=== PATIENT | male | born 1955 | race Caucasian/White ===

== ENCOUNTER 2021-03-08 13:04 | Emergency (ER) | payer OTHER ==
[~2021-03-08] VITALS: Ht 182.9 cm; Wt 158.8 kg
[~2021-03-08 13:04] MED LIST: CARI350T PO; FENT100T TD; ONDA8TAB87 PO
[2021-03-08 13:10] VITALS: BP 151/102
--- NOTE | 2021-03-08 13:16 | NUR ---
PT W/C ASSISTED TO AWAIT IN LOBBY
--- NOTE | 2021-03-08 13:48 | NUR ---
Patient wheelchair assisted to bed 7.
[2021-03-08] MEDS ORDERED: ONDANSETRON 4 MG/2 ML VIAL IVP ONE (13:50)
[2021-03-08] MEDS ORDERED: MORPHINE SULFATE 4 MG/ML SYR IVP ONE ×2 (13:50→16:25)
[2021-03-08] MEDS ORDERED: NACL 0.9% 1,000 ML IV ONE (13:50)
--- NOTE | 2021-03-08 14:00 | NUR ---
65 YEAR OLD MALE COMPLAINS OF LEFT SIDED HERNIA X 4 DAYS. PT STATES THAT HERNIA HAS BEEN PRESENT FOR 4 YEARS AND RECENTLY FELT INCREASED PAIN AND MORE BULGING FROM HERNIA. PT ALSO STATES SOME NAUSEA WITH VOMITTING. PT DENIES DIARRHEA OR BLOOD IN VOMIT/STOOL. PT AOX4, BREATHING EVEN AND UNLABORED, SKIN WARM AND DRY. BED IN LOWEST POSITION, LOCKED, BED RAIL UPX1. PMH - BACK SURGERY, STEMI (2017,2019), 2 HEART STENTS ALLERGIES - DENIES
[2021-03-08] MEDS ORDERED: KETOROLAC 15 MG/ML VIAL IVP ONE (15:05)
[2021-03-08 15:10] LABS: ALBUMIN 4.2 g/dL (3.4-5.0); ANION GAP 15.8 (8-16); CARBON DIOXIDE 22.5 mmol/L (21-32); POTASSIUM 4.3 mmol/L (3.5-5.1); TOTAL BILIRUBIN 0.4 mg/dL (0.0-1.0)
[2021-03-08 15:52] LABS: BASOPHILS # (AUTO) 0.1 K/uL (0.00-0.22); BASOPHILS % (AUTO) 0.7 % (0.0-2.0); EOSINOPHILS # (AUTO) 0.2 K/uL (0-0.4); EOSINOPHILS % (AUTO) 2.8 % (0.0-4.0); HEMATOCRIT 45.6 % (36-52); HEMOGLOBIN 15.1 g/dL (12.0-18.0); LYMPHOCYTES # (AUTO) 1.8 K/uL (2.0-11.5); LYMPHOCYTES % (AUTO) 20.3 % (20.5-51.1); MEAN CORPUSCULAR HEMOGLOBIN 29 pg (27-31); MEAN CORPUSCULAR HGB CONC 33 g/dL (33-37); MONOCYTES # (AUTO) 0.9 K/uL (0.8-1.0); MONOCYTES % (AUTO) 10.3 % (1.7-9.3); NEUTROPHILS # (AUTO) 5.8 K/uL (1.8-7.7); NEUTROPHILS % (AUTO) 65.9 % (42.2-75.2); PLATELET COUNT (AUTO) 362 K/uL (140-450); RED BLOOD CELL COUNT(AUTO) 5.19 MIL/uL (4.20-6.10); RED CELL DISTRIBUTION WIDTH 13.7 % (11.6-13.7); WHITE BLOOD COUNT (AUTO) 8.9 K/uL (4.8-10.8)
[2021-03-08 16:13] LABS: CREATININE 1.1 mg/dL (0.6-1.3)
[2021-03-08] MEDS ORDERED: IBUP-2213 PO (16:26)
[2021-03-08 17:14] VITALS: BP 154/84
--- NOTE | 2021-03-08 17:14 | NUR ---
Patient discharged with v/s stable. Written and verbal after care instructions given and explained. Patient alert, oriented and verbalized understanding of instructions. Wheel Chair Assisted with to car. All questions addressed prior to discharge. ID band removed. Patient advised to follow up with PMD. Rx of IBUPROFEN given. Patient educated on indication of medication including possible reaction and side effects. Opportunity to ask questions provided and answered.
== END 2021-03-08 17:14 | disposition home or self-care (01) ==
LOC: MED 13:04
DX: K64.9 Unspecified hemorrhoids (principal); I11.9 Hypertensive heart disease without heart failure; Z79.899 Other long term (current) drug therapy; Z98.890 Other specified postprocedural states
CPT/HCPCS: 36415; 74176; 80053; 82150; 83605; 85025; 96361; 96374; 96375; 96376; 99285; J1885; J2270; J2405; J7030

== ENCOUNTER 2021-03-16 16:05 | Inpatient (IN) | payer OTHER ==
[~2021-03-16] VITALS: Ht 182.9 cm; Wt 158.8 kg
[~2021-03-16 16:05] MED LIST changes: +IBUP-2213 PO
[2021-03-16 16:26] VITALS: BP 111/64
--- NOTE | 2021-03-16 16:36 | NUR ---
Pt taken to ER bed 8 via W/C.
--- NOTE | 2021-03-16 16:50 | NUR ---
65 YEAR OLD MALE COMPLAINS OF LEFT FLANK PAIN X 3 WEEKS. PT STATES PAIN HAS BEEN GETTING PROGRESSIVELY WORSE AND THAT HE NOW HAS NAUSEA, VOMITTING FOR PAST 3 DAYS. PT DENIES DYSURIA, BUT HAS HARD TIME URINATING WITH FOUL ODOR. PT AOX4, BREATHING EVEN AND UNLABORED, SKIN WARM AND DRY. BED IN LOWEST POSITION, LOCKED, BED RAIL UPX1. PMH - HTN, COPD, INCISIONAL HERNIA, HEART STENT ALLERGIES - NKA
[2021-03-16] MEDS ORDERED: MORPHINE SULFATE 4 MG/ML SYR IVP ONE ×3 (18:10→21:50)
[2021-03-16] MEDS ORDERED: ONDANSETRON 4 MG/2 ML VIAL IVP ONE (18:10)
--- NOTE | 2021-03-16 18:15 | NUR ---
PT STILL UNABLE TO URINATE, DR WALTON AWARE
[2021-03-16 18:45] LABS: ALBUMIN 3.5 g/dL (3.4-5.0); ANION GAP 9.3 (8-16); CARBON DIOXIDE 29.9 mmol/L (21-32); CREATININE 1.4 mg/dL (0.6-1.3); POTASSIUM 4.2 mmol/L (3.5-5.1); TOTAL BILIRUBIN 0.3 mg/dL (0.0-1.0)
[2021-03-16] MEDS ORDERED: NACL 0.9% 1,000 ML IV ONE ×2 (18:55→19:50)
[2021-03-16 19:02] LABS: BASOPHILS # (AUTO) 0.1 K/uL (0.00-0.22); BASOPHILS % (AUTO) 0.9 % (0.0-2.0); EOSINOPHILS # (AUTO) 0.6 K/uL (0-0.4); EOSINOPHILS % (AUTO) 6.5 % (0.0-4.0); HEMATOCRIT 45.3 % (36-52); HEMOGLOBIN 14.7 g/dL (12.0-18.0); MEAN CORPUSCULAR HEMOGLOBIN 29 pg (27-31); MEAN CORPUSCULAR HGB CONC 32 g/dL (33-37); MEAN CORPUSCULAR VOLUME 88.1 fL (80-94); MONOCYTES # (AUTO) 0.9 K/uL (0.8-1.0); MONOCYTES % (AUTO) 10.9 % (1.7-9.3); NEUTROPHILS # (AUTO) 4.9 K/uL (1.8-7.7); NEUTROPHILS % (AUTO) 57.7 % (42.2-75.2); PLATELET COUNT (AUTO) 316 K/uL (140-450); RED BLOOD CELL COUNT(AUTO) 5.14 MIL/uL (4.20-6.10); WHITE BLOOD COUNT (AUTO) 8.4 K/uL (4.8-10.8)
--- NOTE | 2021-03-16 19:13 | NUR ---
REPORT GIVEN TO TADEO OROZCO, TRANSFER OF CARE AT THIS TIME
--- NOTE | 2021-03-16 19:14 | NUR ---
RECEIVED REPORT FROM FRANKIE OROZCO FOR CONTINIUITY OF CARE
--- NOTE | 2021-03-16 19:20 | NUR ---
PT TAKEN TO CT
--- NOTE | 2021-03-16 19:36 | NUR ---
PT RETURNED FROM CT
--- NOTE | 2021-03-16 20:10 | NUR ---
COVID AURE SWAB COLLECTED AND SENT TO LAB
[2021-03-16] MEDS ORDERED: POTASSIUM CHLORIDE 10 MEQ TABER PO PRN (20:30)
[2021-03-16] MEDS ORDERED: MORPHINE SULFATE 2 MG/ML SYR IVP PRN (20:30)
[2021-03-16] MEDS ORDERED: ACETAMINOPHEN 325 MG TAB PO PRN (20:30)
--- NOTE | 2021-03-16 20:37 | NUR ---
RADIOLOGY AT BEDSIDE
[2021-03-16 20:38] LABS: PROTHROMBIN TIME 9.9 secs (10.8-13.4)
[2021-03-16] MEDS: NACL 0.9% 1,000 ML IV SCH (21:00)
[2021-03-16 22:42] LABS: CHOL/HDL RATIO 2.4 (1-4.5); FREE T4 (FREE THYROXINE) 1.05 ng/dL (0.76-1.46); MAGNESIUM 1.9 mg/dL (1.8-2.4); PHOSPHORUS 3.6 mg/dL (2.5-4.9); THYROID STIMULATING HORMONE 3.56 uIU/mL (0.34-3.74)
[2021-03-17] MEDS: MORPHINE SULFATE 2 MG/ML SYR IVP PRN ×4 (02:17→21:07)
--- NOTE | 2021-03-17 02:25 | NUR ---
URINE SAMPLE COLLECTED AND SENT TO LAB
[2021-03-17 03:11] LABS: APPEARANCE,URINE CLEAR (CLEAR); BILIRUBIN,URINE NEGATIVE (NEGATIVE); BLOOD, URINE NEGATIVE (NEGATIVE); COLOR,URINE YELLOW (YELLOW); LEUKOCYTE ESTERASE ,URINE NEGATIVE (NEGATIVE); NITRITE, URINE NEGATIVE (NEGATIVE); UGLUCOSE NEGATIVE (NEGATIVE)
[2021-03-17] MEDS: NACL 0.9% 1,000 ML IV SCH (03:17)
[2021-03-17 03:29] LABS: BARBITURATE, URINE NEGATIVE ng/ml (NEG <=200)
[2021-03-17 03:30] LABS: BENZODIAZEPINE, URINE NEGATIVE ng/mL (NEG <=200); CANNABINOID, URINE NEGATIVE ng/mL (NEG <=50); COCAINE, URINE NEGATIVE ng/mL (NEG <=300); OPIATE, URINE POSITIVE ng/mL (NEG <=2000); PHENCYCLIDINE SCREEN,URINE NEGATIVE ng/mL (NEG <=25)
--- NOTE | 2021-03-17 04:32 | NUR ---
pt asleep. visible chest rise and fall noted. no s/sx of pain or discomfort noted. safety measures in place. will continue to monitor.
[2021-03-17 05:27] LABS: BASOPHILS # (AUTO) 0.1 K/uL (0.00-0.22); EOSINOPHILS # (AUTO) 0.5 K/uL (0-0.4); EOSINOPHILS % (AUTO) 6.4 % (0.0-4.0); HEMATOCRIT 43.3 % (36-52); HEMOGLOBIN 14.2 g/dL (12.0-18.0); LYMPHOCYTES # (AUTO) 2.3 K/uL (2.0-11.5); LYMPHOCYTES % (AUTO) 31.3 % (20.5-51.1); MEAN CORPUSCULAR HEMOGLOBIN 29 pg (27-31); MEAN CORPUSCULAR HGB CONC 33 g/dL (33-37); MEAN CORPUSCULAR VOLUME 89.3 fL (80-94); MONOCYTES # (AUTO) 0.9 K/uL (0.8-1.0); MONOCYTES % (AUTO) 12.2 % (1.7-9.3); NEUTROPHILS # (AUTO) 3.6 K/uL (1.8-7.7); NEUTROPHILS % (AUTO) 49.1 % (42.2-75.2); PLATELET COUNT (AUTO) 285 K/uL (140-450); RED BLOOD CELL COUNT(AUTO) 4.85 MIL/uL (4.20-6.10); RED CELL DISTRIBUTION WIDTH 13.7 % (11.6-13.7); WHITE BLOOD COUNT (AUTO) 7.3 K/uL (4.8-10.8)
[2021-03-17 05:57] LABS: ANION GAP 11.3 (8-16); CARBON DIOXIDE 26.2 mmol/L (21-32); POTASSIUM 4.5 mmol/L (3.5-5.1)
--- NOTE | 2021-03-17 07:25 | NUR ---
report given to susan edwards for continuity of care
--- NOTE | 2021-03-17 07:48 | NUR ---
CLEAR LIQUID DIET, NPO MIDNIGHT PER DR ROBERT
--- NOTE | 2021-03-17 07:57 | NUR ---
Patient will be admitted to care of Dr Ferreira. Admited to [facility]. Will go to room 112A. Belongings list completed. Report to Patricio OROZCO.
[2021-03-17 08:00] VITALS: BP 151/73
--- NOTE | 2021-03-17 08:00 | NUR ---
PATIENT ARRIVED FROM ER. ABLE TO AMBULATE TO [facility] BED WITH STEADY GAIT. NO DISTRESS NOTED. LEFT FLANK PAIN WITHIN TOLERABLE. ON ROOM AIR. IV SITE INTACT. SKIN INTACT. ORIENTED PATIENT TO ROOM AND CALL LIGHT. REVIEWED PLAN OF CARE WITH PATIENT. PATIENT VERBALIZED UNDERSTANDING. SAFETY MEASURES IN PLACE, CALL LIGHT WITHIN REACH. WILL CONTINUE TO MONITOR.
[2021-03-17] MEDS: PANTOPRAZOLE 40 MG TABEC PO SCH (09:16)
[2021-03-17] MEDS: DEXT 5% / NACL 0.9% 500 ML IV SCH ×2 (09:16→12:40)
--- NOTE | 2021-03-17 09:19 | NUR ---
PATIENT COMPLAINS OF PAIN. SCHEDULED MEDICATIONS DUE GIVEN AND MORPHINE GIVEN AT THIS TIME. WILL CONTINUE TO MONITOR.
[2021-03-17] MEDS: HYDROcodone/APAP 7.5/325 MG 1 TAB PO PRN (14:04)
[2021-03-17] MEDS: ONDANSETRON 4 MG/2 ML VIAL IM/IVP PRN ×2 (14:55→21:16)
--- NOTE | 2021-03-17 14:55 | NUR ---
PATIENT COMPLAINS OF PAIN, NORCO MILDLY EFFECTIVE. MORPHINE GIVEN AT THIS TIME. ALSO COMPLAINS OF NAUSEA. ZOFRAN GIVEN AT THIS TIME. WILL CONTINUE TO MONITOR.
[2021-03-17 16:00] VITALS: BP 153/98
[2021-03-17] MEDS ORDERED: FURO-570 PO (17:12)
[2021-03-17] MEDS ORDERED: PANT40EC PO (17:12)
[2021-03-17] MEDS ORDERED: ASPI-1822 PO (17:12)
[2021-03-17] MEDS ORDERED: LIP80 PO (17:12)
[2021-03-17] MEDS ORDERED: DULO60EC75 PO (17:12)
[2021-03-17] MEDS ORDERED: ATA25 PO (17:12)
[2021-03-17] MEDS ORDERED: CARV6.25 PO (17:12)
[2021-03-17] MEDS ORDERED: CHOL20004 PO (17:12)
[2021-03-17] MEDS ORDERED: TAMS0.4C96 PO (17:12)
[2021-03-17] MEDS ORDERED: POTA10TE30 PO (17:12)
[2021-03-17] MEDS: DEXT 5% / NACL 0.9% 1,000 ML IV SCH (17:37)
--- NOTE | 2021-03-17 19:35 | NUR ---
GAVE REPORT TO GEOGRAPHY INSTRUCTOR NURSE FOR CONTINUITY OF CARE. PATIENT IN STABLE CONDITION.
--- NOTE | 2021-03-17 19:37 | NUR ---
RECEIVED REPORT FROM AM SHIFT RN. PATIENT IN BED AWAKE, ALERT, NO SOB NOTED. COMPLAINED OF PAIN ON THE LEFT FLANK WILL MEDICATE. SAFETY PRECAUTIONS IN PLACE. IVF OF D5NS INFUSING AT 125 ML/HR ON THE GRACIE. CALL LIGHT WITHIN REACH. WILL CONTINUE TO MONITOR.
[2021-03-17] MEDS: carvediloL 6.25 MG TAB PO SCH (21:04)
--- NOTE | 2021-03-17 21:13 | NUR ---
ADMINISTERED MEDICATIONS ORDERED.
--- NOTE | 2021-03-17 21:17 | NUR ---
COMPLAINED OF NAUSEA, ZOFRAN GIVEN ORDERED.
[2021-03-18] VITALS: BP 180/85
[2021-03-18] MEDS: DEXT 5% / NACL 0.9% 1,000 ML IV SCH ×3 (02:05→16:06)
--- NOTE | 2021-03-18 02:30 | NUR ---
PT GIVEN IVP MORPHINE FOR C/O OF SEVERE PAIN. BAG OF FLUID REPLACED. Addendum: 03/19/21 at 0318 by Estela Christiansen RN WRONG DATE
[2021-03-18] MEDS: ONDANSETRON 4 MG/2 ML VIAL IM/IVP PRN ×3 (03:18→23:27)
[2021-03-18] MEDS: MORPHINE SULFATE 2 MG/ML SYR IVP PRN ×2 (03:21→09:29)
--- NOTE | 2021-03-18 03:21 | NUR ---
COMPLAINED OF SEVERE FLANK PAIN, MORPHINE 4MG GIVEN ORDERED.
[2021-03-18 07:11] LABS: BASOPHILS % (AUTO) 0.6 % (0.0-2.0); EOSINOPHILS # (AUTO) 0.5 K/uL (0-0.4); EOSINOPHILS % (AUTO) 6.5 % (0.0-4.0); HEMOGLOBIN 13.8 g/dL (12.0-18.0); LYMPHOCYTES # (AUTO) 1.9 K/uL (2.0-11.5); MEAN CORPUSCULAR HEMOGLOBIN 29 pg (27-31); MEAN CORPUSCULAR HGB CONC 33 g/dL (33-37); MEAN CORPUSCULAR VOLUME 88.7 fL (80-94); MONOCYTES # (AUTO) 0.9 K/uL (0.8-1.0); MONOCYTES % (AUTO) 12.1 % (1.7-9.3); NEUTROPHILS # (AUTO) 4.2 K/uL (1.8-7.7); NEUTROPHILS % (AUTO) 55.8 % (42.2-75.2); PLATELET COUNT (AUTO) 272 K/uL (140-450); RED BLOOD CELL COUNT(AUTO) 4.74 MIL/uL (4.20-6.10); RED CELL DISTRIBUTION WIDTH 13.6 % (11.6-13.7); WHITE BLOOD COUNT (AUTO) 7.5 K/uL (4.8-10.8)
[2021-03-18 07:42] LABS: ANION GAP 9.4 (8-16); CARBON DIOXIDE 25.5 mmol/L (21-32); POTASSIUM 3.9 mmol/L (3.5-5.1)
[2021-03-18 08:00] VITALS: BP 186/87
[2021-03-18] MEDS: carvediloL 6.25 MG TAB PO SCH ×2 (08:23→21:41)
--- NOTE | 2021-03-18 08:50 | NUR ---
PATIENT HAS BEEN SCREENED AND CATEGORIZED LOW NUTRITION RISK. PATIENT WILL BE SEEN WITHIN 7 DAYS OF ADMISSION. 03/23/[address]
[2021-03-18] MEDS: PANTOPRAZOLE 40 MG TABEC PO SCH (09:00)
[2021-03-18] MEDS: FUROSEMIDE 40 MG TAB PO SCH (09:00)
[2021-03-18 09:06] LABS: T4 (THYROXINE) 7.9 ug/dL (4.5-12.0)
--- NOTE | 2021-03-18 10:13 | NUR ---
PT STATES DR Camille ROBERT ROUNDED YESTERDAY AND DISCUSSED PROCEDURE INCLUDING RISKS AND BENEFIT, PT DENIES ANY FURTHER QUESTIONS FOR DR ROBERT, PT VERBALIZED FULL UNDERSTANDING OF SURGERY, AGREES TO SIGN CONSENT.
--- NOTE | 2021-03-18 10:14 | NUR ---
PRE-OP CHG WIPE DONE.
--- NOTE | 2021-03-18 10:55 | NUR ---
PT LEFT TO ER VIA [facility].
[2021-03-18] MEDS ORDERED: ceFAZolin 1,000 MG VIAL ONE (11:06)
[2021-03-18] MEDS ORDERED: MIDAZOLAM 2 MG/2 ML VIAL ONE (11:10)
[2021-03-18] MEDS ORDERED: fentaNYL citrate 0.05 MG/ML VIAL ONE (11:10)
[2021-03-18] MEDS ORDERED: LABETALOL 100 MG/20 ML VIAL ONE (11:15)
[2021-03-18] MEDS ORDERED: SUCCINYLCHOLINE CHLORIDE 200 MG/10 ML VIAL IVP ONE ×2 (11:15)
[2021-03-18] MEDS ORDERED: PROPOFOL 200 MG/20 ML VIAL IV ONE (11:15)
[2021-03-18] MEDS ORDERED: SEVOFLURANE 250 ML BTL INH ONE (11:15)
[2021-03-18] MEDS ORDERED: LIDOCAINE 1% 500 MG/50 ML VIAL ONE (11:17)
[2021-03-18] MEDS ORDERED: BUPIVACAINE-MPF/EPI 0.25% 30 ML VIAL INJ ONE (11:17)
--- NOTE | 2021-03-18 11:25 | NUR ---
RECEIVED BEDSIDE REPORT FROM BRADLEY LINEBACKER CREWMEMBER NURSE FOR CONTINUITY OF CARE. PT IS IN THE OR FOR HERNIA REPAIR SURGERY. WILL WAIT FOR PTS ARRIVAL. PLAN OF CARE DISCUSSED.
--- NOTE | 2021-03-18 11:25 | NUR ---
ENDORSED PT TO ERNESTO BOLANOS FOR CONTINUITY OF CARE. PT IN ER.
[2021-03-18] MEDS ORDERED: ROCURONIUM 50 MG/5 ML VIAL IV ONE ×2 (11:39→12:15)
[2021-03-18] MEDS ORDERED: HYDROcodone/APAP 5/325 MG 1 TAB TAB PO PRN (11:40)
[2021-03-18] MEDS ORDERED: HYDROmorphone 1 MG/ML AMP IVP PRN ×2 (11:40→12:20)
[2021-03-18] MEDS ORDERED: ePHEDrine 50 MG/ML VIAL ONE (11:47)
[2021-03-18] MEDS ORDERED: DEXAMETHASONE 4 MG/ML VIAL ONE ×2 (11:58)
[2021-03-18] MEDS ORDERED: ONDANSETRON 4 MG/2 ML VIAL ONE (11:58)
--- NOTE | 2021-03-18 11:59 | NUR ---
DC PLANNIN YRS OLD MALE PATIENT WAS ADMITTED FROM HOME WITH A DX OF INCARCERATED HERNIA. PT HAS A HX OF CARDIOVASCULAR DISEASE S/P STENT PLACEMENT HTN, COPD, OBESITY AND BACK SURGERY. CT ABD SHOWED HERNIA. PT UNDERWENT REPAIR OF INCARCERATED LEFT FLANK HERNIA WITH MESH. ADMINISTERED IVF, IV ABX LEVAQUIN, PAIN MEDS WITH MORPHINE IV AND CONTINUED HOME MEDS. PT STATED HE HAS MOST OF SUPPLIES THAT HE NEEDS SUCH : WALKER, CANE ,WHEELCHAIR , SHOWER CHAIR AND HOSPITAL BED. DC PLAN TO GO HOME WITH HOME HEALTH IF NEEDED. CM TO FOLLOW
[2021-03-18] MEDS ORDERED: diphenhydrAMINE 50 MG/ML VIAL IVP PRN (12:20)
[2021-03-18] MEDS ORDERED: MEPERIDINE 25 MG/ML SYR IVP PRN (12:20)
[2021-03-18] MEDS ORDERED: ONDANSETRON 4 MG/2 ML VIAL IVP PRN (12:20)
[2021-03-18] MEDS: LACTATED RINGERS 1,000 ML IV SCH ×2 (12:20→20:40)
[2021-03-18] MEDS ORDERED: SUGAMMADEX SODIUM 200 MG/2 ML VIAL IV ONE (13:25)
[2021-03-18] MEDS ORDERED: MEPERIDINE 50 MG/ML SYR ONE (13:33)
--- NOTE | 2021-03-18 14:30 | NUR ---
PT IS BACK FROM THE OR. ABD BINDER IN PLACE. OR NURSE REPORTED THAT HERNIA REPAIR WAS COMPLETED WITH MESH IN PLACE AND ABD DRESSING. WILL MONITOR FOR BLEEDING. WILL MONITOR POST OP VS. PT IS STABLE AT THIS TIME.
--- NOTE | 2021-03-18 15:59 | NUR ---
POST-OP VITAL SIGNS COMPLETE. VS ARE STABLE. HR 83, BP 165/98, RR 19, O2 SAT 90%, TEMP 98.1 F, AND PT DENIES PAIN. NO BLEEDING NOTED ON DRESSING. ABD BINDER IN PLACE. WILL CONTINUE TO MONITOR.
[2021-03-18 16:00] VITALS: BP 157/90
[2021-03-18] MEDS: HYDROcodone/APAP 7.5/325 MG 1 TAB PO PRN (17:52)
--- NOTE | 2021-03-18 17:52 | NUR ---
PT STATES HE HAS PAIN IN HIS ABD AT A SCALE OF 6/10. PT WAS GIVEN NORCO FOR PAIN. PT DESCRIBES THE PAIN SHARP. WILL CONTINUE TO MONITOR PAIN.
[2021-03-18] MEDS: MORPHINE SULFATE 4 MG/ML SYR IVP PRN (18:37)
--- NOTE | 2021-03-18 18:37 | NUR ---
PT STATES THE PAIN HAS NOT BEEN REDUCED SINCE RECEIVING THE NORCO. PT NOW STATES THE PAIN IS AT A 10/10 IN THE ABD. PT IS IN DISTRESS. MEDICATED WITH MORPHINE ORDERED FOR PAIN. BP WAS 178/99 PRIOR TO ADMINISTRATION OF MEDICATION. WILL MONITOR PAIN AND BP.
--- NOTE | 2021-03-18 19:13 | NUR ---
PT STATES HE IS NAUSEOUS AND WAS GIVEN ZOFRAN FOR NAUSEA. WILL MONITOR PT.
--- NOTE | 2021-03-18 19:30 | NUR ---
RECEIVED REPORT FORM RN DAYSHIFT NURSE AT BEDSIDE FOR CONTINUITY OF CARE, PT IN STABLE CONDITION. PT LYING IN BED AOX4 ON ROOM AIR WITH LEFT UPPER ARM 20G INTACT AND RUNNING D5N/S AT 125MLS/HR. HE HAS SCD ON HE IS CONTINENT WITH URINAL AT BEDSIDE, ALL UNIVERSAL FALLS PRECAUTIONS IN PLACE.
--- NOTE | 2021-03-18 19:35 | NUR ---
ENDORSED PT TO GUNNER MATE NURSE FOR CONTINUITY OF CARE. PT IS STABLE AT THIS TIME. PLAN OF CARE DISCUSSED.
[2021-03-18 20:00] VITALS: BP 183/96
--- NOTE | 2021-03-18 20:00 | NUR ---
PT V/S FOLLOWS: T 97.6 P 96 R 20 B/P 183/96 02 95% ON ROOM AIR. PT GIVEN ORDERED COREG, WILL SPEAK WITH MD REGARDING PT B/P FOR PRN HTN ORDER.
[2021-03-18] MEDS ORDERED: hydrALAZINE 20 MG/ML VIAL IVP PRN (22:00)
[2021-03-18] MEDS ORDERED: HYDROmorphone 1 MG/ML AMP IVP SCH (22:00)
--- NOTE | 2021-03-18 23:15 | NUR ---
SPOKE WITH NEW ORDERED NOTED FOR HYDRALAZINE AND X1 DILAUDID DOSE, ALSO FLUIDS DECREASED TO 60MLS/HR. PT GIVEN MEDS ORDERED.
--- NOTE | 2021-03-18 23:45 | NUR ---
PT GIVEN ZOFRAN FOR C/OF NAUSEA ALL OTHER REQUESTS ATTENDED BY STAFF.
[2021-03-19] MEDS: MORPHINE SULFATE 4 MG/ML SYR IVP PRN ×4 (02:26→21:19)
--- NOTE | 2021-03-19 02:30 | NUR ---
NEW BAG OF FLUID HUNG, PT GIVEN IVP MORPHINE FOR SEVERE PAIN
[2021-03-19] MEDS: LACTATED RINGERS 1,000 ML IV SCH (04:23)
[2021-03-19 06:35] LABS: ANION GAP 13.6 (8-16); CARBON DIOXIDE 24.6 mmol/L (21-32); CREATININE 1.1 mg/dL (0.6-1.3); POTASSIUM 4.2 mmol/L (3.5-5.1)
[2021-03-19 06:51] LABS: HEMOGLOBIN 13.9 g/dL (12.0-18.0); LYMPHOCYTES # (AUTO) 0.8 K/uL (2.0-11.5); LYMPHOCYTES % (AUTO) 4.4 % (20.5-51.1); MEAN CORPUSCULAR HEMOGLOBIN 29 pg (27-31); MEAN CORPUSCULAR HGB CONC 34 g/dL (33-37); MEAN CORPUSCULAR VOLUME 86.5 fL (80-94); MONOCYTES % (AUTO) 5.9 % (1.7-9.3); NEUTROPHILS # (AUTO) 15.8 K/uL (1.8-7.7); NEUTROPHILS % (AUTO) 89.7 % (42.2-75.2); PLATELET COUNT (AUTO) 324 K/uL (140-450); RED BLOOD CELL COUNT(AUTO) 4.74 MIL/uL (4.20-6.10); RED CELL DISTRIBUTION WIDTH 13.5 % (11.6-13.7); WHITE BLOOD COUNT (AUTO) 17.6 K/uL (4.8-10.8)
[2021-03-19 08:00] VITALS: BP 160/78
[2021-03-19] MEDS: DEXT 5% / NACL 0.9% 1,000 ML IV SCH ×2 (08:40→20:00)
[2021-03-19] MEDS: PANTOPRAZOLE 40 MG TABEC PO SCH (09:00)
[2021-03-19] MEDS: FUROSEMIDE 40 MG TAB PO SCH (09:01)
[2021-03-19] MEDS: lisinopriL 20 MG TAB PO SCH (09:03)
[2021-03-19] MEDS: carvediloL 6.25 MG TAB PO SCH ×2 (09:05→20:05)
[2021-03-19] MEDS: LEVOFLOXACIN 750 MG/D5W PREMIX 150 ML IV SCH (10:51)
[2021-03-19] MEDS ORDERED: ECOTRIN 81 MG TABEC PO SCH (13:51)
[2021-03-19 16:00] VITALS: BP 148/78
--- NOTE | 2021-03-19 19:25 | NUR ---
RECEIVED REPORT FROM AM NURSE. PT. IS AWAKE, ALERT, IN NO DISTRESS NOTED. WILL CONTINUE TO MONITOR.
--- NOTE | 2021-03-19 20:05 | NUR ---
SCHEDULED MEDS GIVEN ORDERED.
[2021-03-19] MEDS: guaiFENesin DM 200/20 MG-10 ML 10 ML UDC PO PRN (23:12)
--- NOTE | 2021-03-19 23:40 | NUR ---
PT COMPLAINED OF SEVERE FLANK PAIN NOT YET DUE. NOTIFY MD WITH ORDER TO GIVE 2MG IVP. ORDER NOTED AND CARRIED OUT.
[2021-03-19] MEDS ORDERED: MORPHINE SULFATE 2 MG/ML SYR IVP SCH (23:45)
[2021-03-20] VITALS: BP 147/83
[2021-03-20] MEDS: ZOLPIDEM 5 MG TAB PO PRN (00:38)
[2021-03-20] MEDS: DEXT 5% / NACL 0.9% 1,000 ML IV SCH ×3 (00:40→20:34)
[2021-03-20] MEDS: MORPHINE SULFATE 4 MG/ML SYR IVP PRN ×4 (04:36→19:52)
[2021-03-20] MEDS: guaiFENesin DM 200/20 MG-10 ML 10 ML UDC PO PRN (06:36)
[2021-03-20 06:50] LABS: BASOPHILS % (AUTO) 0.2 % (0.0-2.0); EOSINOPHILS % (AUTO) 0.2 % (0.0-4.0); HEMOGLOBIN 13.7 g/dL (12.0-18.0); LYMPHOCYTES # (AUTO) 1.7 K/uL (2.0-11.5); LYMPHOCYTES % (AUTO) 11.1 % (20.5-51.1); MEAN CORPUSCULAR HEMOGLOBIN 29 pg (27-31); MEAN CORPUSCULAR HGB CONC 33 g/dL (33-37); MEAN CORPUSCULAR VOLUME 88.5 fL (80-94); MONOCYTES % (AUTO) 13.2 % (1.7-9.3); NEUTROPHILS # (AUTO) 11.4 K/uL (1.8-7.7); NEUTROPHILS % (AUTO) 75.3 % (42.2-75.2); PLATELET COUNT (AUTO) 299 K/uL (140-450); RED BLOOD CELL COUNT(AUTO) 4.75 MIL/uL (4.20-6.10); RED CELL DISTRIBUTION WIDTH 13.7 % (11.6-13.7); WHITE BLOOD COUNT (AUTO) 15.2 K/uL (4.8-10.8)
[2021-03-20 07:01] LABS: ANION GAP 10.4 (8-16); CARBON DIOXIDE 28.5 mmol/L (21-32); CREATININE 1.1 mg/dL (0.6-1.3); POTASSIUM 3.9 mmol/L (3.5-5.1)
[2021-03-20 07:45] VITALS: BP 159/89
--- NOTE | 2021-03-20 07:55 | NUR ---
RECEIVED REPORT FROM PM NURSE. PT NOW ASLEEP IN BED. LOOKS COMFORTABLE. IV INTACT D5 NS @ 125, BED AT LOWEST. LIGHT WITHIN REACH, WILL CONT MONITORING.
[2021-03-20] MEDS: PANTOPRAZOLE 40 MG TABEC PO SCH (09:24)
[2021-03-20] MEDS: ECOTRIN 81 MG TABEC PO SCH (09:24)
[2021-03-20] MEDS: lisinopriL 20 MG TAB PO SCH (09:25)
[2021-03-20] MEDS: FUROSEMIDE 40 MG TAB PO SCH (09:25)
[2021-03-20] MEDS: carvediloL 6.25 MG TAB PO SCH ×2 (09:26→20:34)
[2021-03-20] MEDS ORDERED: KETOROLAC 15 MG/ML VIAL IVP PRN (09:35)
[2021-03-20] MEDS: LEVOFLOXACIN 750 MG/D5W PREMIX 150 ML IV SCH (10:29)
--- NOTE | 2021-03-20 10:59 | NUR ---
ATTEMPTED TO SEE PATIENT THROUGHOUT MORNING FOR PHYSICAL THERAPY TREATMENT HOWEVER PATIENT REPORTS NOT FEELING WELL WITH LACK OF SLEEP AND CONTINUES WITH 9/10 INCISIONAL PAIN. PATIENT IS PRE-MEDICATED; RN AWARE. WILL FOLLOW UP TOMORROW IF APPROPRIATE.
[2021-03-20] MEDS: DOCUSATE SODIUM 100 MG GELCAP PO PRN (11:02)
[2021-03-20 18:25] VITALS: BP 149/91
--- NOTE | 2021-03-20 18:55 | NUR ---
NO SIGNIFICANT CHANGES OCCURED. PT REMAINED STABLE TRHOGUH SHIFT. PT HAD C/O PAIN AND PRN MORPHINE WAS GIVEN. INCREASED DOSE HAS BEEN CONTROLLING PTS PAIN. PT VS REMAINED STABLE. ALL MEETS FOR TODAY WILL ENDORSE RPEORT TO RN.
--- NOTE | 2021-03-20 20:00 | NUR ---
RECEIVED PATIENT AWAKE IN BED. PT REPORTS OF 8/10 LEFT ABDOMINAL PAIN. PRN MEDICATION ADMINISTERED. INCISION NOTED TO THE LEFT LATERAL SIDE OF THE ABDOMEN. INCISION CDI. ABDOMINAL BINDER IN PLACE. PT ON ROOM AIR. NO SOB AT THIS TIME. PLAN OF CARE DISCUSSED WITH THE PATIENT. PT VERBALIZED UNDERSTANDING. BED LOWERED WITH CALL LIGHT WITHIN REACH
--- NOTE | 2021-03-20 23:00 | NUR ---
PT ASLEEP IN BED. NO S/S OF DISTRESS NOTED
[2021-03-21] VITALS: BP 144/77
[2021-03-21] MEDS: MORPHINE SULFATE 4 MG/ML SYR IVP PRN ×6 (00:17→21:58)
[2021-03-21] MEDS: ZOLPIDEM 5 MG TAB PO PRN ×2 (00:17→23:50)
[2021-03-21 05:08] VITALS: BP 138/79
[2021-03-21] MEDS: DEXT 5% / NACL 0.9% 1,000 ML IV SCH ×4 (05:19→20:56)
[2021-03-21 07:05] LABS: BASOPHILS # (AUTO) 0.1 K/uL (0.00-0.22); BASOPHILS % (AUTO) 0.7 % (0.0-2.0); EOSINOPHILS # (AUTO) 0.3 K/uL (0-0.4); EOSINOPHILS % (AUTO) 2.1 % (0.0-4.0); HEMATOCRIT 41.7 % (36-52); HEMOGLOBIN 13.7 g/dL (12.0-18.0); LYMPHOCYTES # (AUTO) 2.1 K/uL (2.0-11.5); MEAN CORPUSCULAR HEMOGLOBIN 29 pg (27-31); MEAN CORPUSCULAR HGB CONC 33 g/dL (33-37); MEAN CORPUSCULAR VOLUME 87.9 fL (80-94); MONOCYTES # (AUTO) 2.9 K/uL (0.8-1.0); NEUTROPHILS # (AUTO) 9.7 K/uL (1.8-7.7); NEUTROPHILS % (AUTO) 64.2 % (42.2-75.2); PLATELET COUNT (AUTO) 317 K/uL (140-450); RED BLOOD CELL COUNT(AUTO) 4.74 MIL/uL (4.20-6.10); RED CELL DISTRIBUTION WIDTH 14.2 % (11.6-13.7); WHITE BLOOD COUNT (AUTO) 15.1 K/uL (4.8-10.8)
[2021-03-21 07:18] LABS: ANION GAP 12.6 (8-16); CARBON DIOXIDE 27.2 mmol/L (21-32); CREATININE 1.2 mg/dL (0.6-1.3); POTASSIUM 3.8 mmol/L (3.5-5.1)
--- NOTE | 2021-03-21 07:35 | NUR ---
RECEIVED BEDSIDE REPORT FROM SHEET METAL ERECTOR NURSE. PATIENT IS ASLEEP AROUSABLE BY TOUCH AND NAME, RESPIRATION EVEN UNLABORED ON ROOM AIR. NO DISTRESS NOTED. SKIN IS WARM AND DRY. IV PATENT AND INTACT. PLAN OF CARE WAS DISCUSSED. ALL SAFETY MEASURES IN PLACE. BED IS AT LOW POSITION. CALL LIGHT WITHIN REACH, WILL CONTINUE TO MONITOR
--- NOTE | 2021-03-21 07:36 | NUR ---
PT REPORT GIVEN TO AM NURSE. PT ENDORSED IN STABLE CONDITION
[2021-03-21 08:00] VITALS: BP 163/77
[2021-03-21] MEDS: LEVOFLOXACIN 750 MG/D5W PREMIX 150 ML IV SCH (08:49)
[2021-03-21] MEDS: ECOTRIN 81 MG TABEC PO SCH (08:49)
[2021-03-21] MEDS: PANTOPRAZOLE 40 MG TABEC PO SCH (08:49)
[2021-03-21] MEDS: FUROSEMIDE 40 MG TAB PO SCH (08:50)
[2021-03-21] MEDS: lisinopriL 20 MG TAB PO SCH (08:50)
[2021-03-21] MEDS: carvediloL 6.25 MG TAB PO SCH ×2 (08:51→20:55)
--- NOTE | 2021-03-21 09:10 | NUR ---
ALL SCHEDULED MEDS WERE GIVEN PER ORDER. WILL CONTINUE TO MONITOR
--- NOTE | 2021-03-21 09:28 | NUR ---
PATIENT COMPLAINED OF ABD PAIN 9/. PRN PAIN MEDS GIVEN PER ORDER. WILL CONTINUE TO MONITOR
--- NOTE | 2021-03-21 11:07 | NUR ---
CHECKED ON PATIENT, PATIENT IV LEAKING, ASSESS IV SITE. IV INFILTRATED WILL INSERT NEW ONE
--- NOTE | 2021-03-21 12:00 | NUR ---
INSERTED NEW IV TO THE RIGHT FOREARM 22 GAUGE, PATIENT TOLERATED IT WELL. WILL CONTINUE TO MONITOR
--- NOTE | 2021-03-21 13:42 | NUR ---
PATIENT COMPLAINED OF ABD PAIN 9/. PRN PAIN MEDS GIVEN PER ORDER. WILL CONTINUE TO MONITOR
[2021-03-21] MEDS: metroNIDAZOLE 500 MG/NS PREMIX 100 ML IV SCH ×2 (14:39→20:54)
--- NOTE | 2021-03-21 15:55 | NUR ---
DC PLANNING: CM SPOKE WITH CASSIE AT [facility], STATES THEY WILL ACCEPT PATIENT ON SERVICE FOR BALE OPENER AFTER DISCHARGE. CM WILL FOLLOW FOR NEEDS. Addendum: 03/22/21 at 1513 by Jannie Alston CM DC PLANNING: NOTIFIED [facility] THAT PATIENT IS DISCHARGING TODAY, THEY WILL SEE PATIENT THIS WEEKEND. CM WILL FOLLOW FOR NEEDS.
[2021-03-21 16:00] VITALS: BP 110/60
--- NOTE | 2021-03-21 16:00 | NUR ---
MADE ROUNDS PATIENT ASLEEP, NO DISTRESS NOTED, WILL CONTINUE TO MONITOR
--- NOTE | 2021-03-21 17:57 | NUR ---
PATIENT COMPLAINED OF ABD PAIN 7/10 PRN PAIN MEDS GIVEN PER ORDER. WILL CONTINUE TO MONITOR
--- NOTE | 2021-03-21 19:16 | NUR ---
ENDORSED PATIENT TO RAWHIDE TRIMMER NURSE FOR CONTINUITY OF CARE
--- NOTE | 2021-03-21 19:20 | NUR ---
Received bedside report from AM RN. Pt in bed watching TV. Pt AA OX4, greeted us politely in a simple conversation. Resp reg non-labored.no noted Resp. distress.
[2021-03-21 20:20] VITALS: BP 137/76
[2021-03-21] MEDS: DOCUSATE SODIUM 100 MG GELCAP PO PRN (20:54)
--- NOTE | 2021-03-21 21:00 | NUR ---
MED PASS DONE. PT TOLERATED PO MEDS WELL BP WNL. WATCHING TV.
[2021-03-21] MEDS: ONDANSETRON 4 MG/2 ML VIAL IM/IVP PRN (21:58)
[2021-03-22] MEDS: MORPHINE SULFATE 4 MG/ML SYR IVP PRN ×4 (01:54→15:09)
[2021-03-22 04:20] VITALS: BP 128/67
[2021-03-22] MEDS: metroNIDAZOLE 500 MG/NS PREMIX 100 ML IV SCH ×2 (06:03→12:54)
[2021-03-22] MEDS: DEXT 5% / NACL 0.9% 1,000 ML IV SCH (06:03)
--- NOTE | 2021-03-22 07:20 | NUR ---
REPORT TO AM RN. PT AWAKE IN NAD.
--- NOTE | 2021-03-22 07:25 | NUR ---
PT RECEIVED FROM ASSISTANT INFANT TEACHER RN. PT RESTING IN BED EYES CLOSED. BREATHING IS SYMMETRICAL AND UNLABORED. CALL LIGHT WITHIN REACH ALL SAFETY MEASURES ARE IN PLACE. Addendum: 03/22/21 at 0842 by Mercedes De Guzman RN RN DONE BY [place]
[2021-03-22 07:26] LABS: ANION GAP 8.4 (8-16); CARBON DIOXIDE 29.2 mmol/L (21-32); CREATININE 1.1 mg/dL (0.6-1.3); POTASSIUM 3.6 mmol/L (3.5-5.1)
[2021-03-22 07:27] LABS: BASOPHILS # (AUTO) 0.1 K/uL (0.00-0.22); BASOPHILS % (AUTO) 0.6 % (0.0-2.0); EOSINOPHILS # (AUTO) 0.6 K/uL (0-0.4); EOSINOPHILS % (AUTO) 4.6 % (0.0-4.0); HEMATOCRIT 41.5 % (36-52); HEMOGLOBIN 13.6 g/dL (12.0-18.0); LYMPHOCYTES % (AUTO) 15.8 % (20.5-51.1); MEAN CORPUSCULAR HEMOGLOBIN 29 pg (27-31); MEAN CORPUSCULAR HGB CONC 33 g/dL (33-37); MEAN CORPUSCULAR VOLUME 88.8 fL (80-94); MONOCYTES # (AUTO) 2.1 K/uL (0.8-1.0); MONOCYTES % (AUTO) 16.8 % (1.7-9.3); NEUTROPHILS # (AUTO) 7.7 K/uL (1.8-7.7); NEUTROPHILS % (AUTO) 62.2 % (42.2-75.2); PLATELET COUNT (AUTO) 350 K/uL (140-450); RED BLOOD CELL COUNT(AUTO) 4.67 MIL/uL (4.20-6.10); RED CELL DISTRIBUTION WIDTH 13.7 % (11.6-13.7); WHITE BLOOD COUNT (AUTO) 12.4 K/uL (4.8-10.8)
[2021-03-22] MEDS: PANTOPRAZOLE 40 MG TABEC PO SCH (08:27)
[2021-03-22] MEDS: ECOTRIN 81 MG TABEC PO SCH (08:27)
[2021-03-22] MEDS: LEVOFLOXACIN 750 MG/D5W PREMIX 150 ML IV SCH (08:27)
[2021-03-22] MEDS: FUROSEMIDE 40 MG TAB PO SCH (08:28)
[2021-03-22] MEDS: lisinopriL 20 MG TAB PO SCH (08:29)
[2021-03-22] MEDS: carvediloL 6.25 MG TAB PO SCH (08:29)
--- NOTE | 2021-03-22 08:35 | NUR ---
MEDICATIONS GIVEN PER MD ORDER. PT EDUCATED VERBALIZED UNDERSTANDING. NO S/SX OF DISTRESS AT THIS TIME. ALL SAFETY MEASURES ARE IN PLACE. Addendum: 03/22/21 at 0842 by Mercedes De Guzman RN RN DONE BY PR
--- NOTE | 2021-03-22 08:36 | NUR ---
PT AT BEDSIDE. PT DISCONNECTED FROM IV. PT EDUCATED TO CALL SOON DONE FOR THERAPY CONTINUATION Addendum: 03/22/21 at 0844 by Mercedes De Guzman RN RN DONE BY [place]
--- NOTE | 2021-03-22 08:41 | NUR ---
PT ASSESSED. S1 S2 PRESENT, PT ABLE TO MOVE ALL EXTREMITIES, LUNGS DIMINISHED.
--- NOTE | 2021-03-22 08:42 | NUR ---
DONE BY ME
[2021-03-22] MEDS ORDERED: POLYETHYLENE GLYCOL 17 GM/PKT PO SCH (09:00)
--- NOTE | 2021-03-22 09:00 | NUR ---
PT CONNECTED BACK TO FLUIDS FOR CONTINUATION OF THERAPY. PT AMBULATED AROUND UNIT PT TOLERATED WELL.
[2021-03-22] MEDS ORDERED: METR500T1 PO (10:02)
[2021-03-22] MEDS ORDERED: CIPR500T4 PO (10:02)
[2021-03-22] MEDS ORDERED: ACET-9527 PO (10:02)
--- NOTE | 2021-03-22 11:20 | NUR ---
PT REASSESSED. DENIES PAIN AT THIS TIME
--- NOTE | 2021-03-22 12:54 | NUR ---
MEDICATIONS GIVEN PER MD ORDER. PT EDUCATED AND VERBALIZED UNDERSTANDING . NO S/SX OF DISTRESS
[2021-03-22 13:42] VITALS: BP 117/73
--- NOTE | 2021-03-22 15:12 | NUR ---
PRN MEDICATIONS GIVEN PER MD ORDER
[2021-03-22 16:00] VITALS: BP 125/70
--- NOTE | 2021-03-22 17:35 | NUR ---
PT L;EFT UNIT VIA WHEEL CHAIR , IV REMOVED CANULA INTACT. PT EDUCATED AND VERBALIZED UNDERSTANDING OF CONTINUITY OF CARE, ARM BANDS REMOVED. PT AMBULATED TO PRIVATE VEHICLE TOLERATED WELL. PT LEFT IN STABLE CONDITION
== END 2021-03-22 17:35 | disposition home health service (06) | DRG 353 ==
LOC: MED 16:05 → MTU 20:29 → MMU 03-17 05:34 → MTU 03-17 08:41
PROVIDERS: ADMIT Family Medicine; ATTEND Family Medicine
PROC: 0WUF0JZ Supplement Abdominal Wall with Synthetic Substitute, Open Approach (ICD-10-PCS; principal; 2021-03-18 10:40)
DX: K46.0 Unspecified abdominal hernia with obstruction, without gangrene (principal); N17.0 Acute kidney failure with tubular necrosis; G92 Toxic encephalopathy; J18.9 Pneumonia, unspecified organism; Z68.42 Body mass index [BMI] 45.0-49.9, adult; J44.0 Chronic obstructive pulmonary disease with (acute) lower respiratory infection; Z20.822 Contact with and (suspected) exposure to COVID-19; E66.01 Morbid (severe) obesity due to excess calories; I10 Essential (primary) hypertension; I25.10 Atherosclerotic heart disease of native coronary artery without angina pectoris; K76.0 Fatty (change of) liver, not elsewhere classified; E78.2 Mixed hyperlipidemia; E86.0 Dehydration; F15.10 Other stimulant abuse, uncomplicated; Z95.5 Presence of coronary angioplasty implant and graft; Z87.820 Personal history of traumatic brain injury
CPT/HCPCS: 36415; 71045; 80048; 80053; 80305; 81003; 82150; 83036; 83605; 83690; 83735; 83880; 84100; 84436; 84439; 84443; 84479; 84484; 85025; 85610; 85730; 86140; 86886; 86900; 86901; 87040; 87081; 88302; 96361; 96374; 96375; 96376; 97110; 97116; 97163-GP; 97530; 99285; C1781; J0330; J0360; J0690; J1100; J1170; J1956; J2001; J2175; J2250; J2270; J2405; J2704; J3010; J3490; J7120; Q0163

== ENCOUNTER 2021-03-30 20:51 | Emergency (ER) | payer OTHER ==
[~2021-03-30] VITALS: Ht 182.9 cm; Wt 154.2 kg
[~2021-03-30 20:51] MED LIST changes: +ACET-9527 PO; +ASPI-1822 PO; +ATA25 PO; +CARV6.25 PO; +CHOL20004 PO; +CIPR500T4 PO; +DULO60EC75 PO; -FENT100T TD; +FURO-570 PO; +LIP80 PO; +METR500T1 PO; +PANT40EC PO; +POTA10TE30 PO; +TAMS0.4C96 PO
[2021-03-30 21:25] VITALS: BP 110/71
--- NOTE | 2021-03-30 21:25 | NUR ---
TO BED VIA WHEELCHAIR
--- NOTE | 2021-03-30 21:40 | NUR ---
RECEIVED IN BED 10 WITH C/O LUNDY TO SOLES OF BOTH FEET X 4 DAYS AFTER WALKING BAREFOOT ON HOT SURFACE. BASEBALL SIZED BLISTERS, RUPTURED NOTED. NO DRAINAGE NOTED AT THIS TIME
[2021-03-30] MEDS ORDERED: ACETAMINOPHEN 325 MG TAB PO ONE (21:55)
--- NOTE | 2021-03-30 22:08 | NUR ---
X-Ray at bedside.
--- NOTE | 2021-03-30 22:19 | NUR ---
DR. FAROOQ AT BEDSIDE FOR EXAM
[2021-03-30] MEDS ORDERED: MORPHINE SULFATE 4 MG/ML SYR IM ONE (22:30)
[2021-03-30] MEDS ORDERED: BACITRACIN ZINC/POLYMYXIN B OINT 30 GM TUBE TP SCH (22:30)
[2021-03-30] MEDS ORDERED: ONDANSETRON 4 MG ODT PO ONE (22:30)
[2021-03-30] MEDS ORDERED: BACITRACIN OINT 500 UNITS/GM PKT TP ONE (22:53)
[2021-03-30] MEDS ORDERED: BACI-389 TP (23:23)
[2021-03-30] MEDS ORDERED: CEPH-588 PO (23:24)
--- NOTE | 2021-03-30 23:40 | NUR ---
DSD APPLIED TO BOTH FEET.
[2021-03-30 23:55] VITALS: BP 110/71
--- NOTE | 2021-03-30 23:55 | NUR ---
Patient discharged with v/s stable. Written and verbal after care instructions given and explained. Patient alert, oriented and verbalized understanding of instructions. Wheel Chair Assisted with to car. All questions addressed prior to discharge. ID band removed. Patient advised to follow up with PMD. Rx of KEFLEX, POLYSPORIN given. Patient educated on indication of medication including possible reaction and side effects. Opportunity to ask questions provided and answered.
== END 2021-03-30 23:55 | disposition home or self-care (01) ==
LOC: MED 20:51
DX: T25.222A Burn of second degree of left foot, initial encounter (principal); T25.221A Burn of second degree of right foot, initial encounter; L03.116 Cellulitis of left lower limb; L03.115 Cellulitis of right lower limb; R19.7 Diarrhea, unspecified; I10 Essential (primary) hypertension; Z98.890 Other specified postprocedural states; Z79.899 Other long term (current) drug therapy; Z79.82 Long term (current) use of aspirin; X08.8XXA Exposure to other specified smoke, fire and flames, initial encounter; Y93.89 Activity, other specified; Y92.89 Other specified places as the place of occurrence of the external cause; Y99.8 Other external cause status
CPT/HCPCS: 16020; 73630; 90471; 90715; 96372; 99284; J2270; Q0162

== ENCOUNTER 2021-08-27 13:13 | Emergency (ER) | payer OTHER ==
[~2021-08-27] VITALS: Ht 182.9 cm; Wt 147.4 kg
[~2021-08-27 13:13] MED LIST changes: -ACET-9527 PO; -ATA25 PO; +CHLO118S2 TP; -CIPR500T4 PO; +HYDR-5080 PO; -IBUP-2213 PO; -METR500T1 PO; +MUPI2CRE22 NS; -ONDA8TAB87 PO; -PANT40EC PO; -POTA10TE30 PO
[2021-08-27 13:23] VITALS: BP 184/114
[2021-08-27] MEDS ORDERED: ONDANSETRON 4 MG ODT PO ONE ×2 (13:50→14:55)
[2021-08-27] MEDS ORDERED: fentaNYL citrate 0.05 MG/ML VIAL IM ONE ×2 (13:50→14:55)
--- NOTE | 2021-08-27 15:07 | NUR ---
Pt medicated and returned to lobby
[2021-08-27 15:45] VITALS: BP 164/99
--- NOTE | 2021-08-27 15:46 | NUR ---
Pt assessed and discharged by LA Villanueva
--- NOTE | 2021-08-27 15:46 | NUR ---
Patient discharged with v/s stable. Written and verbal after care instructions given and explained. Patient verbalized understanding. Ambulatory with steady gait. All questions addressed prior to discharge. Advised to follow up with PMD.
== END 2021-08-27 15:45 | disposition home or self-care (01) ==
LOC: MED 13:13
DX: M54.50 Low back pain, unspecified (principal); G89.29 Other chronic pain; I10 Essential (primary) hypertension; I25.10 Atherosclerotic heart disease of native coronary artery without angina pectoris; Z79.2 Long term (current) use of antibiotics; Z79.899 Other long term (current) drug therapy; Z79.891 Long term (current) use of opiate analgesic; Z79.82 Long term (current) use of aspirin; Z88.6 Allergy status to analgesic agent; Z88.5 Allergy status to narcotic agent
CPT/HCPCS: 72131; 96372; 99284; J3010; Q0162

== ENCOUNTER 2021-09-27 14:01 | Emergency (ER) | payer OTHER ==
[~2021-09-27] VITALS: Ht 182.9 cm; Wt 149.7 kg
[2021-09-27 14:23] VITALS: BP 141/93
--- NOTE | 2021-09-27 14:30 | NUR ---
Patient to bed 10.
--- NOTE | 2021-09-27 14:40 | NUR ---
Dr. Huang is evaluating patient at bedside
--- NOTE | 2021-09-27 14:50 | NUR ---
66 y/o BIB self c/o chest pain, SOB, dry cough, sore throat x 3 weeks. Patient A&Ox4, GCS 15 reports symptoms began 3 weeks ago in which he was seen at [place] and treated with IV ABX and fluids. Pt reports discharged home and completed 5 day Azithyromycin treatment 4 days ago. Patient presents to the ER stating symptoms are not improving. Pt reports sternal chest pain 4/10, dull/intermittent, non-radiating pain. Denies medications prior to arrival. Pt denies fever, chills, nausea, vomiting, diarrhea, headache, dizziness. Skin pink/warm/dry. Pt placed onto media monitor showing SpO2 96% on room air; HR 96, RR even/unlabored. Bed locked in lowest position, side rails x 1, call light in reach. PMH: cardiac stents/SC (November 2019), HTN Meds: hydralazine, atorvastatin, ASA, prasogrel, potassium, tasulosin, hydroxyzine, pantoprazole, furosemide, duloxetine, carvedilol, [place] A: tylenol, dilaudid
[2021-09-27 15:14] LABS: BASOPHILS # (AUTO) 0.1 K/uL (0.00-0.22); BASOPHILS % (AUTO) 0.8 % (0.0-2.0); EOSINOPHILS # (AUTO) 0.7 K/uL (0-0.4); EOSINOPHILS % (AUTO) 7.8 % (0.0-4.0); HEMATOCRIT 43.5 % (36-52); HEMOGLOBIN 14.7 g/dL (12.0-18.0); LYMPHOCYTES # (AUTO) 1.6 K/uL (2.0-11.5); LYMPHOCYTES % (AUTO) 17.8 % (20.5-51.1); MEAN CORPUSCULAR HEMOGLOBIN 29 pg (27-31); MEAN CORPUSCULAR HGB CONC 34 g/dL (33-37); MEAN CORPUSCULAR VOLUME 85.9 fL (80-94); MONOCYTES # (AUTO) 1.2 K/uL (0.8-1.0); MONOCYTES % (AUTO) 12.8 % (1.7-9.3); NEUTROPHILS # (AUTO) 5.5 K/uL (1.8-7.7); NEUTROPHILS % (AUTO) 60.8 % (42.2-75.2); PLATELET COUNT (AUTO) 336 K/uL (140-450); RED BLOOD CELL COUNT(AUTO) 5.06 MIL/uL (4.20-6.10); RED CELL DISTRIBUTION WIDTH 15.2 % (11.6-13.7); WHITE BLOOD COUNT (AUTO) 9.1 K/uL (4.8-10.8)
[2021-09-27] MEDS ORDERED: LEVO750T51 PO ×2 (15:51→17:16)
[2021-09-27] MEDS ORDERED: PRED20TA5 PO ×2 (15:51→17:16)
[2021-09-27] MEDS ORDERED: IBUP-2213 PO ×2 (15:51→17:16)
[2021-09-27] MEDS ORDERED: KETOROLAC 60 MG/2 ML VIAL IM ONE (16:00)
--- NOTE | 2021-09-27 16:00 | NUR ---
Pt reports 7/[address] chest and back pain. Dr. Huang made aware; new orders to be placed.
[2021-09-27] MEDS ORDERED: KETOROLAC 30 MG/ML VIAL ONE (16:19)
[2021-09-27] MEDS ORDERED: KETOROLAC 30 MG/ML VIAL IVP ONE (16:20)
[2021-09-27 16:47] LABS: ALBUMIN 3.4 g/dL (3.4-5.0); ANION GAP 15.5 (8-16); CARBON DIOXIDE 25.9 mmol/L (21-32); CREATININE 1.1 mg/dL (0.6-1.3); POTASSIUM 4.4 mmol/L (3.5-5.1); TOTAL BILIRUBIN 0.3 mg/dL (0.0-1.0)
[2021-09-27] MEDS ORDERED: MORPHINE SULFATE 4 MG/ML SYR IVP ONE (16:55)
--- NOTE | 2021-09-27 17:20 | NUR ---
Pt states + relief to pain 0/10 at this time. All pt needs met.
--- NOTE | 2021-09-27 17:24 | NUR ---
IV removed, catheter intact and site benign. Applied folded 2x2 gauze and tape to stop bleeding.
[2021-09-27 17:26] VITALS: BP 142/79
--- NOTE | 2021-09-27 17:26 | NUR ---
Patient discharged with v/s stable. Written and verbal after care instructions given and explained. Patient alert, oriented and verbalized understanding of instructions. Ambulatory with steady gait. All questions addressed prior to discharge. ID band removed. Patient advised to follow up with PMD. Rx of Ibuprofen, Levofloxacin, Prednisone given. Patient educated on indication of medication including possible reaction and side effects. Opportunity to ask questions provided and answered.
== END 2021-09-27 17:26 | disposition home or self-care (01) ==
LOC: MED 14:01
DX: J18.9 Pneumonia, unspecified organism (principal); I11.9 Hypertensive heart disease without heart failure; Z88.5 Allergy status to narcotic agent; Z88.8 Allergy status to other drugs, medicaments and biological substances
CPT/HCPCS: 36415; 71045; 80053; 83880; 84484; 85025; 93005; 96374; 96375; 99285; J1885; J2270; Q0092

== ENCOUNTER 2021-10-05 20:22 | Inpatient (IN) | payer OTHER, SELFPAY ==
[~2021-10-05] VITALS: Ht 182.9 cm; Wt 157.4 kg
[~2021-10-05 20:22] MED LIST changes: +IBUP-2213 PO; +LEVO750T51 PO; +PRED20TA5 PO
[2021-10-05 20:48] VITALS: BP 155/71
--- NOTE | 2021-10-05 20:55 | NUR ---
pt taken to bed 05 using w/c.
--- NOTE | 2021-10-05 21:14 | NUR ---
Dr. Romero at bedside to exam patient.
[2021-10-05] MEDS ORDERED: NACL 0.9% 1,000 ML IV ONE ×2 (21:25→22:25)
[2021-10-05] MEDS ORDERED: ALBUTEROL SULFATE/IPRATROPIU 3 ML SOL IH ONE ×2 (21:25)
[2021-10-05] MEDS ORDERED: methylPREDNISolone SS 125 MG/2 ML VIAL IVP ONE (21:25)
--- NOTE | 2021-10-05 21:42 | NUR ---
COVID-19 and Flu swabs collected and sent to lab.
--- NOTE | 2021-10-05 21:44 | NUR ---
CXR at bedside.
--- NOTE | 2021-10-05 21:50 | NUR ---
Patient signs consent for CT scan with contrast.
--- NOTE | 2021-10-05 21:55 | NUR ---
RT at bedside for Breathing treatments.
[2021-10-05 21:56] LABS: BASOPHILS # (AUTO) 0.1 K/uL (0.00-0.22); BASOPHILS % (AUTO) 0.4 % (0.0-2.0); EOSINOPHILS # (AUTO) 0.9 K/uL (0-0.4); EOSINOPHILS % (AUTO) 4.4 % (0.0-4.0); HEMATOCRIT 44.3 % (36-52); HEMOGLOBIN 14.8 g/dL (12.0-18.0); LYMPHOCYTES # (AUTO) 1.7 K/uL (2.0-11.5); LYMPHOCYTES % (AUTO) 8.2 % (20.5-51.1); MEAN CORPUSCULAR HEMOGLOBIN 29 pg (27-31); MEAN CORPUSCULAR HGB CONC 34 g/dL (33-37); MEAN CORPUSCULAR VOLUME 86.5 fL (80-94); MONOCYTES # (AUTO) 1.6 K/uL (0.8-1.0); MONOCYTES % (AUTO) 7.5 % (1.7-9.3); NEUTROPHILS # (AUTO) 16.4 K/uL (1.8-7.7); NEUTROPHILS % (AUTO) 79.5 % (42.2-75.2); PLATELET COUNT (AUTO) 320 K/uL (140-450); RED BLOOD CELL COUNT(AUTO) 5.12 MIL/uL (4.20-6.10); RED CELL DISTRIBUTION WIDTH 15.9 % (11.6-13.7); WHITE BLOOD COUNT (AUTO) 20.7 K/uL (4.8-10.8)
[2021-10-05 22:14] LABS: ALBUMIN 3.4 g/dL (3.4-5.0); ANION GAP 13.7 (8-16); CARBON DIOXIDE 28.5 mmol/L (21-32); CREATININE 0.9 mg/dL (0.6-1.3); POTASSIUM 4.2 mmol/L (3.5-5.1); TOTAL BILIRUBIN 0.5 mg/dL (0.0-1.0)
[2021-10-05] MEDS ORDERED: AZITHROMYCIN 250 MG TAB PO ONE (22:25)
[2021-10-05] MEDS ORDERED: cefTRIAXone 2,000 MG in DEXTROSE 5% 100 ML IV ONE (22:25)
[2021-10-05] MEDS ORDERED: cefTRIAXone 2,000 MG VIAL ONE (22:39)
--- NOTE | 2021-10-05 23:14 | NUR ---
Patient reported, lower back pain, pain rate 04/02, Dr. Caraballo notified.
[2021-10-05] MEDS ORDERED: MORPHINE SULFATE 4 MG/ML SYR IVP ONE (23:25)
[2021-10-06] MEDS ORDERED: HYDROcodone/APAP 5/325 MG 1 TAB TAB PO PRN (00:10)
[2021-10-06] MEDS ORDERED: POTA10TA70 PO (00:28)
--- NOTE | 2021-10-06 00:32 | NUR ---
Med rec reviewed.
[2021-10-06] MEDS ORDERED: PRASUGREL PO (00:38)
[2021-10-06] MEDS ORDERED: ATA25 PO (00:38)
[2021-10-06] MEDS ORDERED: OXYC5TAB4 PO (00:38)
--- NOTE | 2021-10-06 01:04 | NUR ---
Moved to hospital bed.
[2021-10-06] MEDS ORDERED: MORPHINE SULFATE 4 MG/ML SYR IVP ONE (01:30)
--- NOTE | 2021-10-06 02:28 | NUR ---
Patient reported, back pain, and need more medication, Given Morphine 4 mg IV as order by ERNESTO Wade.
[2021-10-06] MEDS ORDERED: HYDR-1098 PO (03:12)
[2021-10-06] MEDS ORDERED: PRAS10TA8 PO (03:16)
--- NOTE | 2021-10-06 03:19 | NUR ---
Patient appears to be resting comfortably in bed.
--- NOTE | 2021-10-06 04:16 | NUR ---
Patient is sleeping,
--- NOTE | 2021-10-06 05:39 | NUR ---
Patient reported, back pain, 810.
[2021-10-06] MEDS: MORPHINE SULFATE 2 MG/ML SYR IVP PRN ×4 (05:58→21:40)
--- NOTE | 2021-10-06 06:46 | NUR ---
Patient is sleeping.
--- NOTE | 2021-10-06 07:12 | NUR ---
Report given to ERNESTO Holcomb and endorse care of patient.
[2021-10-06] MEDS ORDERED: ONDANSETRON 4 MG/2 ML VIAL IVP PRN (07:15)
--- NOTE | 2021-10-06 07:28 | NUR ---
RECEIVED REPORT FROM ERNESTO WRIGHT. ASSUMED CARE AT THIS TIME.
--- NOTE | 2021-10-06 08:45 | NUR ---
PATIENT PROVIDED WITH BREAKFAST TRAY, SITTING UP IN BED EATING. PATIENT ON BEDSIDE JOB DEVELOPER, WILL COTINUE TO MONITOR.
[2021-10-06] MEDS ORDERED: ALBUTEROL SULFATE/IPRATROPIU 3 ML SOL IH PRN (09:00)
[2021-10-06] MEDS ORDERED: PRASUGREL HCL 10 MG PO SCH (09:00)
--- NOTE | 2021-10-06 09:54 | NUR ---
Ultrasound at bedside.
[2021-10-06] MEDS: ASPIRIN 81 MG TAB.CHEW PO SCH (09:57)
[2021-10-06] MEDS: hydrALAZINE 25 MG TAB PO SCH ×2 (09:57→21:04)
[2021-10-06] MEDS: HYDROXYZINE HYDROCHLORIDE 25 MG TAB PO SCH ×2 (09:57→22:53)
[2021-10-06] MEDS: TAMSULOSIN 0.4 MG CAP PO SCH (09:58)
[2021-10-06] MEDS: carvediloL 6.25 MG TAB PO SCH (09:58)
[2021-10-06] MEDS: DULoxetine 30 MG CAPDR PO SCH (09:58)
[2021-10-06] MEDS: ATORVASTATIN 80 MG TAB PO SCH (09:59)
[2021-10-06] MEDS: POTASSIUM CHLORIDE 10 MEQ TABER PO SCH (09:59)
[2021-10-06] MEDS: FUROSEMIDE 40 MG TAB PO SCH (09:59)
[2021-10-06] MEDS: CHOLECALCIFEROL 1,000 IU TAB PO SCH (10:00)
--- NOTE | 2021-10-06 10:20 | NUR ---
PATIENT C/O 9/10 BACK PAIN, MEDICATED WITH MORPHINE PER PRN ORDER.
[2021-10-06] MEDS: LEVOFLOXACIN 500 MG/D5W PREMIX 100 ML IV SCH (10:22)
[2021-10-06] MEDS: methylPREDNISolone SS 40 MG/ML VIAL IVP SCH ×2 (10:23→22:53)
--- NOTE | 2021-10-06 11:46 | NUR ---
S/W PATIENTS PAWEL AND GIVEN UPDATE ON PATIENT CONDITION.
--- NOTE | 2021-10-06 12:42 | NUR ---
PATIENT PROVIDED WITH LUNCH TRAY, SITTING UP IN BED EATING. PATIENT ON BEDSIDE DETASSELER, WILL CONTINUE TO MONITOR.
[2021-10-06] MEDS: oxyCODONE 5 MG TAB PO PRN (12:52)
--- NOTE | 2021-10-06 12:52 | NUR ---
PATIENT CONTINUING TO C/O 9/10 BACK PAIN, MEDICATED WITH OXYCODONE PER PRN ORDER.
[2021-10-06] MEDS ORDERED: CLONIDINE HYDROCHLORIDE 0.1 MG TAB PO SCH (15:11)
--- NOTE | 2021-10-06 17:36 | NUR ---
PATIENT PROVIDED WITH DINNER TRAY, SITTING UP IN BED EATING. PATIENT ON BEDSIDE DAIRY MANUFACTURING TECHNOLOGIST, WILL CONTINUE TO MONITOR.
--- NOTE | 2021-10-06 18:15 | NUR ---
PATIENT CONTINUING TO C/O PAIN, DR. LLANES CALLED TO REQUEST ORDER CHANGE, NO ANSWER MESSAGE LEFT.
--- NOTE | 2021-10-06 19:15 | NUR ---
Pt report given to JG DAVIS. Transfer of care at this time.
--- NOTE | 2021-10-06 19:49 | NUR ---
PROVIDED PT WATER. PT REQUEST MORPHINE. MADE PT AWARE THAT MORPHIE NOT DUE FOR 1 MORE HOUR.
--- NOTE | 2021-10-06 20:53 | NUR ---
Patient will be admitted to care of DR. LLANES. Admited to TELE. Will go to room 125a. Belongings list completed. Report to santiago.
[2021-10-06 21:04] VITALS: BP 166/85
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
[2021-10-06] MEDS ORDERED: HYDROXYZINE HYDROCHLORIDE 25 MG TAB ONE (21:30)
[2021-10-07] VITALS: BP 167/102
--- NOTE | 2021-10-07 | NUR ---
C/O PAIN - WILL MEDICATE
[2021-10-07] MEDS: oxyCODONE 5 MG TAB PO PRN (00:50)
[2021-10-07] MEDS: MORPHINE SULFATE 2 MG/ML SYR IVP PRN ×4 (03:43→18:20)
[2021-10-07 04:00] VITALS: BP 157/100
--- NOTE | 2021-10-07 06:00 | NUR ---
BP 180 /100 - RESTING OBN BED BEARABLE PAIN HE SAID - WILL RE CHECK THE BP
--- NOTE | 2021-10-07 06:30 | NUR ---
BP RE CHECK - 151/ 100 - WILL ENDORSE . O2 SAT WNL .
--- NOTE | 2021-10-07 07:30 | NUR ---
RECEIVED REPORT FROM EHR TRAINER. PT IN BED WITH HOB ELEVATED. AOX4, ABLE TO MAKE NEEDS KNOW, WITH C/O BACK PAIN 04/02, NO SOB. WITH LFA 22G RUNNING NS AT TKO. SKIN INTACT. SAFETY PRECAUTIONS IN PLACE. WILL CONTINUE TO MONITOR
[2021-10-07 08:00] VITALS: BP 187/105
--- NOTE | 2021-10-07 08:00 | NUR ---
ENDORSED - PT - STABLE .
[2021-10-07 08:33] LABS: BASOPHILS % (AUTO) 0.1 % (0.0-2.0); HEMATOCRIT 44.2 % (36-52); HEMOGLOBIN 14.6 g/dL (12.0-18.0); LYMPHOCYTES # (AUTO) 1.1 K/uL (2.0-11.5); LYMPHOCYTES % (AUTO) 5.8 % (20.5-51.1); MEAN CORPUSCULAR HEMOGLOBIN 29 pg (27-31); MEAN CORPUSCULAR HGB CONC 33 g/dL (33-37); MEAN CORPUSCULAR VOLUME 87.3 fL (80-94); MONOCYTES # (AUTO) 0.9 K/uL (0.8-1.0); MONOCYTES % (AUTO) 4.7 % (1.7-9.3); NEUTROPHILS # (AUTO) 16.4 K/uL (1.8-7.7); NEUTROPHILS % (AUTO) 89.4 % (42.2-75.2); PLATELET COUNT (AUTO) 375 K/uL (140-450); RED BLOOD CELL COUNT(AUTO) 5.06 MIL/uL (4.20-6.10); RED CELL DISTRIBUTION WIDTH 16.2 % (11.6-13.7); WHITE BLOOD COUNT (AUTO) 18.4 K/uL (4.8-10.8)
[2021-10-07] MEDS: ASPIRIN 81 MG TAB.CHEW PO SCH (08:41)
[2021-10-07] MEDS: hydrALAZINE 25 MG TAB PO SCH ×2 (08:41→20:45)
[2021-10-07] MEDS: methylPREDNISolone SS 40 MG/ML VIAL IVP SCH ×2 (08:41→20:49)
[2021-10-07] MEDS: LEVOFLOXACIN 500 MG/D5W PREMIX 100 ML IV SCH (08:41)
[2021-10-07] MEDS: TAMSULOSIN 0.4 MG CAP PO SCH (08:42)
[2021-10-07] MEDS: HYDROXYZINE HYDROCHLORIDE 25 MG TAB PO SCH ×2 (08:42→20:46)
[2021-10-07] MEDS: CHOLECALCIFEROL 1,000 IU TAB PO SCH (08:42)
[2021-10-07] MEDS: DULoxetine 30 MG CAPDR PO SCH (08:42)
[2021-10-07] MEDS: ATORVASTATIN 80 MG TAB PO SCH (08:42)
[2021-10-07] MEDS: POTASSIUM CHLORIDE 10 MEQ TABER PO SCH (08:42)
[2021-10-07] MEDS: carvediloL 6.25 MG TAB PO SCH (08:42)
[2021-10-07] MEDS: FUROSEMIDE 40 MG TAB PO SCH (08:42)
[2021-10-07 08:56] LABS: MAGNESIUM 2.3 mg/dL (1.8-2.4); PHOSPHORUS 3.9 mg/dL (2.5-4.9)
[2021-10-07 09:09] LABS: ANION GAP 13.1 (8-16); CARBON DIOXIDE 26.2 mmol/L (21-32); CREATININE 0.9 mg/dL (0.6-1.3); POTASSIUM 4.3 mmol/L (3.5-5.1)
--- NOTE | 2021-10-07 09:30 | NUR ---
DUE MEDS GIVEN TOLERATED WELL
[2021-10-07] MEDS: HYDROmorphone 1 MG/ML AMP IVP PRN ×3 (10:18→22:19)
--- NOTE | 2021-10-07 10:18 | NUR ---
WITH C/O BACK PAIN 04/02, DILAUDID GIVEN ORDERED
--- NOTE | 2021-10-07 10:56 | NUR ---
PATIENT HAS BEEN SCREENED AND CATEGORIZED MODERATE NUTRITION RISK. PATIENT WILL BE SEEN WITHIN 3-5 DAYS OF ADMISSION. [address]IL[address]
[2021-10-07 12:00] VITALS: BP 147/72
--- NOTE | 2021-10-07 13:00 | NUR ---
SEEN BY PT
[2021-10-07] MEDS ORDERED: lisinopriL 10 MG TAB PO SCH (15:05)
[2021-10-07 16:00] VITALS: BP 170/101
--- NOTE | 2021-10-07 16:20 | NUR ---
WITH C/O BACK PAIN 04/02, DILAUDID GIVEN ORDERED
--- NOTE | 2021-10-07 18:25 | NUR ---
PT RESTING IN BED, NO SOB ON ROOM AIR. WITH C/O BACK PAIN 04/02, DILAUDID GIVEN ORDERED, Addendum: 10/07/21 at 1826 by Omar Kendrick RN MORPHINE WAS GIVEN NOT DILAUDID
--- NOTE | 2021-10-07 19:25 | NUR ---
RECEIVED PT SLEEPING, EASILY AROUSABLE, AAOX4, ABLE TO MAKE NEEDS KNOWN, DENIES ANY PAIN, IVF INFUSING WELL AT TKO RATE, PLAN OF CARE DISCUSSED, SAFETY MEASURES IN PLACE, CALL LIGHT WITHIN REACH.
[2021-10-07 20:00] VITALS: BP 159/93
--- NOTE | 2021-10-07 22:20 | NUR ---
MEDICATED PRN FOR BACK PAIN WITH DILAUDID IVP, REPOSITIONED SELF WITH ASSIST, VOIDED FREELY PER URINAL, MONITORED CLOSELY.
[2021-10-08] MEDS: MORPHINE SULFATE 2 MG/ML SYR IVP PRN ×5 (02:22→23:28)
--- NOTE | 2021-10-08 02:25 | NUR ---
PT AWAKEN BY BACK PAIN, MEDICATED PRN WITH MORPHINE IVP, MONITORED CLOSELY.
[2021-10-08 04:00] VITALS: BP 174/87
[2021-10-08] MEDS: HYDROmorphone 1 MG/ML AMP IVP PRN ×5 (04:46→23:29)
--- NOTE | 2021-10-08 04:50 | NUR ---
BP ELEVATED- 174/87, COMPLAINING OF BACK PAIN 05/03, DENIES CHEST PAIN, NO SOB NOTED, MEDICATED PRN WITH DILAUDID IVP, MONITORED CLOSELY.
[2021-10-08 05:36] VITALS: BP 166/94
--- NOTE | 2021-10-08 07:35 | NUR ---
PT AWAKE, NO SIGNS OF DISTRESS, REPORT GIVEN TO ERNESTO WILLS FOR CONTINUITY OF CARE.
[2021-10-08 08:00] VITALS: BP 153/115
--- NOTE | 2021-10-08 08:00 | NUR ---
RECEIVED REPORT FROM BULLET MAKER FOR CONTINUITY OF CARE. PATIENT IS ALERT AWAKE ORIENTED X4, NOT IN DISTRESS NOTED. DENIES PAIN AT THIS TIME. WITH SALINE LOCK ON THE LEFT FORE ARM G 20, INTACT. CALL LIGHT WITHIN REACH,. WILL CONTINUE TO MONITOR.
[2021-10-08] MEDS: CHOLECALCIFEROL 1,000 IU TAB PO SCH (08:54)
[2021-10-08] MEDS: TAMSULOSIN 0.4 MG CAP PO SCH (08:55)
[2021-10-08] MEDS: DULoxetine 30 MG CAPDR PO SCH (08:55)
[2021-10-08] MEDS: ASPIRIN 81 MG TAB.CHEW PO SCH (08:55)
[2021-10-08] MEDS: POTASSIUM CHLORIDE 10 MEQ TABER PO SCH (08:55)
[2021-10-08] MEDS: HYDROXYZINE HYDROCHLORIDE 25 MG TAB PO SCH ×2 (08:55→21:00)
[2021-10-08] MEDS: ATORVASTATIN 80 MG TAB PO SCH (08:56)
[2021-10-08] MEDS: hydrALAZINE 25 MG TAB PO SCH ×2 (08:56→21:00)
[2021-10-08] MEDS: FUROSEMIDE 40 MG TAB PO SCH (08:56)
[2021-10-08] MEDS: methylPREDNISolone SS 40 MG/ML VIAL IVP SCH ×2 (08:57→21:00)
[2021-10-08] MEDS: LEVOFLOXACIN 500 MG/D5W PREMIX 100 ML IV SCH (08:57)
[2021-10-08] MEDS ORDERED: lisinopriL 10 MG TAB PO SCH (09:00)
[2021-10-08] MEDS: carvediloL 6.25 MG TAB PO SCH (09:02)
[2021-10-08] MEDS: MUPIROCIN CA NASAL 2% 1GM TUBE NS SCH (11:42)
[2021-10-08] MEDS: CHLORHEXADINE GLUC 2% CLOTH TP SCH (11:44)
--- NOTE | 2021-10-08 12:00 | NUR ---
PHYSICAL THERAPY AT BEDSIDE. DISCONNECTED IV LINES. WILL MONITOR.
--- NOTE | 2021-10-08 13:47 | NUR ---
MEDICATED WITH MORPHINE FOR PAIN. SEE PAIN ASSESSMENT AND REASSESSMENT.
[2021-10-08 16:00] VITALS: BP 131/92
--- NOTE | 2021-10-08 18:50 | NUR ---
DINNER AT BEDSIDE. PT OBSERVED WITH GOOD APPETITE. PRN PAIN MEDICATION GIVEN. SEE eMAR. PT STABLE. IN NO DISTRESS. NO SOB NOTED. ALL NEEDS MET AT THIS TIME. SAFE PRECAUTIONS IN PLACE. WILL ENDORSE CARE TO NIGHTSHIFT.
--- NOTE | 2021-10-08 20:00 | NUR ---
PT IS RESTING WELL WHILE WATCHING TV, SHARES ABOUT HIS EXCITEMENT OF HIS DISCHARGE, V/S IS STABLE AND WILL CONTINUE TO MONITOR
[2021-10-09 01:38] VITALS: BP 149/79
[2021-10-09] MEDS: MORPHINE SULFATE 2 MG/ML SYR IVP PRN (07:00)
[2021-10-09] MEDS: HYDROmorphone 1 MG/ML AMP IVP PRN (07:01)
--- NOTE | 2021-10-09 07:30 | NUR ---
REPORT RECEIVED FROM PM RN, NO ACUTE DISTRESS, PT STABLE, DENIES PAIN OR SOB, SAFETY MEASURES MAINTAINED, WILL CONTINUE TO MONITOR
[2021-10-09 08:00] VITALS: BP 138/78
[2021-10-09] MEDS ORDERED: lisinopriL 20 MG TAB PO SCH (09:00)
[2021-10-09] MEDS: ATORVASTATIN 80 MG TAB PO SCH (09:10)
[2021-10-09] MEDS: ASPIRIN 81 MG TAB.CHEW PO SCH (09:10)
[2021-10-09] MEDS: CHOLECALCIFEROL 1,000 IU TAB PO SCH (09:10)
[2021-10-09] MEDS: POTASSIUM CHLORIDE 10 MEQ TABER PO SCH (09:10)
[2021-10-09] MEDS: TAMSULOSIN 0.4 MG CAP PO SCH (09:10)
[2021-10-09] MEDS: carvediloL 6.25 MG TAB PO SCH (09:11)
[2021-10-09] MEDS: FUROSEMIDE 40 MG TAB PO SCH (09:11)
[2021-10-09] MEDS: DULoxetine 30 MG CAPDR PO SCH (09:11)
[2021-10-09] MEDS: hydrALAZINE 25 MG TAB PO SCH (09:11)
[2021-10-09] MEDS: methylPREDNISolone SS 40 MG/ML VIAL IVP SCH (09:12)
[2021-10-09] MEDS: HYDROXYZINE HYDROCHLORIDE 25 MG TAB PO SCH (09:12)
[2021-10-09] MEDS: LEVOFLOXACIN 500 MG/D5W PREMIX 100 ML IV SCH (09:13)
--- NOTE | 2021-10-09 10:00 | NUR ---
PT C/O NAUSEA- GIVEN ZOFRAN, WILL CONTINUE TO MONITOR
[2021-10-09] MEDS ORDERED: LEVO-315 PO (10:19)
[2021-10-09] MEDS ORDERED: [UNRECOGNIZED DRUG - CODE] PO (10:19)
[2021-10-09] MEDS ORDERED: LISI-487 PO (10:20)
[2021-10-09] MEDS ORDERED: HYDR2TAB6 PO (10:20)
[2021-10-09 10:31] LABS: BASOPHILS % (AUTO) 0.1 % (0.0-2.0); EOSINOPHILS % (AUTO) 0.1 % (0.0-4.0); HEMATOCRIT 48.1 % (36-52); HEMOGLOBIN 15.6 g/dL (12.0-18.0); LYMPHOCYTES # (AUTO) 3.1 K/uL (2.0-11.5); LYMPHOCYTES % (AUTO) 18.7 % (20.5-51.1); MEAN CORPUSCULAR HEMOGLOBIN 29 pg (27-31); MEAN CORPUSCULAR HGB CONC 33 g/dL (33-37); MEAN CORPUSCULAR VOLUME 88.7 fL (80-94); MONOCYTES # (AUTO) 1.2 K/uL (0.8-1.0); MONOCYTES % (AUTO) 7.4 % (1.7-9.3); NEUTROPHILS # (AUTO) 12.2 K/uL (1.8-7.7); NEUTROPHILS % (AUTO) 73.7 % (42.2-75.2); PLATELET COUNT (AUTO) 397 K/uL (140-450); RED BLOOD CELL COUNT(AUTO) 5.43 MIL/uL (4.20-6.10); RED CELL DISTRIBUTION WIDTH 16.1 % (11.6-13.7); WHITE BLOOD COUNT (AUTO) 16.5 K/uL (4.8-10.8)
[2021-10-09 10:44] LABS: ANION GAP 13.2 (8-16); CARBON DIOXIDE 30.1 mmol/L (21-32); CREATININE 1.2 mg/dL (0.6-1.3); POTASSIUM 4.3 mmol/L (3.5-5.1)
[2021-10-09 10:49] LABS: MAGNESIUM 2.1 mg/dL (1.8-2.4); PHOSPHORUS 3.9 mg/dL (2.5-4.9)
--- NOTE | 2021-10-09 11:30 | NUR ---
PT STATED HE IS NO LONGER NAUSEOUS BUT C/O LOWER BACK PAIN, GIVEN MEDICATION, NO ACUTE DISTRESS, PENDING RIDE FOR DISCHARGE
[2021-10-09] MEDS: MUPIROCIN CA NASAL 2% 1GM TUBE NS SCH (12:14)
[2021-10-09] MEDS: CHLORHEXADINE GLUC 2% CLOTH TP SCH (12:14)
--- NOTE | 2021-10-09 13:05 | NUR ---
MULTIPLE ATTEMPTS TO SEE PATIENT FOR PHYSICAL THERAPY TREATMENT HOWEVER PATIENT CONTINUES WITH NAUSEA ALTHOUGH GIVEN MEDICATION IN THE A.M. ; RN AWARE. WILL FOLLOW UP IF APPROPRIATE.
--- NOTE | 2021-10-09 13:17 | NUR ---
PT STATED WILL BE HERE AROUND 230 FOR DISCHARGE, IV REMOVED, EDUCATION PROVIDED, QUESTIONS ANSWERED, NO ACUTE DISTRESS, SAFETY MEASURES MAINTAINED, PT FREE FROM INJURY AND STABLE FOR DC HOME
--- NOTE | 2021-10-09 14:23 | NUR ---
AT BEDSIDE, PT CHANGING, VSS, NO ACUTE DISTRESS, PT FREE FROM INJURY AND STABLE FOR DC HOME
[2021-10-09 14:24] VITALS: BP 134/82
== END 2021-10-09 14:36 | disposition home or self-care (01) | DRG 871 ==
LOC: MED 20:22 → MTU 10-06 00:14 → MMU 10-06 20:32
PROVIDERS: ADMIT General Practice; ATTEND General Practice
DX: A41.9 Sepsis, unspecified organism (principal); J18.9 Pneumonia, unspecified organism; J44.0 Chronic obstructive pulmonary disease with (acute) lower respiratory infection; Z68.42 Body mass index [BMI] 45.0-49.9, adult; J44.1 Chronic obstructive pulmonary disease with (acute) exacerbation; E66.01 Morbid (severe) obesity due to excess calories; Z20.822 Contact with and (suspected) exposure to COVID-19; I25.10 Atherosclerotic heart disease of native coronary artery without angina pectoris; Z96.653 Presence of artificial knee joint, bilateral; Z96.643 Presence of artificial hip joint, bilateral; N40.0 Benign prostatic hyperplasia without lower urinary tract symptoms; E78.5 Hyperlipidemia, unspecified; M54.9 Dorsalgia, unspecified; G47.33 Obstructive sleep apnea (adult) (pediatric); I10 Essential (primary) hypertension; I25.2 Old myocardial infarction; Z95.818 Presence of other cardiac implants and grafts; Z88.8 Allergy status to other drugs, medicaments and biological substances; Z79.82 Long term (current) use of aspirin; Z79.899 Other long term (current) drug therapy; R06.03 Acute respiratory distress
CPT/HCPCS: 36415; 71045; 80048; 80053; 83036; 83605; 83690; 83735; 83880; 84100; 84443; 84484; 85025; 85379; 87040; 87081; 93005; 93970; 96361; 96365; 96366; 96375; 96376; 97116; 97163-GP; 97530; 99291; J0696; J1170; J1956; J2270; J2405; J2920; J2930; Q0092

== ENCOUNTER 2021-11-29 12:45 | Emergency (ER) | payer OTHER ==
[~2021-11-29] VITALS: Ht 182.9 cm; Wt 158.8 kg
[~2021-11-29 12:45] MED LIST changes: +ATA25 PO; -CARI350T PO; -CHLO118S2 TP; +HYDR-1098 PO; -HYDR-5080 PO; +HYDR2TAB6 PO; -IBUP-2213 PO; -LEVO750T51 PO; +LISI-487 PO; -MUPI2CRE22 NS; +OXYC5TAB4 PO; +PANT40EC56 PO; -PRED20TA5 PO
[2021-11-29 12:48] VITALS: BP 157/120
--- NOTE | 2021-11-29 14:00 | NUR ---
66 Y/O MALE C/O LOW BACK PAIN X 2 DAYS. PAIN DESCRIBED 9/10, SHARP. PT STATES HE HAD A PROCEDURE DONE 2 DAYS AGO WHERE HE HAD "SHOTS FOR PAIN ON MY BACK". PT WITH BACK INJURY 26 YEARS AGO AND 11 BACK SURGERIES SINCE. PT DENIES URINARY SYMPTOMS. NORCO LAST TAKEN 5 HOURS AGO. PMH: HTN, STENT PLACEMENT NKA
[2021-11-29] MEDS ORDERED: MORPHINE SULFATE 10 MG/ML VIAL IM ONE (15:15)
[2021-11-29] MEDS ORDERED: KETOROLAC 30 MG/ML VIAL IM ONE (15:15)
--- NOTE | 2021-11-29 15:38 | NUR ---
XR AT PT BEDSIDE
--- NOTE | 2021-11-29 15:47 | NUR ---
PT TAKEN TO CT VIA ADRIEL
[2021-11-29] MEDS ORDERED: MORPHINE SULFATE 4 MG/ML SYR IM ONE (16:40)
--- NOTE | 2021-11-29 16:50 | NUR ---
PRIOR TO GIVING PAIN MEDICATION PT NOTIFIED HE IS NOT ABLE TO DRIVE. PT STATED HE DID NOT DRIVE HIMSELF TO THE ER. PT STATED HIS WILL BE PICKING HIM UP.
[2021-11-29] MEDS ORDERED: oxyCODONE/APAP 5/325 MG 1 TAB TAB PO ONE (17:50)
[2021-11-29 18:28] VITALS: BP 157/120
== END 2021-11-29 18:30 | disposition home or self-care (01) ==
LOC: MED 12:45
DX: S60.211A Contusion of right wrist, initial encounter (principal); M54.50 Low back pain, unspecified; G89.29 Other chronic pain; I10 Essential (primary) hypertension; W01.0XXA Fall on same level from slipping, tripping and stumbling without subsequent striking against object, initial encounter; Y93.89 Activity, other specified; Y92.89 Other specified places as the place of occurrence of the external cause; Y99.8 Other external cause status
CPT/HCPCS: 72131; 73110; 96372; 99284; J1885; J2270

== ENCOUNTER 2021-12-20 14:01 | Inpatient (IN) | payer OTHER ==
[~2021-12-20] VITALS: Ht 182.9 cm; Wt 156.5 kg
[2021-12-20 14:07] VITALS: BP 140/96
--- NOTE | 2021-12-20 14:15 | NUR ---
PT W/C ASSISTED TO BED 8
[2021-12-20] MEDS ORDERED: FUROSEMIDE 40 MG/4 ML VIAL IVP ONE (14:20)
[2021-12-20 14:57] LABS: BASOPHILS # (AUTO) 0.1 K/uL (0.00-0.22); BASOPHILS % (AUTO) 0.8 % (0.0-2.0); EOSINOPHILS # (AUTO) 0.3 K/uL (0-0.4); EOSINOPHILS % (AUTO) 3.8 % (0.0-4.0); HEMATOCRIT 41.7 % (36-52); HEMOGLOBIN 13.8 g/dL (12.0-18.0); LYMPHOCYTES # (AUTO) 1.6 K/uL (2.0-11.5); LYMPHOCYTES % (AUTO) 19.8 % (20.5-51.1); MEAN CORPUSCULAR HEMOGLOBIN 29 pg (27-31); MEAN CORPUSCULAR HGB CONC 33 g/dL (33-37); MEAN CORPUSCULAR VOLUME 86.5 fL (80-94); MONOCYTES # (AUTO) 1.2 K/uL (0.8-1.0); MONOCYTES % (AUTO) 14.8 % (1.7-9.3); NEUTROPHILS # (AUTO) 4.9 K/uL (1.8-7.7); NEUTROPHILS % (AUTO) 60.8 % (42.2-75.2); PLATELET COUNT (AUTO) 300 K/uL (140-450); RED BLOOD CELL COUNT(AUTO) 4.82 MIL/uL (4.20-6.10); WHITE BLOOD COUNT (AUTO) 8.1 K/uL (4.8-10.8)
[2021-12-20 15:27] LABS: ALBUMIN 3.4 g/dL (3.4-5.0); ANION GAP 13.9 (8-16); CREATININE 1.1 mg/dL (0.6-1.3); POTASSIUM 3.9 mmol/L (3.5-5.1); TOTAL BILIRUBIN 0.5 mg/dL (0.0-1.0)
[2021-12-20] MEDS ORDERED: MORPHINE SULFATE 4 MG/ML SYR IVP ONE ×2 (15:45→17:55)
--- NOTE | 2021-12-20 15:50 | NUR ---
IVP PAIN MEDS GIVEN-NADR AT THIS TIME. PAIN POST IVP PAIN MEDS 3/10.
[2021-12-20] MEDS ORDERED: DOCUSATE SODIUM 100 MG GELCAP PO PRN (17:10)
[2021-12-20] MEDS ORDERED: ONDANSETRON 4 MG/2 ML VIAL IM/IVP PRN (17:10)
[2021-12-20] MEDS ORDERED: guaiFENesin DM 200/20 MG-10 ML 10 ML UDC PO PRN (17:10)
[2021-12-20] MEDS ORDERED: ACETAMINOPHEN 325 MG TAB PO PRN (17:10)
[2021-12-20] MEDS ORDERED: ZOLPIDEM 5 MG TAB PO PRN (17:10)
[2021-12-20] MEDS ORDERED: POTASSIUM CHLORIDE 10 MEQ TABER PO PRN (17:10)
[2021-12-20 17:41] LABS: PROTHROMBIN TIME 10.7 secs (10.8-13.4)
[2021-12-20] MEDS: carvediloL 6.25 MG TAB PO SCH (17:44)
[2021-12-20] MEDS: HYDROcodone/APAP 7.5/325 MG 1 TAB PO PRN (17:45)
[2021-12-20 17:58] LABS: CHOL/HDL RATIO 2.2 (1-4.5); FREE T4 (FREE THYROXINE) 0.96 ng/dL (0.76-1.46); MAGNESIUM 1.9 mg/dL (1.8-2.4); PHOSPHORUS 3.3 mg/dL (2.5-4.9); THYROID STIMULATING HORMONE 1.93 uIU/mL (0.34-3.74)
--- NOTE | 2021-12-20 19:20 | NUR ---
REPORT GIVEN TO KEENAN GREGORIO . TRANSFER OF CARE
--- NOTE | 2021-12-20 19:30 | NUR ---
REPORT TAKEN FROM LEATHA GREGORIO. PT IS ADMITED TO TELE 121B. CHF EXCERBATION . NKDA.
--- NOTE | 2021-12-20 19:30 | NUR ---
Peter hermosillo in [facility] - 12/21/21 at 0546 by TANYA REPORT TAKEN FROM LEATHA GREGORIO
--- NOTE | 2021-12-20 19:51 | NUR ---
PT TRANSPORTED TO 121B . BEDSIDE REPORT GIVEN TO MARTÍN OROZCO
--- NOTE | 2021-12-20 19:51 | NUR ---
Patient will be admitted to care of DR SCHAFER. Admited to TELE. Will go to [id number]. Belongings list completed. Report to KAVITA OROZCO.
[2021-12-20 20:00] VITALS: BP 134/64
--- NOTE | 2021-12-20 20:00 | NUR ---
RECEIVED PATIENT FROM ER NURSE, PATIENT IS ALERT AND ORIENTED X4, VITAL SIGN IS WITHIN THE NORMAL RANGE, CALL LIGHT IS WITHIN THE REACH , WILL CONTINUE TO MONITOR PATIENT.
--- NOTE | 2021-12-20 20:00 | NUR ---
Note torrione in EDM - 12/21/21 at 0543 by MNGAYE REPORT TAKEN FROM LEATHA GREGORIO . PT IS ADMITED TO TELE. BED STATUS OF 121B. TO GIVE BED SIDE REPORT TO MARTÍN OROZCO. PT HAS LOWER KRAIG EDEMA HAS 05/03. HX CHF . NKDA
[2021-12-20] MEDS: FUROSEMIDE 20 MG/2 ML VIAL IVP SCH (21:00)
[2021-12-20] MEDS: hydrALAZINE 25 MG TAB PO SCH (21:17)
[2021-12-20] MEDS: MORPHINE SULFATE 2 MG/ML SYR IVP PRN (22:55)
--- NOTE | 2021-12-20 23:00 | NUR ---
PATIENT IS COMPLAINING OF PAIN 9/10 AT HIS FEET AND BACK, MORPHINE 1MG PRN GIVEN PER DOCTOR ORDER, WILL RE ASSES PAIN LAVAL, CALL LIGHT IS WITHIN THE REACH, WILL CONTINUE TO MONITOR PATIENT.
[2021-12-21] VITALS: BP 155/89
--- NOTE | 2021-12-21 00:30 | NUR ---
PATIENT IS LYING ON BED, VITAL SIGN IS WITHIN THE NORMAL RANGE, ALL DUE MEDS ARE GIVEN PER DOCTOR ORDER, CALL LIGHT IS WITHIN THE REACH, SHANTILL CONTINUE TO MONITOR PATIENT.
[2021-12-21] MEDS: HYDROcodone/APAP 7.5/325 MG 1 TAB PO PRN ×2 (00:58→04:59)
--- NOTE | 2021-12-21 00:58 | NUR ---
PATIENT COMPLAINING OF PAIN /, NORCO 7.5/325MG PRN GIVEN PER DOCTOR ORDER, CALL LIGHT IS WITHIN THE REACH ,WILL CONTINUE TO MONITOR PATIENT
[2021-12-21 04:00] VITALS: BP 169/88
--- NOTE | 2021-12-21 04:10 | NUR ---
PATIENT BLOOD PRESSURE IS 169/88.PULSE: 84/M MASSAGE DOCTOR GILMAR ABOUT BLOOD PRESSER PRN MEDS WAITING FOR DOCTOR TO RESPOND , CALL LIGHT IS WITHIN THE REACH, CONTINUE TO MONITOR PATIENT.
[2021-12-21] MEDS ORDERED: hydrALAZINE 20 MG/ML VIAL IVP PRN (04:50)
--- NOTE | 2021-12-21 05:00 | NUR ---
PATIENT IS COMPLAINING OF BACK PAIN 01/31, NORCO 7.5/325MG PRN GIVEN PER DOCTOR ORDER, WILL RE ASSESS PATIENT ,CALL LIGHT IS WITHIN THE REACH,WILL CONTINUE TO MONITOR PATIENT.
--- NOTE | 2021-12-21 05:45 | NUR ---
PATIENT BLOOD PRESSURE IS 175/99. NV IS 84/M IV HYDRALAZINE 10MG/0.5 ML PRN GIVEN PER DOCTOR ORDER,WILL CONTINUE TO MONITOR BLOOD PRESSURE, CALL LIGHT IS WITHIN THE REACH,WILL CONTINUE TO MONITOR PATIENT.
[2021-12-21 06:13] LABS: BASOPHILS # (AUTO) 0.1 K/uL (0.00-0.22); BASOPHILS % (AUTO) 0.8 % (0.0-2.0); EOSINOPHILS # (AUTO) 0.3 K/uL (0-0.4); EOSINOPHILS % (AUTO) 3.7 % (0.0-4.0); HEMATOCRIT 42.9 % (36-52); HEMOGLOBIN 14.4 g/dL (12.0-18.0); LYMPHOCYTES # (AUTO) 2.2 K/uL (2.0-11.5); LYMPHOCYTES % (AUTO) 24.2 % (20.5-51.1); MEAN CORPUSCULAR HEMOGLOBIN 29 pg (27-31); MEAN CORPUSCULAR HGB CONC 34 g/dL (33-37); MEAN CORPUSCULAR VOLUME 86.6 fL (80-94); MONOCYTES # (AUTO) 1.4 K/uL (0.8-1.0); MONOCYTES % (AUTO) 15.5 % (1.7-9.3); NEUTROPHILS % (AUTO) 55.8 % (42.2-75.2); PLATELET COUNT (AUTO) 309 K/uL (140-450); RED BLOOD CELL COUNT(AUTO) 4.95 MIL/uL (4.20-6.10); RED CELL DISTRIBUTION WIDTH 15.2 % (11.6-13.7); WHITE BLOOD COUNT (AUTO) 8.9 K/uL (4.8-10.8)
[2021-12-21 06:33] LABS: ANION GAP 12.1 (8-16); CARBON DIOXIDE 28.7 mmol/L (21-32); CREATININE 1.1 mg/dL (0.6-1.3); POTASSIUM 3.8 mmol/L (3.5-5.1)
[2021-12-21] MEDS: MORPHINE SULFATE 2 MG/ML SYR IVP PRN ×4 (06:56→21:58)
--- NOTE | 2021-12-21 07:01 | NUR ---
PATIENT IS COMPLAINING OF PAIN IN BACK 05/03 , MORPHINE 1 MG/0.5 ML GIVEN PER DOCTOR ORDER, WILL REASSESS PAIN LAVAL, CALL LIGHT IS WITHIN THE REACH ,WILL CONTINUE TO MONITOR PATIENT.
--- NOTE | 2021-12-21 07:02 | NUR ---
PATIENT HAS BEEN SCREENED AND CATEGORIZED MODERATE NUTRITION RISK. PATIENT WILL BE SEEN WITHIN 3-5 DAYS OF ADMISSION. 12/23/21-12/25/21 MELI GOTTI MS, RDN
[2021-12-21 07:08] LABS: T4 (THYROXINE) 7.5 ug/dL (4.5-12.0)
--- NOTE | 2021-12-21 07:27 | NUR ---
GAVE REPORT TO NURSE JOHNNIE , PATIENT IS STABLE
--- NOTE | 2021-12-21 07:30 | NUR ---
RECEIVED PATIENT FROM CHEMICAL PREPARER NURSE FOR CONTINUITY OF CARE. PT IS AOX4, ABLE TO MAKE NEEDS KNOWN. RESPIRATIONS EVEN AND UNLABORED. ON ROOM AIR AND NO RESPIRATORY DISTRESS NOTED. SKIN IS WARM, DRY, AND INTACT. IV INTACT AND PATENT. SALINE LOCKED. PATIENT IS COMPLAINING OF LOWE BACK PAIN, MORPHINE WAS GIVEN EARLIER. PLAN OF CARE DISCUSSED. SAFETY PRECAUTIONS IN PLACE. CALL LIGHT WITHIN REACH. WILL CONTINUE TO MONITOR. Addendum: 12/22/21 at 1011 by Kaushal King RN RN BLE +3 PITTING EDEMA.
--- NOTE | 2021-12-21 07:44 | NUR ---
PATIENT REQUESTING TO LEAVE AGAINST MEDICAL ADVICE. EDUCATED PATIENT THE RISKS AND BENEFITS OF LEAVING AMA. PATIENT STILL INSIST ON LEAVING AMA. NOTIFIED MD AND IS AWARE.
--- NOTE | 2021-12-21 07:53 | NUR ---
PATIENT CHANGED HIS MIND AND WILL NOT BE LEAVING AMA. WILL WAIT FOR DR TO SEE HIM.
[2021-12-21 08:00] VITALS: BP 161/98
[2021-12-21] MEDS ORDERED: lisinopriL 20 MG TAB PO SCH (09:00)
--- NOTE | 2021-12-21 09:04 | NUR ---
PATIENT COMPLAINED OF 10/10 PAIN IN LOWER ABD AND LOWER BILATERAL EXTREMITIES. Addendum: 12/21/21 at 1920 by Kaushal King RN RN ADMINISTERED PRN PAIN MEDICATIONS MD ORDERED.
[2021-12-21] MEDS: PANTOPRAZOLE 40 MG TABEC PO SCH (09:07)
[2021-12-21] MEDS: TAMSULOSIN 0.4 MG CAP PO SCH (09:07)
[2021-12-21] MEDS: hydrALAZINE 25 MG TAB PO SCH ×2 (09:08→16:21)
[2021-12-21] MEDS: carvediloL 6.25 MG TAB PO SCH ×2 (09:08→20:29)
[2021-12-21] MEDS: ATORVASTATIN 80 MG TAB PO SCH (09:08)
[2021-12-21] MEDS: ASPIRIN 81 MG TAB.CHEW PO SCH (09:08)
[2021-12-21] MEDS: FUROSEMIDE 20 MG/2 ML VIAL IVP SCH ×2 (09:12→16:21)
[2021-12-21 12:00] VITALS: BP 109/55
--- NOTE | 2021-12-21 12:06 | NUR ---
PATIENT COMPLAINED OF 10/10 PAIN IN LOWER ABD AND LOWER BILATERAL EXTREMITIES. ADMINISTERED PRN PAIN MEDICATIONS MD ORDERED.
[2021-12-21 12:41] LABS: APPEARANCE,URINE CLEAR (CLEAR); BILIRUBIN,URINE NEGATIVE (NEGATIVE); BLOOD, URINE NEGATIVE (NEGATIVE); COLOR,URINE YELLOW (YELLOW); LEUKOCYTE ESTERASE ,URINE NEGATIVE (NEGATIVE); NITRITE, URINE NEGATIVE (NEGATIVE); UGLUCOSE NEGATIVE (NEGATIVE)
[2021-12-21 12:53] LABS: BARBITURATE, URINE NEGATIVE ng/ml (NEG <=200); BENZODIAZEPINE, URINE NEGATIVE ng/mL (NEG <=200); CANNABINOID, URINE NEGATIVE ng/mL (NEG <=50); COCAINE, URINE NEGATIVE ng/mL (NEG <=300); OPIATE, URINE POSITIVE ng/mL (NEG <=2000); PHENCYCLIDINE SCREEN,URINE NEGATIVE ng/mL (NEG <=25)
[2021-12-21 16:00] VITALS: BP 114/70
--- NOTE | 2021-12-21 16:21 | NUR ---
PATIENT COMPLAINED OF 10/10 PAIN IN LOWER ABD AND LOWER BILATERAL EXTREMITIES. ADMINISTERED PRN PAIN MEDICATIONS MD ORDERED.
--- NOTE | 2021-12-21 19:20 | NUR ---
ENDORSED TO PLOW MECHANIC NURSE FOR CONTINUITY OF CARE. PT IS STABLE
--- NOTE | 2021-12-21 19:30 | NUR ---
RECEIVED REPORT AT BEDSIDE FOR CONTINUITY OF CARE, PT SITTING IN BED, HE IS AOX4 AND ON ROOM AIR. PT HAS A 24G ON THE RIGHT WRIST WHICH IS INTACT AND ASYMPTOMATIC. PT IS NOTED WITH LOWER LEG EDEMA WHICH IS +1 ON THE DORSAL FEET AND NON PITTING FOR THE LOWER LEGS. PT ALSO C/O OF 7/ PAIN IN THE RIGHT HIP. ALL ASPIRATION AND FALLS PRECAUTIONS IN PLACE.
[2021-12-21 20:00] VITALS: BP 119/60
[2021-12-21] MEDS: HYDROmorphone 1 MG/ML AMP IVP PRN (20:18)
[2021-12-21] MEDS: lisinopriL 20 MG TAB PO SCH (20:30)
--- NOTE | 2021-12-21 20:30 | NUR ---
PT WAS GIVEN IVP DILAUDID FOR BREAKTHROUGH PAIN IN HIS RIGHT HIP. PT LUNGS CLEAR SLIGHTLY DIMINISHED. PT HAS NO C/O OF SOB, BUT HE SAYS HE GETS SOB WITH ACTIVITY. PT WAS GIVEN ORDERED COREG AND ZESTRIL WELL HEPARIN SQ. EDUCATION PROVIDED TO PT REGARDING PURPOSE OF MEDICATION, PT VERBALIZED UNDERSTANDING. PT V/S FOLLOWS: T 97.3 P 88 R 20 B/P 119/60 02 94% ON ROOM AIR. ALL ORDERED PRECAUTIONS IN PLACE.
--- NOTE | 2021-12-21 21:30 | NUR ---
ASSESSMENT DONE, LUNGS SOUNDS CLEAR BUT SLIGHTLY DIMINISHED. ABDOMEN SOFT AND ROUND. PT SAID HE HAD SOME RELIEF OF BREAKTHROUGH PAIN WITH THE DILAUDID. IV SITE FLUSHED PATENT. PLAIN OF CARE REVIEWED WITH PT WHOM VERBALIZED UNDERSTANDING. ALL ORDERED PRECAUTIONS IN PLACE.
--- NOTE | 2021-12-21 22:05 | NUR ---
PT AGAIN C/O OF SEVERE PAIN IN HIS RIGHT HIP 03/02, HE WAS GIVEN PRN IVP MORPHINE 3MG. ( 2 LONG VIALS WERE TO BE TAKEN OUT 1 WAS TAKEN OUT AND PARTIALLY WASTED O.5MLS WASTED WITH STEVIE GREGORIO. WENT BACK FOR THE 2ND VIAL OF MORPHINE) PT WAS GIVEN A TOTAL OF 3MG (1.5MLS) OF MORPHINE PER ORDERED. PT WAS GIVEN PILLOW TO ELEVATE BOTH OF HIS LOWER LEGS. REVIEWED PLAN OF CARE WITH PT PER REQUEST, AND ALL REQUESTED NEEDS WERE ATTENDEE BY STAFF AND ALL ORDERED PRECAUTIONS IN PLACE.
[2021-12-22] VITALS: BP 130/58
--- NOTE | 2021-12-22 00:30 | NUR ---
PT IN BED ASLEEP NO S/S OF PAIN OR DISTRESS NOTED. ALL ORDERED PRECAUTIONS IN PLACE.
[2021-12-22] MEDS: MORPHINE SULFATE 2 MG/ML SYR IVP PRN ×5 (02:09→22:38)
--- NOTE | 2021-12-22 02:21 | NUR ---
PT AWAKE WITH C/O SEVERE BACK PAIN 03/02 AND WAS GIVEN IVP/PRN MORPHINE. ALSO GIVEN REQUESTED BLANKETS FOR COMFORT. PT VOIDED ANOTHER 400MLS LIGHT LINDA URINE. ALL ORDERED PRECAUTIONS IN PLACE.
[2021-12-22 04:00] VITALS: BP 111/40
--- NOTE | 2021-12-22 04:30 | NUR ---
PT IN BED V/S FOLLOW: T 97.1 P 74 R 18 B/P 111/40 02 92% ON ROOM AIR. NO C/O VOICED AT THIS TIME. PT DECLINED AM CARE AT THIS TIME. ALL REQUESTED NEEDS ATTENDED BY STAFF. ALL ORDERED PRECAUTIONS IN PLACE.
[2021-12-22 05:54] LABS: ANION GAP 13.1 (8-16); CARBON DIOXIDE 27.5 mmol/L (21-32); CREATININE 1.2 mg/dL (0.6-1.3); POTASSIUM 3.6 mmol/L (3.5-5.1)
[2021-12-22] MEDS: HYDROmorphone 1 MG/ML AMP IVP PRN ×3 (05:59→20:22)
--- NOTE | 2021-12-22 06:10 | NUR ---
PT C/O OF SEVERE BREAK THROUGH PAIN AND WAS GIVEN DILAUDID IVP/PRN. PT VOIDED ANOTHER 200MLS OF URINE.
[2021-12-22 06:43] LABS: BASOPHILS % (AUTO) 0.6 % (0.0-2.0); EOSINOPHILS # (AUTO) 0.4 K/uL (0-0.4); EOSINOPHILS % (AUTO) 5.6 % (0.0-4.0); HEMATOCRIT 44.1 % (36-52); HEMOGLOBIN 14.6 g/dL (12.0-18.0); LYMPHOCYTES # (AUTO) 1.7 K/uL (2.0-11.5); LYMPHOCYTES % (AUTO) 24.7 % (20.5-51.1); MEAN CORPUSCULAR HEMOGLOBIN 29 pg (27-31); MEAN CORPUSCULAR HGB CONC 33 g/dL (33-37); MEAN CORPUSCULAR VOLUME 87.2 fL (80-94); MONOCYTES # (AUTO) 1.2 K/uL (0.8-1.0); NEUTROPHILS # (AUTO) 3.7 K/uL (1.8-7.7); NEUTROPHILS % (AUTO) 52.7 % (42.2-75.2); PLATELET COUNT (AUTO) 308 K/uL (140-450); RED BLOOD CELL COUNT(AUTO) 5.06 MIL/uL (4.20-6.10); RED CELL DISTRIBUTION WIDTH 15.2 % (11.6-13.7)
--- NOTE | 2021-12-22 07:30 | NUR ---
RECEIVED PATIENT FROM METAL TRIM ERECTOR NURSE FOR CONTINUITY OF CARE. PT IS AOX4, ABLE TO MAKE NEEDS KNOWN. RESPIRATIONS EVEN AND UNLABORED. ON ROOM AIR AND NO RESPIRATORY DISTRESS NOTED. SKIN IS WARM, DRY, AND INTACT. BLE +3 PITTING EDEMA. RIGHT WRIST 24 G IV INTACT AND PATENT. SALINE LOCKED. PATIENT IS COMPLAINING OF LOWER BACK PAIN, WILL MEDICATE WITH PRN PAIN MEDS PER MD ORDERED. PLAN OF CARE DISCUSSED. SAFETY PRECAUTIONS IN PLACE. CALL LIGHT WITHIN REACH. WILL CONTINUE TO MONITOR.
[2021-12-22 07:33] LABS: MONOCYTES % (AUTO) 16.4 % (1.7-9.3)
[2021-12-22 08:00] VITALS: BP 138/96
--- NOTE | 2021-12-22 08:56 | NUR ---
PATIENT COMPLAINED OF 8/10 PAIN IN LOWER ABD AND LOWER BILATERAL EXTREMITIES. ADMINISTERED PRN PAIN MEDICATIONS MD ORDERED.
[2021-12-22] MEDS: carvediloL 6.25 MG TAB PO SCH ×2 (08:59→22:37)
[2021-12-22] MEDS: hydrALAZINE 25 MG TAB PO SCH ×3 (08:59→16:55)
[2021-12-22] MEDS: FUROSEMIDE 20 MG/2 ML VIAL IVP SCH (08:59)
[2021-12-22] MEDS: ASPIRIN 81 MG TAB.CHEW PO SCH (08:59)
[2021-12-22] MEDS: ATORVASTATIN 80 MG TAB PO SCH (09:00)
[2021-12-22] MEDS: PANTOPRAZOLE 40 MG TABEC PO SCH (09:00)
[2021-12-22] MEDS: lisinopriL 20 MG TAB PO SCH ×2 (09:00→22:36)
[2021-12-22] MEDS: TAMSULOSIN 0.4 MG CAP PO SCH (09:00)
[2021-12-22 12:00] VITALS: BP_SYST 114; BP_SYST 129; BP_DIAS 63; BP_DIAS 66
--- NOTE | 2021-12-22 12:49 | NUR ---
PATIENT COMPLAINED OF 8/10 PAIN IN LOWER ABD AND LOWER BILATERAL EXTREMITIES. ADMINISTERED PRN PAIN MEDICATIONS MD ORDERED.
[2021-12-22] MEDS: CHLORHEXADINE GLUC 2% CLOTH TP SCH (14:21)
[2021-12-22] MEDS: MUPIROCIN CA NASAL 2% 1GM TUBE NS SCH (14:21)
--- NOTE | 2021-12-22 14:21 | NUR ---
PATIENT COMPLAINED OF 10/10 PAIN IN LOWER ABD AND LOWER BILATERAL EXTREMITIES. ADMINISTERED PRN PAIN MEDICATIONS MD ORDERED.
[2021-12-22 16:00] VITALS: BP_SYST 124; BP_SYST 135; BP_DIAS 70; BP_DIAS 81
[2021-12-22] MEDS: FUROSEMIDE 40 MG TAB PO SCH (16:55)
--- NOTE | 2021-12-22 19:11 | NUR ---
ENDORSED TO RETAIL COVERAGE MERCHANDISER LEAD NURSE FOR CONTINUITY OF CARE. PT IS STABLE.
--- NOTE | 2021-12-22 19:30 | NUR ---
RECEIVED REPORT FROM RN DAYSHIFT NURSE AT BEDSIDE FOR CONTINUITY OF CARE.PT LYING IN BED HE IS AOX4 ON ROOM AIR. IV SITE ON R WRIST 24 G WHICH IS SALINE LOCKED. PT IS NOTED WITH NON PITTING EDEMA OF DORSAL FOOT AND LEFT DORSAL FOOT HAS +2 PITTING EDEMA. PT VOIDED 400MLS OF LIGHT YELLOW URINE,.
[2021-12-22 20:00] VITALS: BP 115/56
--- NOTE | 2021-12-22 20:22 | NUR ---
PT COMPLAINING OF BACK PAIN AND KRAIG LEG PAIN, MEDICATED WITH DILAUDID IVP PRN ORDERED, MONITORED CLOSELY.
--- NOTE | 2021-12-22 20:30 | NUR ---
PT C/O OF SEVERE PAIN AND WAS GIVEN IVP DILAUDID FOR SEVERE BREAKTHROUGH PAIN. V/S FOLLOWS: T 97.6 P 95 R 20 B/P 115/56 02 94% ON ROOM AIR. ALL ORDERED PRECAUTIONS IN PLACE.
--- NOTE | 2021-12-22 21:00 | NUR ---
PT WAS GIVEN ORDERED COREG; ZESTRIL AND HEPARIN SQ FOR DVT PREVENTION. EDUCATION REGARDING MEDICATION EXPLAINED AT BEDSIDE, PT VERBALIZED UNDERSTANDING. ALL ORDERED PRECAUTIONS IN PLACE.
--- NOTE | 2021-12-22 22:38 | NUR ---
PT GIVEN MORPHINE FOR C/O OF SEVERE PAIN.
[2021-12-23] VITALS: BP 143/73
--- NOTE | 2021-12-23 00:30 | NUR ---
PT IN BED V/S FOLLOWS: T 97.1 P 91 R 20 B/P 143/73 02 92% ON ROOM AIR. ALL ORDERED PRECAUTIONS IN PLACE.
[2021-12-23] MEDS: HYDROmorphone 1 MG/ML AMP IVP PRN (02:24)
--- NOTE | 2021-12-23 02:30 | NUR ---
PT C/O OF SEVERE PAIN AND WAS GIVEN MORPHINE FOR SEVERE BREAK THROUGH PAIN . ALL ORDERED PRECAUTIONS IN PLACE.
[2021-12-23 04:00] VITALS: BP 107/52
[2021-12-23] MEDS: HYDROcodone/APAP 7.5/325 MG 1 TAB PO PRN (04:57)
--- NOTE | 2021-12-23 05:06 | NUR ---
PT IN BED, LABS AT BEDSIDE. V/S FOLLOWS; T 97.7 P 84 R 20 B/P 107/52 02 95% ON ROM AIR. PT REQUESTED AND WAS GIVEN NORCO 7.5/325MG TABLET FOR MODERATE GENERALIZED PAIN. ALL ORDERED PRECAUTIONS IN PLACE.
[2021-12-23 05:17] LABS: ANION GAP 12.8 (8-16); CARBON DIOXIDE 28.1 mmol/L (21-32); CREATININE 1.5 mg/dL (0.6-1.3); POTASSIUM 3.9 mmol/L (3.5-5.1)
[2021-12-23 05:34] LABS: BASOPHILS % (AUTO) 0.5 % (0.0-2.0); EOSINOPHILS # (AUTO) 0.5 K/uL (0-0.4); EOSINOPHILS % (AUTO) 6.3 % (0.0-4.0); HEMATOCRIT 42.3 % (36-52); HEMOGLOBIN 14.1 g/dL (12.0-18.0); LYMPHOCYTES # (AUTO) 2.1 K/uL (2.0-11.5); LYMPHOCYTES % (AUTO) 26.3 % (20.5-51.1); MEAN CORPUSCULAR HEMOGLOBIN 29 pg (27-31); MEAN CORPUSCULAR HGB CONC 33 g/dL (33-37); MEAN CORPUSCULAR VOLUME 87.5 fL (80-94); MONOCYTES # (AUTO) 1.3 K/uL (0.8-1.0); MONOCYTES % (AUTO) 16.1 % (1.7-9.3); NEUTROPHILS # (AUTO) 4.1 K/uL (1.8-7.7); NEUTROPHILS % (AUTO) 50.8 % (42.2-75.2); PLATELET COUNT (AUTO) 328 K/uL (140-450); RED BLOOD CELL COUNT(AUTO) 4.84 MIL/uL (4.20-6.10); RED CELL DISTRIBUTION WIDTH 15.3 % (11.6-13.7); WHITE BLOOD COUNT (AUTO) 8.1 K/uL (4.8-10.8)
--- NOTE | 2021-12-23 07:25 | NUR ---
RECEIVED REPORT FROM POLICE CLERK NURSE FOR CONTINUITY OF CARE. PT IS AOX4, ABLE TO VERBALIZE NEEDS TO STAFF, ABLE TO FOLLOW COMMANDS. RESPIRATIONS EVEN AND UNLABORED, ON ROOM AIR. NO SIGNS OF DISTRESS NOTED. ABD IS NONTENDER, NONDISTENDED. PT IS CONTINENT OF BOWEL AND BLADDER. UTILIZES URINAL AT BEDSIDE. SKIN IS WARM, DRY, AND INTACT. BLE +3 PITTING EDEMA. RIGHT WRIST 24 G IV INTACT AND PATENT. SALINE LOCKED. CALL LIGHT WITHIN REACH. ALL SAFETY MEASURES IN PLACE. WILL CONTINUE TO MONITOR.
[2021-12-23 08:00] VITALS: BP 171/102
[2021-12-23] MEDS: ASPIRIN 81 MG TAB.CHEW PO SCH (09:02)
[2021-12-23] MEDS: hydrALAZINE 25 MG TAB PO SCH ×2 (09:02→13:11)
[2021-12-23] MEDS: carvediloL 6.25 MG TAB PO SCH (09:03)
[2021-12-23] MEDS: TAMSULOSIN 0.4 MG CAP PO SCH (09:03)
[2021-12-23] MEDS: ATORVASTATIN 80 MG TAB PO SCH (09:04)
[2021-12-23] MEDS: FUROSEMIDE 40 MG TAB PO SCH (09:04)
[2021-12-23] MEDS: PANTOPRAZOLE 40 MG TABEC PO SCH (09:07)
[2021-12-23] MEDS: lisinopriL 20 MG TAB PO SCH (09:07)
--- NOTE | 2021-12-23 09:10 | NUR ---
ADMINISTERED ALL SCHEDULED MEDICATIONS. EDUCATED PT ON MEDS ADMINISTERED. PT VERBALIZED UNDERSTANDING. WILL CONTINUE TO MONITOR.
[2021-12-23] MEDS: MORPHINE SULFATE 2 MG/ML SYR IVP PRN (10:34)
--- NOTE | 2021-12-23 10:34 | NUR ---
PT COMPLAINING OF PAIN. STATES PAIN IS 8/10. MEDICATED. WILL CONTINUE TO MONITOR.
[2021-12-23] MEDS ORDERED: MORPHINE SULFATE 4 MG/ML SYR IVP PRN (10:55)
[2021-12-23] MEDS ORDERED: Z-GUARD PASTE TP ONE (11:26)
[2021-12-23 12:00] VITALS: BP 115/71
--- NOTE | 2021-12-23 14:06 | NUR ---
PT CALLED AND ASKED WHAT TIME HE WILL BE DISCHARGED. INFORMED PT THAT WE ARE AWAITING DISCHARGE ORDER FROM DR. DAVIDSON. REACHED OUT TO DR DAVIDSON WELL. AWAITING RESPONSE. WILL CONTINUE TO MONITOR.
--- NOTE | 2021-12-23 14:27 | NUR ---
DID ROUNDS ON PT. PT IN BED AT THIS TIME, RESTING. RESPIRATIONS ARE EVEN AND UNLABORED ON ROOM AIR. NO COMPLAINTS OF PAIN OR DISCOMFORT AT THIS TIME. WILL CONTINUE TO MONITOR.
[2021-12-23] MEDS: MUPIROCIN CA NASAL 2% 1GM TUBE NS SCH (14:57)
[2021-12-23] MEDS: CHLORHEXADINE GLUC 2% CLOTH TP SCH (14:57)
--- NOTE | 2021-12-23 14:57 | NUR ---
DC PLANNING: THE PATIENT PRESENTED FROM HOME WITH C/O SOB AND BLE SWELLING. H/O CHF, COPD, HTN, CARDIAC STENT, BACK SURGERY, HERNIA REPAIR, KNEE SURGERY, HIP SURGERY. PATIENT GIVEN LASIX IV X 1 IN ED, CARDIOLOGY CONSULT ORDERED, PATIENT REMAINS ON LASIX. CM SPOKE WITH THE PATIENT AT BEDSIDE AND CONFIRMED HIS ADDRESS AND PHONE NUMBER. THE PATIENT LIVES WITH HIS AND SON IN A SINGLE STORY HOUSE AND IS INDEPENDENT WITH DAILY ACTIVITIES. HE USES A FWW TO AMBULATE AND HAS OTHER DME OF AN ELECTRIC [employer], SHOWER BENCH AND 3 IN 1 COMMODE. HE SEES HIS PCP REGULARLY WELL A WEB ANALYST AND CLAY THROWER. HIS DRIVES HIM TO APPOINTMENTS BUT IS CURRENTLY IN [place]. HIS COUSIN IS STAYING WITH HIM THIS WEEK AND WILL BE ABLE TO PROVIDE TRANSPORT HOME. THE PATIENT WAS SET UP WITH [facility] IN SEPTEMBER OF THIS YEAR BUT THEY NEVER SAW THE PATIENT HE DIDN'T ANSWER CALLS AND WAS NOT HOME WHEN THEY ATTEMPTED TO SEE HIM. THE PATIENT STATES THAT HE IS ON SERVICE WITH [facility] BUT DOESN'T REMEMBER THE NAME OF THE AGENCY AND WILL GIVE CM THIS INFORMATION AT A LATER TIME. THE PATIENT WAS SEEN BY Stephan AND IS ABLE TO AMBULATE 100 FT USING A FWW. DC PLAN IS FOR THE PATIENT TO RETURN HOME WHEN CLINICALLY STABLE. CM WILL FOLLOW FOR NEEDS. Addendum: 12/23/21 at 1505 by Jannie Alston CM Amended: Links added.
--- NOTE | 2021-12-23 15:12 | NUR ---
PT CALLED AGAIN ASKING WHEN HE IS GOING TO BE DISCHARGED. REACHED OUT TO DR DAVIDSON AGAIN. WILL CONTINUE TO MONITOR.
[2021-12-23] MEDS ORDERED: FURO40TA9 PO (15:36)
[2021-12-23] MEDS ORDERED: MUPI2CRE22 NS (15:36)
[2021-12-23] MEDS ORDERED: PANT40EC56 PO (15:36)
[2021-12-23] MEDS ORDERED: HYDR-4420 PO (15:36)
[2021-12-23] MEDS ORDERED: LISI20TA29 PO (15:36)
[2021-12-23] MEDS ORDERED: DOCU-299 PO (15:36)
[2021-12-23] MEDS ORDERED: CARV6.252 PO (15:36)
[2021-12-23 16:00] VITALS: BP 124/50
--- NOTE | 2021-12-23 16:25 | NUR ---
WENT OVER DISCHARGE PAPERWORK WITH PT. ANSWERED ALL QUESTIONS. PT SIGNED ALL PAPERWORK. PT STATED HE CALLED HIS RIDE AND HIS COUSIN WILL BE PICKING HIM UP AROUND 1700. WILL CONTINUE TO MONITOR.
--- NOTE | 2021-12-23 17:10 | NUR ---
PT DISCHARGED HOME WITH FAMILY. PT LEFT VIA PRIVATE VEHICLE. ALL BELONGINGS TAKEN UPON DISCHARGE. WRIST BAND REMOVED. IV REMOVED, IV CATHETER INTACT.
== END 2021-12-23 17:52 | disposition home or self-care (01) | DRG 291 ==
LOC: MED 14:01 → MTU 16:41
PROVIDERS: ADMIT Family Medicine; ATTEND Family Medicine
DX: I13.0 Hypertensive heart and chronic kidney disease with heart failure and stage 1 through stage 4 chronic kidney disease, or unspecified chronic kidney disease (principal); I50.33 Acute on chronic diastolic (congestive) heart failure; Z68.42 Body mass index [BMI] 45.0-49.9, adult; N18.9 Chronic kidney disease, unspecified; G47.33 Obstructive sleep apnea (adult) (pediatric); I25.10 Atherosclerotic heart disease of native coronary artery without angina pectoris; Z20.822 Contact with and (suspected) exposure to COVID-19; Z96.653 Presence of artificial knee joint, bilateral; J44.9 Chronic obstructive pulmonary disease, unspecified; E66.01 Morbid (severe) obesity due to excess calories; E78.2 Mixed hyperlipidemia; I25.2 Old myocardial infarction; Z95.5 Presence of coronary angioplasty implant and graft; Z79.899 Other long term (current) drug therapy; Z79.82 Long term (current) use of aspirin
CPT/HCPCS: 36415; 71045; 80048; 80053; 80305; 81003; 82150; 83036; 83690; 83735; 83880; 84100; 84436; 84439; 84443; 84479; 84484; 85025; 85610; 85730; 87081; 93005; 93925; 93970; 96374; 96375; 97163-GP; 97530; 99285; J0360; J1170; J1644; J1940; J2270; Q0092

== ENCOUNTER 2022-02-13 16:38 | Inpatient (IN) | payer OTHER ==
[~2022-02-13] VITALS: Ht 182.9 cm; Wt 153.3 kg
[~2022-02-13 16:38] MED LIST changes: +CARV6.252 PO; +DOCU-299 PO; +FURO40TA9 PO; +HYDR-4420 PO; +LISI20TA29 PO; +MUPI2CRE22 NS
[2022-02-13 16:39] VITALS: BP 162/91
--- NOTE | 2022-02-13 16:41 | NUR ---
PT WHEELCHAIR ASSISTED TO ROOM 8
--- NOTE | 2022-02-13 17:15 | NUR ---
66YO MALE C/O 10/10 SHARP LOWER BACK PAIN. PT HAS HX OF CHRONIC PAIN BUT HAD RECENT FALL , LANDING "SIDEWAYS", 2 DAYS AGO CAUSING INCREASE IN PAIN. PT DENIES HIT TO HEAD OR LOC AT TIME OF FALL. NO VISIBLE INJURY TO BACK. PT UNABLE TO AMBULATE AT THIS TIME. PT STATES NORMALLY AMBULATING USING WALKER. PT HAS RX NORCO 10/325MG AND STATES TAKING 2 TODAY ,HAD NO RELIEF. PT REPORTS DYSURIA ALONG WITH URGENCY AND DRIBBLING. PT NOTES "STINK" ODOR IN URINE AND "BROWN" COLORING. PT AAOX4, RESPIRATIONS EVEN AND UNLABORED. HOB POSITIONED PER PT COMFORT , BED AT LOWEST POSITION , BED RAILS UPX2. NKA PMH: HTN, STENT, CHRONIC BACK PAIN
[2022-02-13] MEDS ORDERED: MORPHINE SULFATE 4 MG/ML SYR IM ONE (17:20)
[2022-02-13 18:07] LABS: BASOPHILS % (AUTO) 0.6 % (0.0-2.0); EOSINOPHILS # (AUTO) 0.2 K/uL (0-0.4); EOSINOPHILS % (AUTO) 3.1 % (0.0-4.0); HEMOGLOBIN 14.8 g/dL (12.0-18.0); LYMPHOCYTES # (AUTO) 1.8 K/uL (2.0-11.5); LYMPHOCYTES % (AUTO) 23.8 % (20.5-51.1); MEAN CORPUSCULAR HEMOGLOBIN 29 pg (27-31); MEAN CORPUSCULAR HGB CONC 33 g/dL (33-37); MEAN CORPUSCULAR VOLUME 86.6 fL (80-94); MONOCYTES # (AUTO) 0.9 K/uL (0.8-1.0); NEUTROPHILS # (AUTO) 4.5 K/uL (1.8-7.7); NEUTROPHILS % (AUTO) 60.5 % (42.2-75.2); PLATELET COUNT (AUTO) 303 K/uL (140-450); RED CELL DISTRIBUTION WIDTH 14.4 % (11.6-13.7); WHITE BLOOD COUNT (AUTO) 7.4 K/uL (4.8-10.8)
[2022-02-13 18:21] LABS: ANION GAP 9.9 (8-16); CARBON DIOXIDE 30.7 mmol/L (21-32); POTASSIUM 4.6 mmol/L (3.5-5.1)
--- NOTE | 2022-02-13 18:48 | NUR ---
PT TAKEN TO CT VIA ADRIEL
--- NOTE | 2022-02-13 19:04 | NUR ---
PT BROUGHT BACK FROM CT VIA ADRIEL
[2022-02-13] MEDS ORDERED: MORPHINE SULFATE 4 MG/ML SYR IVP ONE (19:10)
--- NOTE | 2022-02-13 19:19 | NUR ---
REPORT GIVEN TO RYAN GREGORIO. ALL QUESTIONS ANSWERED. TRANSFER OF CARE AT THIS TIME
--- NOTE | 2022-02-13 19:33 | NUR ---
PROVIDED PT URINAL AND WATER AND ICE
--- NOTE | 2022-02-13 19:49 | NUR ---
AURE COLLECTED AND SENT TO LAB
[2022-02-13] MEDS ORDERED: MORPHINE SULFATE 4 MG/ML SYR IVP PRN ×3 (19:50→20:00)
[2022-02-13] MEDS ORDERED: MORPHINE SULFATE 4 MG/ML SYR IVP STA (20:13)
[2022-02-13] MEDS ORDERED: DULO60EC1 PO (20:19)
[2022-02-13] MEDS ORDERED: VITD400 PO (20:48)
[2022-02-13] MEDS ORDERED: POTA10TA70 PO (20:48)
[2022-02-13] MEDS ORDERED: PRAS10TA8 PO (20:48)
[2022-02-13] MEDS ORDERED: PANT40EC PO (20:48)
[2022-02-13] MEDS ORDERED: HYDR-5080 PO (20:54)
--- NOTE | 2022-02-13 20:57 | NUR ---
Patient will be admitted to care of . Admited to TELEMETRY. Will go to room 124. Belongings list completed. Report to SKY.
[2022-02-13 21:05] VITALS: BP 126/89
--- NOTE | 2022-02-13 21:13 | NUR ---
GET THE REPORT FROM ER NURSE RYAN, PATIENT IS ALERT ORIENTED X4, CALL LIGHT IS WITHIN THE REACH,WILL CONTINUE TO MONITOR PATIENT.
--- NOTE | 2022-02-13 22:30 | NUR ---
The patient's care was reviewed and supervised by Ynes Angelo RN.
--- NOTE | 2022-02-13 22:34 | NUR ---
PATIENT IS LYING ON BED, PATIENT IS COMPLAINING OF IN BACK 10,MORPHINE 4MG IV STAT IS GIVEN PER DOCTOR ORDER, VITAL SIGN IS WITHIN THE NORMAL RANGE, CALL LIGHT IS WITHIN THE REACH,WILL CONTINUE TO MONITOR PATIENT.
[2022-02-13] MEDS ORDERED: VANCOMYCIN PER PHARMACY MC PRN (22:40)
[2022-02-13] MEDS ORDERED: VANCOMYCIN 1GM/DEXT 5% PREMIX 400 ML IV SCH (23:00)
[2022-02-13] MEDS ORDERED: ZOLPIDEM 5 MG TAB PO PRN (23:25)
--- NOTE | 2022-02-13 23:53 | NUR ---
PATIENT IS COMPLAINING OF INSOMNIA , GAVE AMBIEN 5 MG PO PRN PER DOCTOR ORDER, CALL LIGHT IS WITHIN THE REACH,WILL CONTINUE TO MONITOR PATIENT.
[2022-02-14] VITALS: BP 141/89
--- NOTE | 2022-02-14 01:02 | NUR ---
PATIENT IS LYING ON BED, NO ANY COMPLAIN OF PAIN OR SHORTNESS OF BREATH AT THIS TIME, VITAL SIGN IS WITHIN THE NORMAL RANGE, , ALL SCHEDULE MEDICATION IS GIVEN PER DOCTOR ORDER, CALL LIGHT IS WITHIN THE REACH,WILL CONTINUE TO MONITOR PATIENT
[2022-02-14] MEDS: MORPHINE SULFATE 4 MG/ML SYR IVP PRN ×7 (02:56→22:39)
--- NOTE | 2022-02-14 02:58 | NUR ---
PATIENT IS LYING ON BED, PATIENT IS COMPLAINING OF PAIN IN HIS BACK 8/10, MEDICATED WITH MORPHINE 4MG IV PRN PER DOCTOR ORDER , VITAL SIGN IS WITHIN THE NORMAL RANGE, CALL LIGHT IS WITHIN THE REACH,WILL CONTINUE TO MONITOR PATIENT.
--- NOTE | 2022-02-14 03:37 | NUR ---
PATIENT IS COMPLAINING OF ITCHING AND RASHES ON HAND AND CHEST, AFTER GETTING AMBIEN 5MG , MASSAGE DOCTOR STUART , WAITING FOR DOCTOR TO RESPONSE, NOTIFIED IN PHARM[facility] , VITAL SIGN IS WITHIN THE NORMAL RANGE, CALL LIGHT IS WITHIN THE REACH, WILL CONTINUE TO MONITOR PATIENT.
[2022-02-14 04:00] VITALS: BP 150/52
--- NOTE | 2022-02-14 04:23 | NUR ---
PATIENT IS LYING ON BED, VITAL SIGN IS WITHIN THE NORMAL RANGE, NO ANY COMPLAIN OF PAIN OR SHORTNESS OF BREATH AT THIS TIME, CALL LIGHT IS WITHIN THE REACH,WILL CONTINUE TO MONITOR PATIENT.
[2022-02-14] MEDS ORDERED: diphenhydrAMINE 50 MG/ML VIAL IVP SCH ×2 (05:25→12:00)
[2022-02-14 05:37] LABS: BASOPHILS # (AUTO) 0.1 K/uL (0.00-0.22); BASOPHILS % (AUTO) 0.8 % (0.0-2.0); EOSINOPHILS # (AUTO) 0.3 K/uL (0-0.4); EOSINOPHILS % (AUTO) 3.3 % (0.0-4.0); HEMATOCRIT 42.2 % (36-52); LYMPHOCYTES # (AUTO) 2.5 K/uL (2.0-11.5); LYMPHOCYTES % (AUTO) 26.5 % (20.5-51.1); MEAN CORPUSCULAR HEMOGLOBIN 31 pg (27-31); MEAN CORPUSCULAR HGB CONC 36 g/dL (33-37); MEAN CORPUSCULAR VOLUME 86.9 fL (80-94); MONOCYTES % (AUTO) 10.6 % (1.7-9.3); NEUTROPHILS # (AUTO) 5.6 K/uL (1.8-7.7); NEUTROPHILS % (AUTO) 58.8 % (42.2-75.2); PLATELET COUNT (AUTO) 403 K/uL (140-450); RED BLOOD CELL COUNT(AUTO) 4.86 MIL/uL (4.20-6.10); RED CELL DISTRIBUTION WIDTH 14.4 % (11.6-13.7); WHITE BLOOD COUNT (AUTO) 9.6 K/uL (4.8-10.8)
[2022-02-14 05:44] LABS: ANION GAP 8.4 (8-16); CARBON DIOXIDE 30.4 mmol/L (21-32); POTASSIUM 3.8 mmol/L (3.5-5.1)
--- NOTE | 2022-02-14 05:50 | NUR ---
DOCTOR STUART REPLIED BACK WITH BENADRYL 50 MG IV X1 , MEDICATION IS GIVEN PER DOCTOR ORDER, VITAL SIGN IS WITHIN THE NORMAL RANGE, CALL LIGHT IS WITHIN THE REACH,WILL CONTINUE TO MONITOR PATIENT.
--- NOTE | 2022-02-14 06:03 | NUR ---
PATIENT IS LYING ON BED, PATIENT IS COMPLAINING OF PAIN IN HIS BACK 04/02, MEDICATED WITH MORPHINE 4MG IV PRN PER DOCTOR ORDER , VITAL SIGN IS WITHIN THE NORMAL RANGE, CALL LIGHT IS WITHIN THE REACH,WILL CONTINUE TO MONITOR PATIENT
--- NOTE | 2022-02-14 06:08 | NUR ---
PATIENT IS LYING ON BED , VITAL SIGN IS WITHIN THE NORMAL RANGE, ALL SCHEDULE MEDICATION IS GIVEN PER DOCTOR ORDER,CALL LIGHT IS WITHIN THE REACH,WILL CONTINUE TO MONITOR PATIENT
--- NOTE | 2022-02-14 07:29 | NUR ---
GAVE THE REPORT TO MORNING NURSE EVIE FOR CONTINUOS OF CARE, PATIENT IS STABLE
--- NOTE | 2022-02-14 07:30 | NUR ---
RECEIVED REPORT FROM WINDSHIELD INSTALLER. PT IN BED WITH HOB ELEVATED. AOX4, ABLE TO MAKE NEEDS KNOWN. NO SOB ON ROOM AIR. NO C/O PAIN AT THIS TIME. WITH IV ON RFA 22G SALINE LOCK. NON AMBULATORY D/T BACK PAIN. SKIN INTACT. CALL LIGHT WITHIN REACH. POC DISCUSSED
[2022-02-14 08:00] VITALS: BP 137/92
[2022-02-14] MEDS ORDERED: MORPHINE SULFATE 2 MG/ML SYR IVP PRN (08:30)
--- NOTE | 2022-02-14 08:54 | NUR ---
PATIENT HAS BEEN SCREENED AND CATEGORIZED LOW NUTRITION RISK. PATIENT WILL BE SEEN WITHIN 7 DAYS OF ADMISSION. 02/20/[address]
--- NOTE | 2022-02-14 09:00 | NUR ---
C/O SEVERE BACK PAIN 05/03, MORPHINE 4MG GIVEN ORDERED
--- NOTE | 2022-02-14 11:30 | NUR ---
C/O B ARM REDNESS AND ITCHING. NOTIFIED DR DAVIDSON. ORDERED BENADRYL 25MG IVP ONCE
[2022-02-14] MEDS ORDERED: MAG SULF 2000 MG/WATER PREMIX 50 ML IV PRN (11:35)
[2022-02-14] MEDS ORDERED: ONDANSETRON 4 MG/2 ML VIAL IM/IVP PRN (11:35)
[2022-02-14] MEDS ORDERED: ACETAMINOPHEN 325 MG TAB PO PRN (11:35)
[2022-02-14] MEDS ORDERED: POTASSIUM CHLORIDE 10 MEQ TABER PO PRN (11:35)
[2022-02-14] MEDS ORDERED: DOCUSATE SODIUM 100 MG GELCAP PO PRN ×2 (11:35)
--- NOTE | 2022-02-14 12:00 | NUR ---
C/O SEVERE BACK PAIN 05/03, MORPHINE 4MG GIVEN ORDERED
[2022-02-14] MEDS: hydrALAZINE 25 MG TAB PO SCH ×2 (13:06→17:00)
--- NOTE | 2022-02-14 13:20 | NUR ---
DUE MEDS GIVEN TOLERATED WELL
[2022-02-14 15:33] LABS: PROTHROMBIN TIME 10.7 secs (10.8-13.4)
[2022-02-14 15:44] LABS: THYROID STIMULATING HORMONE 4.02 uIU/mL (0.34-3.74)
[2022-02-14 16:00] VITALS: BP 125/76
[2022-02-14 16:14] LABS: BARBITURATE, URINE NEGATIVE ng/ml (NEG <=200); BENZODIAZEPINE, URINE NEGATIVE ng/mL (NEG <=200); CANNABINOID, URINE NEGATIVE ng/mL (NEG <=50); COCAINE, URINE NEGATIVE ng/mL (NEG <=300); OPIATE, URINE POSITIVE ng/mL (NEG <=2000); PHENCYCLIDINE SCREEN,URINE NEGATIVE ng/mL (NEG <=25)
[2022-02-14 16:29] LABS: APPEARANCE,URINE CLEAR (CLEAR); BILIRUBIN,URINE NEGATIVE (NEGATIVE); BLOOD, URINE NEGATIVE (NEGATIVE); COLOR,URINE YELLOW (YELLOW); LEUKOCYTE ESTERASE ,URINE NEGATIVE (NEGATIVE); NITRITE, URINE NEGATIVE (NEGATIVE); UGLUCOSE NEGATIVE (NEGATIVE)
--- NOTE | 2022-02-14 16:47 | NUR ---
PT ASLEEP IN BED, FLACC 0, NO APPARENT DISTRESS
[2022-02-14] MEDS: FUROSEMIDE 40 MG TAB PO SCH (17:00)
--- NOTE | 2022-02-14 19:45 | NUR ---
GET THE REPORT FROM MORNING NURSE EVIE, PATIENT IS LYING ON BED,PATIENT IS ALERT ORIENTED X4, CALL LIGHT IS WITHIN THE REACH,WILL CONTINUE TO MONITOR PATIENT.
[2022-02-14 20:00] VITALS: BP 129/72
[2022-02-14] MEDS: diphenhydrAMINE 50 MG/ML VIAL IVP PRN (20:05)
--- NOTE | 2022-02-14 20:30 | NUR ---
PATIENT IS LYING ON BED, VITAL SIGN IS WITHIN THE NORMAL RANGE,NO ANY COMPLAIN OF PAIN OR SHORTENS OF BREATH AT THIS TIME, ALL SCHEDULE MEDICATION IS GIVEN PER DOCTOR ORDER, CALL LIGHT IS WITHIN THE REACH, WILL CONTINUE TO MONITOR PATIENT.
[2022-02-14] MEDS: carvediloL 6.25 MG TAB PO SCH (21:18)
--- NOTE | 2022-02-14 22:40 | NUR ---
PATIENT IS LYING ON BED, PATIENT IS COMPLAINING OF BACK PAIN 8/10, MEDICATED WITH MORPHINE 4 MG IV PRN FOR PAIN PER DOCTOR ORDER, VITAL SIGN IS WITHIN THE NORMAL RANGE, CALL LIGHT IS WITHIN THE REACH,WILL CONTINUE TO MONITOR PATIENT.
--- NOTE | 2022-02-15 00:31 | NUR ---
PATIENT IS LYING ON BED, NO ANY COMPLAIN OF PAIN OR SHORTNESS OF BREATH AT THIS TIME, CALL LIGHT IS WITHIN THE REACH, WILL CONTINUE TO MONITOR PATIENT
[2022-02-15] MEDS: MORPHINE SULFATE 4 MG/ML SYR IVP PRN ×6 (02:28→21:28)
--- NOTE | 2022-02-15 02:28 | NUR ---
PATIENT IS LYING ON BED, VITAL SIGN IS WITHIN THE NORMAL RANGE, PATIENT IS COMPLAINING OF PAIN 8/10 IN HIS BACK MORPHINE 4MG IV PRN IS GIVEN PER DOCTOR ORDER, CALL LIGHT IS WITHIN THE REACH,WILL CONTINUE TO MONITOR PATIENT.
[2022-02-15 04:00] VITALS: BP 116/78
[2022-02-15] MEDS: diphenhydrAMINE 50 MG/ML VIAL IVP PRN ×5 (04:07→21:25)
--- NOTE | 2022-02-15 04:14 | NUR ---
PATIENT IS LYING ON BED, VITAL SIGN IS WITHIN THE NORMAL RANGE, PATIENT IS COMPLAINING OF ITCHING ,BANADYNE 25 MG IV PRN IS GIVEN PER DOCTOR ORDER, CALL LIGHT IS WITHIN THE REACH,WILL CONTINUE TO MONITOR PATIENT.
--- NOTE | 2022-02-15 04:22 | NUR ---
PATIENT IS LYING ON BED, VITAL SIGN IS WITHIN THE NORMAL RANGE, NO ANY COMPLAIN OF PAIN OR SHORTNESS OF BREATH AT THIS TIME, ALL SCHEDULE MEDICATION IS GIVEN PER DOCTOR ORDER, CALL LIGHT IS WITHIN THE REACH,WILL CONTINUE TO MONITOR PATIENT.
[2022-02-15 06:04] LABS: ANION GAP 11.2 (8-16); CARBON DIOXIDE 27.5 mmol/L (21-32); POTASSIUM 3.7 mmol/L (3.5-5.1)
[2022-02-15 06:09] LABS: PHOSPHORUS 4.7 mg/dL (2.5-4.9)
[2022-02-15 06:10] LABS: BASOPHILS % (AUTO) 0.6 % (0.0-2.0); EOSINOPHILS # (AUTO) 0.2 K/uL (0-0.4); EOSINOPHILS % (AUTO) 3.1 % (0.0-4.0); HEMATOCRIT 44.1 % (36-52); HEMOGLOBIN 14.8 g/dL (12.0-18.0); LYMPHOCYTES % (AUTO) 25.3 % (20.5-51.1); MEAN CORPUSCULAR HEMOGLOBIN 29 pg (27-31); MEAN CORPUSCULAR HGB CONC 34 g/dL (33-37); MEAN CORPUSCULAR VOLUME 86.4 fL (80-94); MONOCYTES % (AUTO) 13.4 % (1.7-9.3); NEUTROPHILS # (AUTO) 4.5 K/uL (1.8-7.7); NEUTROPHILS % (AUTO) 57.6 % (42.2-75.2); PLATELET COUNT (AUTO) 314 K/uL (140-450); RED BLOOD CELL COUNT(AUTO) 5.11 MIL/uL (4.20-6.10); RED CELL DISTRIBUTION WIDTH 14.3 % (11.6-13.7); WHITE BLOOD COUNT (AUTO) 7.8 K/uL (4.8-10.8)
--- NOTE | 2022-02-15 06:14 | NUR ---
PATIENT IS LYING ON BED, NO ANY COMPLAIN OF PAIN OR SHORTNESS OF BREATH AT THIS TIME, CALL LIGHT IS WITHIN THE REACH, WILL CONTINUE TO MONITOR PATIENT.
--- NOTE | 2022-02-15 07:18 | NUR ---
GAVE THE REPORT TO MORNING NURSE YESSENIA FOR CONTINUOS OF CARE, PATIENT IS STABLE
[2022-02-15 07:30] LABS: CHOL/HDL RATIO 3.3 (1-4.5)
[2022-02-15 08:00] VITALS: BP 142/76
--- NOTE | 2022-02-15 08:00 | NUR ---
RECEIVED REPORT FROM NIGHTSHIFT RN. PT A/O X4. ABLE TO MAKE NEEDS KNOWN. NO SOB OR RESPIRATORY DISTRESS. ON RA. HOB ELEVATED. IV TO SL. URINAL AT BEDSIDE. NEEDS ALL MET AT THIS TIME. SAFETY MEASURES IN PLACE. WILL CONTINUE TO MONITOR CLOSELY.
[2022-02-15 08:07] LABS: T4 (THYROXINE) 6.4 ug/dL (4.5-12.0)
[2022-02-15] MEDS: carvediloL 6.25 MG TAB PO SCH ×2 (09:07→21:23)
[2022-02-15] MEDS: ASPIRIN 81 MG TAB.CHEW PO SCH (09:11)
[2022-02-15] MEDS: DULoxetine 30 MG CAPDR PO SCH (09:11)
[2022-02-15] MEDS: TAMSULOSIN 0.4 MG CAP PO SCH (09:17)
[2022-02-15] MEDS: FUROSEMIDE 40 MG TAB PO SCH ×2 (09:17→17:38)
[2022-02-15] MEDS: hydrALAZINE 25 MG TAB PO SCH ×3 (09:17→17:39)
[2022-02-15] MEDS: ATORVASTATIN 80 MG TAB PO SCH (09:18)
[2022-02-15] MEDS: CHOLECALCIFEROL 1,000 IU TAB PO SCH (09:18)
[2022-02-15] MEDS: PANTOPRAZOLE 40 MG TABEC PO SCH (09:18)
--- NOTE | 2022-02-15 12:50 | NUR ---
SPOKE WITH DR. LLANES REGARDING PT COMPLAINT ITCHINESS WITH MORPHINE IVP. NEW ORDERS INPUTTED. SEE NEW ORDERS.
[2022-02-15] MEDS ORDERED: HYDROcodone/APAP 7.5/325 MG 1 TAB PO PRN (12:55)
[2022-02-15 16:00] VITALS: BP 129/75
--- NOTE | 2022-02-15 18:15 | NUR ---
PT WATCHING TV AND HAVING DINNER AT BEDSIDE. HOB ELEVATED. PT IN NO DISTRESS. PRN PAIN MED AND BENADRYL GIVEN. NEEDS ALL MET AT THIS TIME. ITEMS WITHIN REACH. PT STABLE.
--- NOTE | 2022-02-15 19:26 | NUR ---
REPORT GIVEN TO CHERY HUNTLEY RN FOR CONTINUITY OF CARE.
[2022-02-16] VITALS: BP 128/79
[2022-02-16] MEDS: diphenhydrAMINE 50 MG/ML VIAL IVP PRN ×4 (00:55→11:20)
[2022-02-16] MEDS: MORPHINE SULFATE 4 MG/ML SYR IVP PRN ×4 (00:55→11:20)
[2022-02-16] MEDS ORDERED: CHLORHEXADINE GLUC 2% CLOTH TP SCH (03:00)
[2022-02-16] MEDS ORDERED: MUPIROCIN CA NASAL 2% 1GM TUBE NS SCH (03:00)
--- NOTE | 2022-02-16 07:30 | NUR ---
RECEIVED REPORT FROM DATABASE COORDINATOR. PT IN BED WITH HOB ELEVATED. AOX4, ABLE TO MAKE NEEDS KNOWN. NO SOB ON ROOM AIR. WITH C/O SHARP BACK PAIN 05/03. WILL MEDICATE. WITH IV ON GRACIE 24G SALINE LOCK. BED REST D/T BACK PAIN. SKIN INTACT. CALL LIGHT WITHIN REACH. POC DISCUSSED
[2022-02-16 07:54] LABS: BASOPHILS # (AUTO) 0.1 K/uL (0.00-0.22); BASOPHILS % (AUTO) 0.9 % (0.0-2.0); EOSINOPHILS # (AUTO) 0.4 K/uL (0-0.4); EOSINOPHILS % (AUTO) 4.5 % (0.0-4.0); HEMATOCRIT 44.1 % (36-52); HEMOGLOBIN 14.5 g/dL (12.0-18.0); LYMPHOCYTES # (AUTO) 1.9 K/uL (2.0-11.5); LYMPHOCYTES % (AUTO) 25.1 % (20.5-51.1); MEAN CORPUSCULAR HEMOGLOBIN 29 pg (27-31); MEAN CORPUSCULAR HGB CONC 33 g/dL (33-37); MEAN CORPUSCULAR VOLUME 86.7 fL (80-94); MONOCYTES # (AUTO) 1.1 K/uL (0.8-1.0); MONOCYTES % (AUTO) 13.7 % (1.7-9.3); NEUTROPHILS # (AUTO) 4.3 K/uL (1.8-7.7); NEUTROPHILS % (AUTO) 55.8 % (42.2-75.2); PLATELET COUNT (AUTO) 307 K/uL (140-450); RED BLOOD CELL COUNT(AUTO) 5.08 MIL/uL (4.20-6.10); RED CELL DISTRIBUTION WIDTH 14.3 % (11.6-13.7); WHITE BLOOD COUNT (AUTO) 7.8 K/uL (4.8-10.8)
[2022-02-16 08:00] VITALS: BP 159/78
[2022-02-16] MEDS: hydrALAZINE 25 MG TAB PO SCH (08:04)
[2022-02-16] MEDS: ASPIRIN 81 MG TAB.CHEW PO SCH (08:04)
[2022-02-16] MEDS: carvediloL 6.25 MG TAB PO SCH (08:05)
[2022-02-16] MEDS: PANTOPRAZOLE 40 MG TABEC PO SCH (08:05)
[2022-02-16] MEDS: CHOLECALCIFEROL 1,000 IU TAB PO SCH (08:05)
[2022-02-16] MEDS: TAMSULOSIN 0.4 MG CAP PO SCH (08:05)
[2022-02-16] MEDS: FUROSEMIDE 40 MG TAB PO SCH (08:05)
[2022-02-16] MEDS: DULoxetine 30 MG CAPDR PO SCH (08:05)
[2022-02-16] MEDS: ATORVASTATIN 80 MG TAB PO SCH (08:05)
[2022-02-16 08:29] LABS: ANION GAP 10.5 (8-16); CARBON DIOXIDE 30.3 mmol/L (21-32); CREATININE 1.1 mg/dL (0.6-1.3); POTASSIUM 3.8 mmol/L (3.5-5.1)
[2022-02-16 08:33] LABS: MAGNESIUM 1.9 mg/dL (1.8-2.4); PHOSPHORUS 4.8 mg/dL (2.5-4.9)
--- NOTE | 2022-02-16 09:20 | NUR ---
DUE MEDS GIVEN
--- NOTE | 2022-02-16 11:00 | NUR ---
DISCHARGE INSTRUCTIONS GIVEN. VERBALIZED UNDERSTANDING
--- NOTE | 2022-02-16 12:40 | NUR ---
DISCHARGED, PICKED UP BY IN FRONT LOBBY
== END 2022-02-16 12:37 | disposition home or self-care (01) | DRG 552 ==
LOC: MED 16:38 → MTU 19:51 → MED 20:06 → MTU 20:34
DX: M47.815 Spondylosis without myelopathy or radiculopathy, thoracolumbar region (principal); E87.1 Hypo-osmolality and hyponatremia; Z68.42 Body mass index [BMI] 45.0-49.9, adult; J44.9 Chronic obstructive pulmonary disease, unspecified; I10 Essential (primary) hypertension; K59.00 Constipation, unspecified; G62.9 Polyneuropathy, unspecified; K21.9 Gastro-esophageal reflux disease without esophagitis; I11.0 Hypertensive heart disease with heart failure; I50.9 Heart failure, unspecified; E55.9 Vitamin D deficiency, unspecified; E66.9 Obesity, unspecified; I25.10 Atherosclerotic heart disease of native coronary artery without angina pectoris; Z20.822 Contact with and (suspected) exposure to COVID-19; Z79.82 Long term (current) use of aspirin
CPT/HCPCS: 36415; 36556; 72132; 80048; 80305; 81003; 82150; 83036; 83690; 83735; 83880; 84100; 84134; 84436; 84443; 85025; 85610; 85730; 87081; 96372; 96374; 96376; 97116; 97163-GP; 99285; J1200; J1644; J2270; Q9967

== ENCOUNTER 2022-03-07 19:54 | Emergency (ER) | payer OTHER ==
[~2022-03-07] VITALS: Ht 182.9 cm; Wt 158.8 kg
[~2022-03-07 19:54] MED LIST changes: -CARV6.25 PO; +DULO60EC1 PO; -DULO60EC75 PO; -FURO-570 PO; -HYDR-1098 PO; +HYDR-5080 PO; -HYDR2TAB6 PO; -LISI-487 PO; -LISI20TA29 PO; -MUPI2CRE22 NS; -OXYC5TAB4 PO; +PANT40EC PO; -PANT40EC56 PO; +POTA10TA70 PO; +PRAS10TA8 PO; +VITD400 PO
[2022-03-07 19:55] VITALS: BP 121/63
--- NOTE | 2022-03-07 19:55 | NUR ---
to bed via wheelchair
--- NOTE | 2022-03-07 20:24 | NUR ---
DR. GARZA AT BEDSIDE.
[2022-03-07] MEDS ORDERED: KETOROLAC 30 MG/ML VIAL IVP ONE (20:40)
[2022-03-07] MEDS ORDERED: MORPHINE SULFATE 10 MG/ML VIAL IVP ONE (20:40)
--- NOTE | 2022-03-07 20:43 | NUR ---
LAB AT BED SIDE
--- NOTE | 2022-03-07 20:49 | NUR ---
66 YO M BIBS W C/O LOW BACK PAIN X 3 DAYS DUE TO METAL RODS PLACED IN BACK. PMH: HTN, CHOL SX: 1994 TO 2021 SEVERAL BACK SX L1 TO L11 METAL RODS, STENT
[2022-03-07 20:54] LABS: BASOPHILS # (AUTO) 0.1 K/uL (0.00-0.22); BASOPHILS % (AUTO) 0.9 % (0.0-2.0); EOSINOPHILS # (AUTO) 0.3 K/uL (0-0.4); EOSINOPHILS % (AUTO) 3.4 % (0.0-4.0); HEMATOCRIT 45.3 % (36-52); HEMOGLOBIN 14.7 g/dL (12.0-18.0); LYMPHOCYTES # (AUTO) 2.2 K/uL (2.0-11.5); LYMPHOCYTES % (AUTO) 28.8 % (20.5-51.1); MEAN CORPUSCULAR HEMOGLOBIN 29 pg (27-31); MEAN CORPUSCULAR HGB CONC 33 g/dL (33-37); MEAN CORPUSCULAR VOLUME 87.6 fL (80-94); MONOCYTES % (AUTO) 13.4 % (1.7-9.3); NEUTROPHILS # (AUTO) 4.2 K/uL (1.8-7.7); NEUTROPHILS % (AUTO) 53.5 % (42.2-75.2); PLATELET COUNT (AUTO) 325 K/uL (140-450); RED BLOOD CELL COUNT(AUTO) 5.17 MIL/uL (4.20-6.10); RED CELL DISTRIBUTION WIDTH 14.7 % (11.6-13.7); WHITE BLOOD COUNT (AUTO) 7.8 K/uL (4.8-10.8)
--- NOTE | 2022-03-07 21:05 | NUR ---
ATTEMPTED IV INSERTION x2 UNSUCCESSFUL. PRIMARY RN MADE AWARE.
[2022-03-07 21:21] LABS: ALBUMIN 3.5 g/dL (3.4-5.0); ANION GAP 12.5 (8-16); CARBON DIOXIDE 28.6 mmol/L (21-32); CREATININE 1.1 mg/dL (0.6-1.3); POTASSIUM 4.1 mmol/L (3.5-5.1); TOTAL BILIRUBIN 0.2 mg/dL (0.0-1.0)
[2022-03-07] MEDS ORDERED: MORPHINE SULFATE 10 MG/ML VIAL IM ONE (21:25)
[2022-03-07] MEDS ORDERED: KETOROLAC 60 MG/2 ML VIAL IM ONE (21:25)
[2022-03-07] MEDS ORDERED: IBUP-2213 PO (22:47)
[2022-03-07 23:57] VITALS: BP 140/84
[2022-03-08] MEDS ORDERED: LIDOCAINE 5% 1 EA PATCH TP SCH (09:00)
== END 2022-03-07 23:59 | disposition home or self-care (01) ==
LOC: MED 19:54
DX: M54.40 Lumbago with sciatica, unspecified side (principal); I10 Essential (primary) hypertension; I25.10 Atherosclerotic heart disease of native coronary artery without angina pectoris; I50.9 Heart failure, unspecified; J44.9 Chronic obstructive pulmonary disease, unspecified; Z88.5 Allergy status to narcotic agent; Z98.890 Other specified postprocedural states
CPT/HCPCS: 36415; 80053; 85025; 96372; 96374; 99284; J1885; J2270

== ENCOUNTER 2022-03-16 19:51 | Emergency (ER) | payer OTHER ==
[~2022-03-16 19:51] MED LIST changes: +IBUP-2213 PO
--- NOTE | 2022-03-16 20:24 | NUR ---
PER IZAIAH, PT LEFT LOBBY WITHOUT BEING SEEN
--- NOTE | 2022-03-16 20:24 | NUR ---
Patient LWBS before Triage.
== END 2022-03-16 20:24 | disposition left against medical advice (07) ==
LOC: MED 19:51
DX: M54.9 Dorsalgia, unspecified (principal); R53.1 Weakness; Z53.21 Procedure and treatment not carried out due to patient leaving prior to being seen by health care provider

== ENCOUNTER 2022-03-19 16:57 | Emergency (ER) | payer OTHER ==
[~2022-03-19] VITALS: Ht 182.9 cm; Wt 165.6 kg
[2022-03-19 17:06] VITALS: BP 131/84
--- NOTE | 2022-03-19 17:14 | NUR ---
PT W/C ASSISTED TO BED 8.
--- NOTE | 2022-03-19 17:29 | NUR ---
66 Y/O M BIB SELF C/O LOWER BACK PAIN 9/10 X 4 DAYS. TOOK NORCO AT 1330 PM TODAY WITH NO RELIFE. NKA PMH: HTN, 2 STENTS , BACK SURGERY T10-T1 LAST AUGUST, BILATERAL KNEE AND HIP SURGERY
--- NOTE | 2022-03-19 17:30 | NUR ---
DR BROWN AT BEDSIDE.
[2022-03-19] MEDS ORDERED: KETOROLAC 60 MG/2 ML VIAL IM ONE (17:35)
[2022-03-19] MEDS ORDERED: MORPHINE SULFATE 4 MG/ML SYR IM ONE (17:35)
--- NOTE | 2022-03-19 18:17 | NUR ---
66/M PRESENTS TO ED WITH C/O LOWER BACK PAIN RADIATING DOWN RIGHT LEG X4 DAYS. PATIENT DENIES RECENT INJURY OR TRAUMA, STATES HAVING BACK SURGERY IN AUGUST AND REPORTS PAIN HAS BEEN INTERMITTENT SINCE BUT WORSENING THIS WEEK. PATIENT REPORTS TAKING NORCO FOR PAIN BUT STATES MILD RELIEF.
[2022-03-19] MEDS ORDERED: HYDROmorphone PFS 2 MG/ML SYR IM ONE (18:40)
[2022-03-19] MEDS ORDERED: CYCLOBENZAPRINE 10 MG TAB PO ONE (18:40)
--- NOTE | 2022-03-19 19:19 | NUR ---
GAVE REPORT TO KIRK GREGORIO.
--- NOTE | 2022-03-19 19:31 | NUR ---
PATIENT SITTING IN BED ON THE PHONE. PER PATIENT SHOULD BE HERE TO PICK HIM UP IN 15MIN. BED LOW AND LOCKED. KRAIG SIDE RAILS UP FOR SAFETY. ALL NEEDS MET.
[2022-03-19 19:42] VITALS: BP 160/76
--- NOTE | 2022-03-19 19:42 | NUR ---
Patient discharged with v/s stable. Written and verbal after care instructions given and explained. Patient verbalized understanding. Wheel Chair Assisted with steady gait. All questions addressed prior to discharge. Advised to follow up with PMD.
== END 2022-03-19 19:42 | disposition home or self-care (01) ==
LOC: MED 16:57
DX: S39.012A Strain of muscle, fascia and tendon of lower back, initial encounter (principal); I50.9 Heart failure, unspecified; J44.9 Chronic obstructive pulmonary disease, unspecified; I10 Essential (primary) hypertension; Z98.890 Other specified postprocedural states; Z88.8 Allergy status to other drugs, medicaments and biological substances; X58.XXXA Exposure to other specified factors, initial encounter; Y93.89 Activity, other specified; Y92.89 Other specified places as the place of occurrence of the external cause; Y99.8 Other external cause status
CPT/HCPCS: 96372; 99284; J1170; J1885; J2270

== ENCOUNTER 2022-03-21 17:27 | Inpatient (IN) | payer OTHER ==
[~2022-03-21] VITALS: Ht 182.9 cm; Wt 163.3 kg
[2022-03-21 17:35] VITALS: BP 150/96
--- NOTE | 2022-03-21 19:16 | NUR ---
RECIEVED REPORT FROM ERNESTO MURCIA
[2022-03-21] MEDS ORDERED: NACL 0.9% 1,000 ML IV ONE (19:45)
[2022-03-21] MEDS ORDERED: HYDROmorphone PFS 2 MG/ML SYR IVP ONE (19:45)
--- NOTE | 2022-03-21 20:50 | NUR ---
COVID/AURE SWAB COLLECTED AND WALKED TO LAB
[2022-03-21 21:11] LABS: ALBUMIN 2.2 g/dL (3.4-5.0); ANION GAP 11.7 (8-16); CARBON DIOXIDE 20.6 mmol/L (21-32); CREATININE 0.6 mg/dL (0.6-1.3); POTASSIUM 4.3 mmol/L (3.5-5.1); TOTAL BILIRUBIN 0.2 mg/dL (0.0-1.0)
[2022-03-21 21:16] LABS: BASOPHILS # (AUTO) 0.1 K/uL (0.00-0.22); BASOPHILS % (AUTO) 0.6 % (0.0-2.0); EOSINOPHILS # (AUTO) 0.1 K/uL (0-0.4); HEMATOCRIT 39.6 % (36-52); HEMOGLOBIN 12.7 g/dL (12.0-18.0); LYMPHOCYTES # (AUTO) 1.9 K/uL (2.0-11.5); LYMPHOCYTES % (AUTO) 15.8 % (20.5-51.1); MEAN CORPUSCULAR HEMOGLOBIN 28 pg (27-31); MEAN CORPUSCULAR HGB CONC 32 g/dL (33-37); MEAN CORPUSCULAR VOLUME 87.6 fL (80-94); MONOCYTES # (AUTO) 1.2 K/uL (0.8-1.0); MONOCYTES % (AUTO) 9.9 % (1.7-9.3); NEUTROPHILS # (AUTO) 8.9 K/uL (1.8-7.7); NEUTROPHILS % (AUTO) 72.7 % (42.2-75.2); PLATELET COUNT (AUTO) 331 K/uL (140-450); RED BLOOD CELL COUNT(AUTO) 4.52 MIL/uL (4.20-6.10); RED CELL DISTRIBUTION WIDTH 14.3 % (11.6-13.7); WHITE BLOOD COUNT (AUTO) 12.3 K/uL (4.8-10.8)
[2022-03-21] MEDS ORDERED: MORPHINE SULFATE 4 MG/ML SYR IVP ONE (21:25)
[2022-03-21] MEDS ORDERED: SODIUM PHOS / POTASSIUM PHOS 1 PKT PDR PO PRN (21:30)
[2022-03-21] MEDS ORDERED: MAGNESIUM OXIDE 400 MG TAB PO PRN (21:30)
[2022-03-21] MEDS ORDERED: DOCUSATE SODIUM 100 MG GELCAP PO PRN (21:30)
[2022-03-21] MEDS ORDERED: ACETAMINOPHEN 325 MG TAB PO PRN (21:30)
[2022-03-21] MEDS ORDERED: HYDROcodone/APAP 5/325 MG 1 TAB TAB PO PRN (21:30)
[2022-03-21] MEDS ORDERED: POTASSIUM CHLORIDE 10 MEQ TABER PO PRN (21:30)
--- NOTE | 2022-03-22 | NUR ---
pt occasionally awakes to complain about obi. pt states pain management is helping but not completely.
[2022-03-22] MEDS: MORPHINE SULFATE 2 MG/ML SYR IVP PRN ×5 (01:52→18:48)
--- NOTE | 2022-03-22 02:00 | NUR ---
Patient appears to be resting comfortably in bed. Vital Signs within normal limits. Respirations even and unlabored.
--- NOTE | 2022-03-22 05:22 | NUR ---
BAKER BENCH AT BEDSIDE
--- NOTE | 2022-03-22 07:15 | NUR ---
REPORT RECIEVED FROM DIANNE OROZCO
--- NOTE | 2022-03-22 07:19 | NUR ---
GAVE TRANSFER OF CARE REPORT TO JG HUSSEIN
--- NOTE | 2022-03-22 08:13 | NUR ---
66YR OLD MALE C/O ABD PAIN X5DAYS. PT [facility] UNTIL BED AVAIL DX OF CHOLEDOCHOLITHIASIS. PT IS NOP EXCEPT FOR MEDS. 18G IV CATH L AC. PT IS A&OX4. HOB ELEVATED. RESP EVEN AND UNLABORED. BED AT LOWEST POSITION
[2022-03-22] MEDS: LIDOCAINE 5% 1 EA PATCH TP SCH (09:00)
[2022-03-22] MEDS ORDERED: VITAMIN D 400 IU TAB PO SCH (09:00)
[2022-03-22] MEDS: DOCUSATE SODIUM 100 MG GELCAP PO SCH ×2 (09:18→22:06)
[2022-03-22] MEDS: ASPIRIN 81 MG TAB.CHEW PO SCH (09:18)
[2022-03-22] MEDS: carvediloL 6.25 MG TAB PO SCH ×2 (09:19→22:05)
[2022-03-22] MEDS: DULoxetine 30 MG CAPDR PO SCH (09:19)
[2022-03-22] MEDS: HYDROXYZINE HYDROCHLORIDE 25 MG TAB PO SCH ×2 (09:20→20:29)
[2022-03-22] MEDS: TAMSULOSIN 0.4 MG CAP PO SCH (09:21)
[2022-03-22] MEDS: VITAMIN D 400 IU TAB PO SCH (09:22)
[2022-03-22] MEDS: PANTOPRAZOLE 40 MG TABEC PO SCH (09:23)
[2022-03-22] MEDS: hydrALAZINE 25 MG TAB PO SCH ×3 (09:35→16:56)
[2022-03-22] MEDS: ATORVASTATIN 80 MG TAB PO SCH (09:35)
--- NOTE | 2022-03-22 09:44 | NUR ---
PT REFUSED LIDODERM PATCH. DR FISHER WAS AT BEDSIDE IS AWARE OF PATIENTS PAIN LEVEL AND REQUEST TO ADJUST PAIN MED
--- NOTE | 2022-03-22 10:56 | NUR ---
PT PAIN LEVEL 6/10. PT RESTING IN BED RESP EVEN AND UNLABORED
--- NOTE | 2022-03-22 14:11 | NUR ---
SURGEON AT BEDSIDE . NEW DIET ORDER OF C.L. OFFERED APPLE JUICE OF 40Z TOLERATED WELL. DENIES N/V. DENIES PAIN. HOB ELEVATED. SIDE RAILS UP X2. BED AT LOWEST POSITION. RESP EVEN AND UNLABORED
--- NOTE | 2022-03-22 16:32 | NUR ---
PT IS SLEEPING RESP EVEN AND UNLABORED. HOB ELEVATED
--- NOTE | 2022-03-22 17:25 | NUR ---
PAIN LEVEL AT 5/10. PT IN BED RESTING . RESP EVEN AND UNLABORED. HOB ELEVATED. SIDE RAILS UP X2.
--- NOTE | 2022-03-22 19:45 | NUR ---
AWAKE AND ALERT. IS VOIDING WELL PER URINAL
[2022-03-22 19:59] LABS: BASOPHILS # (AUTO) 0.1 K/uL (0.00-0.22); BASOPHILS % (AUTO) 0.5 % (0.0-2.0); EOSINOPHILS # (AUTO) 0.2 K/uL (0-0.4); EOSINOPHILS % (AUTO) 1.4 % (0.0-4.0); HEMATOCRIT 46.1 % (36-52); HEMOGLOBIN 15.1 g/dL (12.0-18.0); LYMPHOCYTES # (AUTO) 1.9 K/uL (2.0-11.5); LYMPHOCYTES % (AUTO) 15.5 % (20.5-51.1); MEAN CORPUSCULAR HEMOGLOBIN 28 pg (27-31); MEAN CORPUSCULAR HGB CONC 33 g/dL (33-37); MEAN CORPUSCULAR VOLUME 86.7 fL (80-94); MONOCYTES # (AUTO) 1.4 K/uL (0.8-1.0); MONOCYTES % (AUTO) 10.9 % (1.7-9.3); NEUTROPHILS # (AUTO) 8.9 K/uL (1.8-7.7); NEUTROPHILS % (AUTO) 71.7 % (42.2-75.2); PLATELET COUNT (AUTO) 383 K/uL (140-450); RED BLOOD CELL COUNT(AUTO) 5.32 MIL/uL (4.20-6.10); RED CELL DISTRIBUTION WIDTH 14.6 % (11.6-13.7); WHITE BLOOD COUNT (AUTO) 12.4 K/uL (4.8-10.8)
[2022-03-22 20:06] LABS: ANION GAP 13.9 (8-16); CARBON DIOXIDE 24.6 mmol/L (21-32); CREATININE 1.2 mg/dL (0.6-1.3); POTASSIUM 4.5 mmol/L (3.5-5.1)
[2022-03-22 20:10] LABS: MAGNESIUM 2.3 mg/dL (1.8-2.4); PHOSPHORUS 3.6 mg/dL (2.5-4.9)
[2022-03-22] MEDS: HYDROcodone/APAP 7.5/325 MG 1 TAB PO PRN (20:28)
--- NOTE | 2022-03-22 22:45 | NUR ---
C/O PAIN 04/02. MEDICATED ORDERED
[2022-03-23] MEDS: HYDROcodone/APAP 7.5/325 MG 1 TAB PO PRN ×3 (02:26→15:43)
[2022-03-23] MEDS: MORPHINE SULFATE 2 MG/ML SYR IVP PRN ×6 (02:45→21:28)
[2022-03-23] MEDS: LIDOCAINE 5% 1 EA PATCH TP SCH (09:00)
[2022-03-23] MEDS: TAMSULOSIN 0.4 MG CAP PO SCH (09:36)
[2022-03-23] MEDS: ASPIRIN 81 MG TAB.CHEW PO SCH (09:36)
[2022-03-23] MEDS: DOCUSATE SODIUM 100 MG GELCAP PO SCH ×2 (09:37→20:54)
[2022-03-23] MEDS: ATORVASTATIN 80 MG TAB PO SCH (09:38)
[2022-03-23] MEDS: VITAMIN D 400 IU TAB PO SCH (09:39)
[2022-03-23] MEDS: carvediloL 6.25 MG TAB PO SCH ×2 (09:40→20:54)
[2022-03-23] MEDS: PANTOPRAZOLE 40 MG TABEC PO SCH (09:41)
[2022-03-23] MEDS: DULoxetine 30 MG CAPDR PO SCH (09:41)
[2022-03-23] MEDS: hydrALAZINE 25 MG TAB PO SCH ×3 (09:54→17:55)
[2022-03-23] MEDS: HYDROXYZINE HYDROCHLORIDE 25 MG TAB PO SCH ×2 (09:56→20:54)
--- NOTE | 2022-03-23 10:45 | NUR ---
PATIENT HAS BEEN SCREENED AND CATEGORIZED LOW NUTRITION RISK. PATIENT WILL BE SEEN WITHIN 7 DAYS OF ADMISSION. 03/22/22-03/28/[address]
--- NOTE | 2022-03-23 11:15 | NUR ---
PT IS A 66YR OLD MALE ADMITTED FOR INTRACTABLE BACK PAIN. PT IS A MED[facility] HOLD. A&OX4. AMBULATE WITH ASSIT. BACK PAIN IS CHRONIC S/P FALL FROM OLD INJURY. PAIN LEVEL 9/10. 22G IV CATH L FOOT. PT IS A HARD STICK. HOB ELEVATED. ON BEDSIDE MONITOR. PT IS ON A INPATIENT HOSPITAL BED. BED AT LOWEST POSITION. PENDING BED AVAILABLITILY.
--- NOTE | 2022-03-23 12:04 | NUR ---
PT REQUESTING TO SEE DR FISHER REGARDING PLAN OF ACTION OF CARE Addendum: 03/23/[address] Clifford FISHER NOTIFED
--- NOTE | 2022-03-23 13:17 | NUR ---
PAIN LEVEL 7/10 AFTER MEDS. PT STATED HAVING PAIN ON LEFT LOWER LEFT FLANK AREA. 9/10 PAIN THAT STARTED THIS MORNING. PT IN HOSPITAL BED. ON BEDSIDE MONITOR. DR FISHER TO ROUND ON PT SOMETIME THIS AFTERNOON
--- NOTE | 2022-03-23 16:00 | NUR ---
Patient will be admitted to care of DR FISHER. Admited to MED SURG. Will go to [id number]. Belongings list completed. Report to HUGH OROZCO.
--- NOTE | 2022-03-23 16:01 | NUR ---
The patient's care was reviewed and supervised by Olga Crandall RN.
--- NOTE | 2022-03-23 16:09 | NUR ---
PT WHEELED TO [facility]ST FROM ED. RECEIVED REPORT FROM ED NURSE. PT NORMA. ONSITE AND WILL SEE PT.
[2022-03-23] MEDS ORDERED: oxyCODONE/APAP 5/325 MG 1 TAB TAB PO PRN (17:05)
[2022-03-23 17:32] VITALS: BP 158/86
--- NOTE | 2022-03-23 18:37 | NUR ---
9 Addendum: 03/23/22 at 1839 by Gil Fonseca RN RN PT MEDICATED FOR PAIN. PT STATED BACK PAIN WAS 7/10 AND CHRONIC. WILL CONTINUE TO MONITOR
--- NOTE | 2022-03-23 19:04 | NUR ---
ENDORSED PT TO BULK TANK CAR UNLOADER NURSE. NO S/S OF DISTRESS. CALL LIGHT IN REACH. ALL SAFETY MEASURES IN PLACE
--- NOTE | 2022-03-23 19:15 | NUR ---
RECEIVED PATIENT FROM AM NURSE FOR CONTINUITY OF CARE.PT IS STABLE
[2022-03-23 20:00] VITALS: BP 142/73
--- NOTE | 2022-03-23 21:30 | NUR ---
ALL MEDS GIVEN AT THIS TIME,NO ADVERSE REACTIONS NOTED
[2022-03-24] MEDS: MORPHINE SULFATE 2 MG/ML SYR IVP PRN ×8 (00:39→22:42)
--- NOTE | 2022-03-24 01:00 | NUR ---
PATIENT ASLEEP,BREATHING EVEN AND UNLABORED,NO DISTRESS NOTED
--- NOTE | 2022-03-24 03:00 | NUR ---
PATIENT ASLEEP,RESPIRATIONS EVEN AND UNLABORED,NO DISTRESS NOTED
[2022-03-24 04:00] VITALS: BP 153/70
[2022-03-24] MEDS ORDERED: MORPHINE SULFATE 4 MG/ML SYR ONE (06:58)
--- NOTE | 2022-03-24 07:15 | NUR ---
RECEIVED REPORT FROM NIGHTSHIFT NURSE SVEERIANO FOR CONTINUITY OF CARE. PT IN STABLE CONDITION, A/OX4 AND CURRENTLY AWAKE. PT IS BREATHING EVEN, REGULAR AND UNLABORED ON ROOM AIR. PT IS CONTINENT OF THE BOWEL AND BLADDER, AMBULATORY WITH WALKER. PENDING PT EVALUATION.
[2022-03-24 08:00] VITALS: BP 142/74
[2022-03-24] MEDS: HYDROXYZINE HYDROCHLORIDE 25 MG TAB PO SCH ×2 (09:00→21:24)
[2022-03-24] MEDS: LIDOCAINE 5% 1 EA PATCH TP SCH (09:00)
[2022-03-24] MEDS: DULoxetine 30 MG CAPDR PO SCH (09:38)
[2022-03-24] MEDS: hydrALAZINE 25 MG TAB PO SCH ×3 (09:39→16:21)
[2022-03-24] MEDS: PANTOPRAZOLE 40 MG TABEC PO SCH (09:40)
[2022-03-24] MEDS: VITAMIN D 400 IU TAB PO SCH (09:40)
[2022-03-24] MEDS: TAMSULOSIN 0.4 MG CAP PO SCH (09:41)
[2022-03-24] MEDS: carvediloL 6.25 MG TAB PO SCH ×2 (09:41→21:25)
[2022-03-24] MEDS: DOCUSATE SODIUM 100 MG GELCAP PO SCH ×2 (09:41→21:25)
[2022-03-24] MEDS: ASPIRIN 81 MG TAB.CHEW PO SCH (09:42)
[2022-03-24] MEDS: ATORVASTATIN 80 MG TAB PO SCH (09:42)
[2022-03-24] MEDS: ONDANSETRON 4 MG/2 ML VIAL IM/IVP PRN ×3 (10:25→16:22)
--- NOTE | 2022-03-24 10:25 | NUR ---
PT COMPLAINED OF PAIN 9/10IN LOWER BACK. MEDICATED WITH PRN MORPHINE AND ZOFRAN TO PREVENT NAUSEA. DR. LLANES ROUNDED ON PT, RECOMMENDED HOME HEALTH AND PHYSICAL THERAPY.
--- NOTE | 2022-03-24 13:49 | NUR ---
DC PLANNING: THE PATIENT PRESENTED FROM HOME WITH INTRACTABLE BACK PAIN S/P LUMBER FACET INJECTIONS AT [facility] WITH HIS PAIN MANAGEMENT MD, PER HIS STATEMENT. MULTIPLE HOSPITALIZATIONS FOR THE SAME COMPLAINT, S/P POSTERIOR DECOMPRESSION AND HARDWARE FIXATION. H/O CAD, HTN, NEUROPATHY, CHF, GERD AND BPH. PATRICIA SPOKE WITH THE PATIENT AT BEDSIDE, HE STATES HE HAD FACET INJECTIONS LAST THURSDAY AT [facility] AND HAS HAD INTRACTABLE BACK PAIN SINCE. HE HAS BEEN ON SERVICE WITH [facility] FOR P.T. BUT CAN'T REMEMBER AGENCY NAME. PATRICIA LEFT A MESSAGE FOR HIS ASKING FOR H.H. AGENCY. THE PATIENT ALSO SEES DR GARDINER, NEUROLOGIST AT [facility] AND HIS PCP IS Wendy CISNEROS IN [place], HE SEES HIM EVERY THREE TO FOUR MONTHS. HE LIVES IN A SINGLE STORY HOUSE WITH HIS AND HAS DME OF CPAP, FWW AND WC. HE IS ABLE TO AMBULATE SHORT DISTANCES INSIDE THE HOUSE BUT IS FRUSTRATED WITH HIS LACK OF PROGRESSION AND FREQUENT HOSPITALIZATIONS. THE PATIENT WOULD LIKE TO BE REFERRED TO [facility], PATRICIA WILL SEND REFERRAL ONCE HE IS SEEN BY P.T.. THE PATIENT DECLINED SNF PLACEMENT DURING CONVERSATION, STATES THAT HE WILL GO HOME WITH H.H. P.T IF [facility] DECLINES. PATRICIA WILL FOLLOW. Addendum: 03/25/22 at 1534 by Jannie Alston CM DC PLANNING: PATRICIA SPOKE WITH MARYANN AT [facility], THEY ARE ABLE TO ACCEPT THE PATIENT BUT WON'T HAVE BEDS FOR SEVERAL DAYS. PATRICIA SPOKE WITH THE PATIENT TO LET HIM KNOW, HE WANTS TO GO HOME AND WILL FOLLOW UP WITH HOME HEALTH HE DOESN'T REMEMBER THE AGENCY NAME. HE STATES HE WILL DC TOMORROW PER THE ATTENDING MD WHO CONFIRMED THIS. THE PATIENTS WILL PICK HIM UP. CM WILL FOLLOW.
--- NOTE | 2022-03-24 13:50 | NUR ---
PT COMPLAINED OF PAIN 9/10IN LOWER BACK. MEDICATED WITH PRN MORPHINE AND ZOFRAN TO PREVENT NAUSEA.
[2022-03-24 16:00] VITALS: BP 131/71
--- NOTE | 2022-03-24 16:30 | NUR ---
PT COMPLAINED OF PAIN 9/10IN LOWER BACK. MEDICATED WITH PRN MORPHINE AND ZOFRAN TO PREVENT NAUSEA.
--- NOTE | 2022-03-24 19:13 | NUR ---
ENDORSED PT TO NIGHTSHIFT NURSE YESY. PT IN STABLE CONDITION. Addendum: 03/24/22 at 1944 by Raymond Martin RN NIGHTSHIFT NURSE CHANGED TO VEENA. ENDORSED, PT IN STABLE CONDITION.
--- NOTE | 2022-03-24 19:14 | NUR ---
PATIENT RECEIVED REPORT FROM JIMBO RN, PATIENT IN BED ALERT AND ORIENTED. PATIENT IS ABLE TO TELL NURSING WHY HE IS IN THE HOSPITAL. ABLE TO BREATH WITHOUT RESPIRATORY DISTRESS. PATIENT IS AWARE OF POSSIBLE DISCHARGE ARRANGEMENT FOR TOMORROW. DENIES ANY PAIN AT THIS TIME. KEPT CLEAN AND DRY SIDE RAILS UP X 2 CALL LIGHT IN REACH FOR ASSISTANCE AND NEEDS. BED AT THE LOWEST LEVEL. PATIENT WAS AGREES AND UNDERSTANDS.
[2022-03-24 20:00] VITALS: BP 127/61
--- NOTE | 2022-03-24 21:00 | NUR ---
Patient's Plan of Care was discussed and reviewed with ENTRY LEVEL MACHINE OPERATOR: VEENA ZENG
--- NOTE | 2022-03-24 21:54 | NUR ---
DISCONTINUED IV TO LEFT FOOT BECAUSE IT WAS IRRIATATION PATIENT. PATIENT HAS IV ACCESS IN THE RIGHT AC THAT IS CLEAN AND PATENT. PATIENT WAS GIVEN A PAIN PRN BY COVERING RN AND HAS NO NOTED PAIN/DISCOMFORT AT THIS TIME. SIDE RAILS UP X 2 FOR SAFETY AND ADJUSTMENTS. CALL LIGHT WITHIN REACH FOR ASSISTANCE AND NEEDS. [email or web address]
[2022-03-24] MEDS ORDERED: ZOLPIDEM 5 MG TAB PO PRN (22:40)
--- NOTE | 2022-03-24 23:46 | NUR ---
PATIENT NOTED IN BED ASLEEP. KEPT CLEAN AND DRY. NO NOTED S/S OF PAIN/DISCOMFORT. NURSING NOTED PATIENT REQUEST PAIN MEDICATION EVERY 3 HOURS MEDICATION WAS WRITTEN. PATIENT EDUCATION WAS GIVEN ON SIDE EFFECTS AND USING ALTERNATIVE MEASURES THAN MEDICATION ONLY. PATIENT UNDERSTOOD BUT WOULD RATHER PAIN MEDICATION. SIDE RAILS UPX2 CALL LIGHT WITHIN REACH. [email or web address]
--- NOTE | 2022-03-25 01:50 | NUR ---
NURSING OBSERVED PATIENT IN BED ASLEEP WITH NOTED SNORING AND TALKING IN HIS SLEEP. HEAD OF BED ELEVATED TO PREVENT ASPIRATION AND INCREASE RESPIRATORY BREATHING. NO ORDERS FOR CPAP. POSSIBLE DISCHARGE TOMORROW WILL ENDORSE TO AM SHIFT FOR CPAP. SIDE RAILS UP X 2 CALL LIGHT WITHIN REACH FOR ASSISTANCE. [email or web address]
[2022-03-25] MEDS: MORPHINE SULFATE 2 MG/ML SYR IVP PRN ×2 (02:38→05:43)
--- NOTE | 2022-03-25 03:42 | NUR ---
PATIENT IN BED ASLEEP. CHEST NOTED RISING AND FALLING WITHOUT DISTRESS. NO NOTED S/S OF PAIN/DISCOMFORT. SIDE RAILS UP X 2 FOR SAFETY. CALL LIGHT WITHIN REACH FOR ASSISTANCE. [email or web address]
[2022-03-25 04:00] VITALS: BP 147/75
--- NOTE | 2022-03-25 05:47 | NUR ---
PATIENT NOTED IN BED AWAKE REQUESTING COFFEE, PAIN MEDICATION, WATER. HEAD OF BED ELEVATED FOR IMPROVED INSPIRATION. PATIENT KEPT CLEAN AND DRY. PATIENT DENIES ANY RESPIRATORY DISTRESS. PATIENT WAS NOTED CHEST RISING AND FALLING EVENLY. SIDE RAILS UP X 2 & CALL LIGHT WITHIN REACH FOR ASSISTANCE. [email or web address]
--- NOTE | 2022-03-25 07:17 | NUR ---
ENDORSED PATIENT TO CLARA RN, PATIENT WAS STABLE AT SHIFT CHANGE. [email or web address]
--- NOTE | 2022-03-25 07:49 | NUR ---
Got report from the night nurse , pt , awake discussed plan of care. [email or web address]
[2022-03-25 08:00] VITALS: BP 149/85
--- NOTE | 2022-03-25 08:55 | NUR ---
MORPHINE 3MG IV PUSH GIVEN TO THE PATIENT C\O PAIN. THE VIAL HOLD 4MG SO WASTED 1MG WITH ERNESTO GRACIA. BLANCA
[2022-03-25] MEDS: DOCUSATE SODIUM 100 MG GELCAP PO SCH ×2 (08:57→22:06)
[2022-03-25] MEDS: DULoxetine 30 MG CAPDR PO SCH (08:58)
[2022-03-25] MEDS: ATORVASTATIN 80 MG TAB PO SCH (08:58)
[2022-03-25] MEDS: VITAMIN D 400 IU TAB PO SCH (08:58)
[2022-03-25] MEDS: hydrALAZINE 25 MG TAB PO SCH ×3 (08:59→17:00)
[2022-03-25] MEDS: carvediloL 6.25 MG TAB PO SCH ×2 (08:59→22:06)
[2022-03-25] MEDS: LIDOCAINE 5% 1 EA PATCH TP SCH (09:00)
[2022-03-25] MEDS: ASPIRIN 81 MG TAB.CHEW PO SCH (09:00)
[2022-03-25] MEDS: PANTOPRAZOLE 40 MG TABEC PO SCH (09:06)
[2022-03-25] MEDS: TAMSULOSIN 0.4 MG CAP PO SCH (09:06)
[2022-03-25] MEDS: HYDROXYZINE HYDROCHLORIDE 25 MG TAB PO SCH ×3 (09:07→22:05)
[2022-03-25] MEDS: MORPHINE SULFATE 4 MG/ML SYR IVP PRN ×3 (11:47→18:20)
[2022-03-25] MEDS: MUPIROCIN CA NASAL 2% 1GM TUBE NS SCH (11:47)
[2022-03-25] MEDS: CHLORHEXADINE GLUC 2% CLOTH TP SCH (12:15)
--- NOTE | 2022-03-25 19:25 | NUR ---
RECEIVED REPORT FROM DAY SHIFT NURSE FOR CONTINUITY OF PT CARE. PT IS AWAKE, ALERT, ORIENTED X 4 AND VERBALLY RESPONSIVE. PT IS WITH NO SOB OR DISTRESS. RESPIRATION EVEN AND BILATERAL LUNGS CLEAR. PT COMPLAINTS OF BACK BEARABLE BACK PAIN AND WAIT FOR NEXT DUE MORPHINE. PT REFUSED PERCOCET FOR MODERATE PAIN. SKIN INTACT. PT CONSUMED 100% OF DINNER. DENIED OF NAUSEA, NO VOMITING. SALINE LOCK ON RIGHT AC - 20 G INTACT AND PATENT.
[2022-03-25 20:00] VITALS: BP 125/72
--- NOTE | 2022-03-25 21:00 | NUR ---
PT REFUSED MED ATARAX FOR ITCHING. PT STATED ATARAX WAS NOT EFFECTIVE AND ITCHING DID NOT GO AWAY. BENADRYL IS EFFECTIVE FOR HIS ITCHING. REPORTED TO , DR. LLANES APPROVED AND PRESCRIBED BENADRYL 25 MG TAB PO ONCE. ORDER CARRIED OUT.
--- NOTE | 2022-03-25 21:20 | NUR ---
PT COMPLAINTS OF SEVERE BACK PAIN OF 8/10, PAIN MEDICATION ADMINISTERED ORDERED.
--- NOTE | 2022-03-25 22:20 | NUR ---
REASSESSMENT FOR PAIN: PT ASLEEP, NO FACIAL GRIMACING OR DISCOMFORT.
[2022-03-26] MEDS: MORPHINE SULFATE 4 MG/ML SYR IVP PRN ×5 (00:48→14:38)
--- NOTE | 2022-03-26 00:48 | NUR ---
PT COMPLAINTS OF BACK PAIN 04/02, PAIN MEDICATION ADMINISTERED ORDER.
--- NOTE | 2022-03-26 01:48 | NUR ---
REASSESSMENT OF PAIN: PAIN MEDICATION IS EFFECTIVE. PT IS ASLEEP, NO FACIAL GRIMACING. CALL LIGHT WITHIN THE REACH.
[2022-03-26 04:00] VITALS: BP 124/73
--- NOTE | 2022-03-26 04:10 | NUR ---
PT COMPLAINTS OF A LOT OF PAIN ON HIS BACK, PAIN MEDICATION ADMINISTERED ORDERED.
--- NOTE | 2022-03-26 05:10 | NUR ---
REASSESSMENT OF PAIN: PT IS ASLEEP. NO FACIAL GRIMACING.
--- NOTE | 2022-03-26 07:25 | NUR ---
PT IS ON STABLE CONDITION, NO SOB OR DISTRESS, CALL LIGHT WITHIN THE REACH. ENDORSED TO DAY SHIFT NURSE FOR CONTINUITY OF PT CARE.
--- NOTE | 2022-03-26 07:28 | NUR ---
RECEIVED PT FROM NIGHT RN, PT IS ALERT, AWAKE AND ORIENTED, ON RA, SIDE RAILS ARE UP AND CALL LIGHT WITHIN REACH, IV LINE NOTED ON THE RAC G. 20 ON SALINE LOCK, PT C/O PAIN RATE OF 7/10 AND WILL MEDICATE, ON CONTACT ISOLATION FOR MRSA OF NARES, NO SIGN OF DISTRESS NOTED AND WILL CONTINUE TO MONITOR.
--- NOTE | 2022-03-26 07:50 | NUR ---
PT WAS MEDICATED NOW FOR PAIN RATE OF 8/10.
[2022-03-26 08:00] VITALS: BP 152/76
[2022-03-26] MEDS: LIDOCAINE 5% 1 EA PATCH TP SCH ×2 (09:00→09:14)
[2022-03-26] MEDS: PANTOPRAZOLE 40 MG TABEC PO SCH (09:14)
[2022-03-26] MEDS: VITAMIN D 400 IU TAB PO SCH (09:15)
[2022-03-26] MEDS: ATORVASTATIN 80 MG TAB PO SCH (09:15)
[2022-03-26] MEDS: DULoxetine 30 MG CAPDR PO SCH (09:15)
[2022-03-26] MEDS: DOCUSATE SODIUM 100 MG GELCAP PO SCH (09:15)
--- NOTE | 2022-03-26 09:15 | NUR ---
DR. LLANES IN THE PT'S ROOM AND TALKING TO PT NOW REGARDING PLAN OF CARE AND PT VERBALIZED UNDERSTANDING.
[2022-03-26] MEDS: hydrALAZINE 25 MG TAB PO SCH ×2 (09:16→13:52)
[2022-03-26] MEDS: ASPIRIN 81 MG TAB.CHEW PO SCH (09:16)
[2022-03-26] MEDS: TAMSULOSIN 0.4 MG CAP PO SCH (09:16)
[2022-03-26] MEDS: carvediloL 6.25 MG TAB PO SCH (09:17)
[2022-03-26] MEDS: HYDROXYZINE HYDROCHLORIDE 25 MG TAB PO SCH (09:18)
--- NOTE | 2022-03-26 09:26 | NUR ---
LIDOCAINE PATCH WAS WASTED DUE TO PT CHANGED HIS MIND AND DOES NOT WANT THE PATCH ON HIM ANYMORE, PHARMACIST WAS INFORMED.
[2022-03-26] MEDS: MUPIROCIN CA NASAL 2% 1GM TUBE NS SCH (13:49)
[2022-03-26] MEDS: CHLORHEXADINE GLUC 2% CLOTH TP SCH (13:49)
[2022-03-26 14:59] VITALS: BP 138/76
--- NOTE | 2022-03-26 16:10 | NUR ---
DISCHARGED PT TO HOME ACCOMPANIED BY , DISCHARGE INSTRUCTIONS WERE GIVEN TO PT AND VERBALIZED UNDERSTANDING, IV LINE REMOVED AND PT IS STABLE AT THIS TIME.
== END 2022-03-26 16:15 | disposition home or self-care (01) | DRG 551 ==
LOC: MED 17:27 → MMU 19:51 → MTU 03-22 05:24 → MMU 03-22 05:28 → MTU 03-23 06:28
PROVIDERS: ADMIT Hospitalist; ATTEND Hospitalist
DX: M47.815 Spondylosis without myelopathy or radiculopathy, thoracolumbar region (principal); E43 Unspecified severe protein-calorie malnutrition; Z68.42 Body mass index [BMI] 45.0-49.9, adult; K21.9 Gastro-esophageal reflux disease without esophagitis; G62.9 Polyneuropathy, unspecified; I25.10 Atherosclerotic heart disease of native coronary artery without angina pectoris; N40.0 Benign prostatic hyperplasia without lower urinary tract symptoms; G89.29 Other chronic pain; E66.01 Morbid (severe) obesity due to excess calories; E55.9 Vitamin D deficiency, unspecified; Z20.822 Contact with and (suspected) exposure to COVID-19; K59.00 Constipation, unspecified; Z88.8 Allergy status to other drugs, medicaments and biological substances; Z79.899 Other long term (current) drug therapy; Z79.82 Long term (current) use of aspirin
CPT/HCPCS: 36415; 80048; 80053; 83735; 84100; 85025; 87081; 96361; 96374; 96375; 97163-GP; 99285; J1170; J1644; J2270; J2405; J7030; Q0163

== ENCOUNTER 2022-05-10 18:30 | Emergency (ER) | payer OTHER ==
[~2022-05-10] VITALS: Ht 182.9 cm; Wt 163.3 kg
[2022-05-10 18:34] VITALS: BP 152/103
--- NOTE | 2022-05-10 18:39 | NUR ---
PT W/C ASSISTED TO BED 5.
[2022-05-10] MEDS ORDERED: methylPREDNISolone SS 125 MG/2 ML VIAL IVP ONE (18:55)
[2022-05-10] MEDS ORDERED: MORPHINE SULFATE 10 MG/ML VIAL IVP ONE (18:55)
[2022-05-10] MEDS ORDERED: KETOROLAC 15 MG/ML VIAL IVP ONE (18:55)
--- NOTE | 2022-05-10 19:20 | NUR ---
Report given to JG Garcia for transfer of care.
[2022-05-10 19:53] LABS: ALBUMIN 3.3 g/dL (3.4-5.0); ANION GAP 12.4 (8-16); CARBON DIOXIDE 25.2 mmol/L (21-32); CREATININE 1.1 mg/dL (0.6-1.3); POTASSIUM 4.6 mmol/L (3.5-5.1); TOTAL BILIRUBIN 0.2 mg/dL (0.0-1.0)
[2022-05-10 19:55] LABS: BASOPHILS # (AUTO) 0.1 K/uL (0.00-0.22); BASOPHILS % (AUTO) 0.9 % (0.0-2.0); EOSINOPHILS # (AUTO) 0.3 K/uL (0-0.4); EOSINOPHILS % (AUTO) 3.2 % (0.0-4.0); HEMOGLOBIN 15.4 g/dL (12.0-18.0); LYMPHOCYTES # (AUTO) 2.1 K/uL (2.0-11.5); MEAN CORPUSCULAR HEMOGLOBIN 29 pg (27-31); MEAN CORPUSCULAR HGB CONC 34 g/dL (33-37); MEAN CORPUSCULAR VOLUME 87.4 fL (80-94); MONOCYTES # (AUTO) 1.1 K/uL (0.8-1.0); MONOCYTES % (AUTO) 12.5 % (1.7-9.3); NEUTROPHILS # (AUTO) 5.5 K/uL (1.8-7.7); NEUTROPHILS % (AUTO) 60.4 % (42.2-75.2); PLATELET COUNT (AUTO) 378 K/uL (140-450); RED BLOOD CELL COUNT(AUTO) 5.26 MIL/uL (4.20-6.10); RED CELL DISTRIBUTION WIDTH 14.6 % (11.6-13.7)
--- NOTE | 2022-05-10 20:16 | NUR ---
Dr. Fontana examining patient.
[2022-05-10] MEDS ORDERED: PRED20TA5 PO (20:30)
[2022-05-10] MEDS ORDERED: MORPHINE SULFATE 4 MG/ML SYR IVP ONE (20:35)
--- NOTE | 2022-05-10 20:45 | NUR ---
Patient discharged with v/s stable. Written and verbal after care instructions given and explained. Patient alert, oriented and verbalized understanding of instructions. Carried with steady gait. All questions addressed prior to discharge. ID band removed. Patient advised to follow up with PMD. Rx of PREDNISONE given. Patient educated on indication of medication including possible reaction and side effects. Opportunity to ask questions provided and answered.
[2022-05-10 21:03] VITALS: BP 121/62
== END 2022-05-10 20:45 | disposition home or self-care (01) ==
LOC: MED 18:30
DX: M54.50 Low back pain, unspecified (principal); I10 Essential (primary) hypertension; Z79.899 Other long term (current) drug therapy
CPT/HCPCS: 36415; 80053; 83605; 85025; 96374; 96375; 96376; 99284; J1885; J2270; J2930

== ENCOUNTER 2022-06-06 17:36 | Emergency (ER) | payer OTHER ==
[~2022-06-06] VITALS: Ht 182.9 cm; Wt 163.3 kg
[~2022-06-06 17:36] MED LIST changes: +PRED20TA5 PO
[2022-06-06 17:51] VITALS: BP 120/73
--- NOTE | 2022-06-06 18:33 | NUR ---
PT C/O BILATERAL LEG EDEMA X3 DAYS +3 PITTING EDEMA NOTED, ALSO C/O ABSCESS TO BACK X3 DAYS. IV INSERTED TO RIGHT HAND #20GUAGE BLOOD DRAWN AND SENT. DR SEGOVIA AT BEDSIDE
[2022-06-06] MEDS ORDERED: LIDOCAINE MPF 1% 10 MG/ML VIAL INJ ONE (18:55)
[2022-06-06] MEDS ORDERED: FUROSEMIDE 40 MG/4 ML VIAL IVP ONE (18:55)
[2022-06-06] MEDS ORDERED: MORPHINE SULFATE 4 MG/ML SYR IVP ONE ×2 (18:55→21:05)
[2022-06-06 19:53] LABS: BASOPHILS # (AUTO) 0.1 K/uL (0.00-0.22); EOSINOPHILS # (AUTO) 0.3 K/uL (0-0.4); EOSINOPHILS % (AUTO) 3.2 % (0.0-4.0); HEMOGLOBIN 13.6 g/dL (12.0-18.0); LYMPHOCYTES # (AUTO) 1.8 K/uL (2.0-11.5); LYMPHOCYTES % (AUTO) 17.3 % (20.5-51.1); MEAN CORPUSCULAR HEMOGLOBIN 30 pg (27-31); MEAN CORPUSCULAR HGB CONC 34 g/dL (33-37); MEAN CORPUSCULAR VOLUME 87.7 fL (80-94); MONOCYTES # (AUTO) 1.5 K/uL (0.8-1.0); MONOCYTES % (AUTO) 14.2 % (1.7-9.3); NEUTROPHILS # (AUTO) 6.7 K/uL (1.8-7.7); NEUTROPHILS % (AUTO) 64.3 % (42.2-75.2); PLATELET COUNT (AUTO) 322 K/uL (140-450); RED BLOOD CELL COUNT(AUTO) 4.57 MIL/uL (4.20-6.10); RED CELL DISTRIBUTION WIDTH 14.9 % (11.6-13.7); WHITE BLOOD COUNT (AUTO) 10.4 K/uL (4.8-10.8)
[2022-06-06] MEDS ORDERED: LIDOCAINE MPF 1% 5 ML ONE (20:01)
--- NOTE | 2022-06-06 20:10 | NUR ---
Assumed care of pt at this time. Provider doing I&D to abscess on back. Pt tolerating well. Updated pt on POC with full returned verbal understanding. Will continue to monitor.
[2022-06-06 20:19] LABS: ALBUMIN 3.1 g/dL (3.4-5.0); ANION GAP 15.1 (8-16); CARBON DIOXIDE 25.9 mmol/L (21-32); CREATININE 1.2 mg/dL (0.6-1.3); TOTAL BILIRUBIN 0.4 mg/dL (0.0-1.0)
--- NOTE | 2022-06-06 20:30 | NUR ---
Pt has IV 20g to right thumb, started prior to my assumption of care.
[2022-06-06] MEDS ORDERED: NALO4SPR NS (21:44)
[2022-06-06] MEDS ORDERED: ACET-8386 PO (21:44)
--- NOTE | 2022-06-06 22:22 | NUR ---
Patient discharged with v/s stable. Written and verbal after care instructions given and explained. Patient alert, oriented and verbalized understanding of instructions. Wheel Chair Assisted with to lobby awaiting to pick him up. All questions addressed prior to discharge. ID band removed. Patient advised to follow up with PMD. Rx of given. Patient educated on indication of medication including possible reaction and side effects. Opportunity to ask questions provided and answered.
[2022-06-06 22:23] VITALS: BP 158/64
== END 2022-06-06 22:26 | disposition home or self-care (01) ==
LOC: MED 17:36
DX: R60.0 Localized edema (principal); Z20.822 Contact with and (suspected) exposure to COVID-19; I10 Essential (primary) hypertension; Z79.899 Other long term (current) drug therapy
CPT/HCPCS: 10060; 36415; 71045; 80053; 83880; 84484; 85025; 87426; 93005; 96374; 96375; 96376; 99285; J1940; J2001; J2270; Q0092

== ENCOUNTER 2022-06-24 16:32 | Emergency (ER) | payer OTHER ==
[~2022-06-24] VITALS: Ht 182.9 cm; Wt 158.8 kg
[~2022-06-24 16:32] MED LIST changes: +ACET-8386 PO; +NALO4SPR NS
[2022-06-24 16:59] VITALS: BP 161/97
--- NOTE | 2022-06-24 17:12 | NUR ---
66 Y/O MALE BIB SELF C/O NECK , BACK , RIGHT KNEE PAIN S/P LOSS OF BALANCE & FALL X 3 DAYS. PER PT HE WAS SEEN IN [place] 3DAYS AGO AND 2DAYS AGO FOR THE SAME ISSUE. WAS GIVEN MORPHINE AFTER XRAYS. PER PT "XRAYS WERE GOOD BUT IT STILL HURTS", DENIES HITTING HEAD, DENIES LOC. PER PT NORMALLY AMBULATORY WITH WALKER, WAS NOT ABLE TO BRING WALKER TO ED. TOOK NORCO 10-325 [id number] FOR PAIN WITH NO RELIEF. PMH:, HDL, HTN, HX ID WITH STENT IN HEART SX: 7 BACK SURGERIES, HIPS & KNEES REPLACEMENT NKA Addendum: 06/24/22 at 1750 by [email or web address] WAS SEEN IN [place] 2 DAYS AGO AND YESTERDAY
[2022-06-24] MEDS ORDERED: MORPHINE SULFATE 4 MG/ML SYR IM ONE (17:55)
--- NOTE | 2022-06-24 18:18 | NUR ---
X-Ray at bedside.
[2022-06-24 19:03] LABS: BASOPHILS # (AUTO) 0.1 K/uL (0.00-0.22); BASOPHILS % (AUTO) 0.6 % (0.0-2.0); EOSINOPHILS # (AUTO) 0.3 K/uL (0-0.4); EOSINOPHILS % (AUTO) 3.2 % (0.0-4.0); HEMATOCRIT 42.9 % (36-52); HEMOGLOBIN 14.5 g/dL (12.0-18.0); LYMPHOCYTES # (AUTO) 2.2 K/uL (2.0-11.5); LYMPHOCYTES % (AUTO) 21.2 % (20.5-51.1); MEAN CORPUSCULAR HEMOGLOBIN 30 pg (27-31); MEAN CORPUSCULAR HGB CONC 34 g/dL (33-37); MEAN CORPUSCULAR VOLUME 87.3 fL (80-94); MONOCYTES # (AUTO) 1.2 K/uL (0.8-1.0); MONOCYTES % (AUTO) 12.1 % (1.7-9.3); NEUTROPHILS # (AUTO) 6.5 K/uL (1.8-7.7); NEUTROPHILS % (AUTO) 62.9 % (42.2-75.2); PLATELET COUNT (AUTO) 372 K/uL (140-450); RED BLOOD CELL COUNT(AUTO) 4.91 MIL/uL (4.20-6.10); RED CELL DISTRIBUTION WIDTH 14.8 % (11.6-13.7); WHITE BLOOD COUNT (AUTO) 10.3 K/uL (4.8-10.8)
--- NOTE | 2022-06-24 19:17 | NUR ---
Pt report given to MANUEL OROZCO. Transfer of care at this time.
[2022-06-24 19:24] LABS: ALBUMIN 3.2 g/dL (3.4-5.0); ANION GAP 13.1 (8-16); CARBON DIOXIDE 26.8 mmol/L (21-32); CREATININE 1.3 mg/dL (0.6-1.3); POTASSIUM 3.9 mmol/L (3.5-5.1); TOTAL BILIRUBIN 0.3 mg/dL (0.0-1.0)
--- NOTE | 2022-06-24 19:33 | NUR ---
PATIETN TO LOBBY IN W/C
[2022-06-24] MEDS ORDERED: NAPR-54 PO (19:54)
[2022-06-24] MEDS ORDERED: ACET-8386 PO (19:54)
[2022-06-24] MEDS ORDERED: HYDROcodone/APAP 5/325 MG 1 TAB TAB PO ONE (20:05)
[2022-06-24] MEDS ORDERED: KETOROLAC 30 MG/ML VIAL IM ONE (20:05)
[2022-06-24 20:30] VITALS: BP 142/89
--- NOTE | 2022-06-24 20:30 | NUR ---
Patient discharged with v/s stable. Written and verbal after care instructions given and explained. Patient alert, oriented and verbalized understanding of instructions. Wheel Chair Assisted with to car. All questions addressed prior to discharge. ID band removed. Patient advised to follow up with PMD. Rx of NAPROSYN, NORCO given. Patient educated on indication of medication including possible reaction and side effects. Opportunity to ask questions provided and answered.
== END 2022-06-24 20:30 | disposition home or self-care (01) ==
LOC: MED 16:32
DX: M79.661 Pain in right lower leg (principal); M25.551 Pain in right hip; I25.10 Atherosclerotic heart disease of native coronary artery without angina pectoris; I10 Essential (primary) hypertension; Z79.899 Other long term (current) drug therapy
CPT/HCPCS: 36415; 73502; 80053; 81002; 85025; 96372; 99284; J1885; J2270; Q0092

== ENCOUNTER 2022-07-13 16:39 | Inpatient (IN) | payer OTHER ==
[~2022-07-13] VITALS: Ht 182.9 cm; Wt 158.8 kg
[~2022-07-13 16:39] MED LIST changes: -ACET-8386 PO; +ACET-8905 PO; +NAPR-54 PO
[2022-07-13 17:33] VITALS: BP 168/91
--- NOTE | 2022-07-13 17:40 | NUR ---
W/C ASSISTED TO BED 4
--- NOTE | 2022-07-13 18:14 | NUR ---
66Y/O MALE C/O BILATERAL LEG PAIN AND SWELLING AND INTERMITTENT EPISODES OF CHEST [id number]. PT REFUSES PALPATION OF LEGS D/T PAIN. PT REPORTS THAT HE IS COMPLIANT WITH HIS DAILY LASIX. PT STATES HE TAKES MORPHINE AND NORCO EVERYDAY BUT HAS NOT EXPERIENCED RELIEF. CMS INTACT PMH: CARDIAC STENTS, HTN, HDL NKDA RX: LASIX, CARVEDILOL, NORCO, DULOXETINE, PANTOPRAZOLE, TAMSULIN, HYDROXYZINE, POTASSIUM, ATORVASTATIN, ASPIRIN, MORPHINE
[2022-07-13] MEDS ORDERED: FUROSEMIDE 40 MG/4 ML VIAL IVP ONE ×2 (18:50→20:23)
[2022-07-13] MEDS ORDERED: ENALAPRILAT 2.5 MG/2 ML VIAL IVP ONE (18:50)
[2022-07-13] MEDS ORDERED: NITROGLYCERIN 2% 1 GM PKT TP ONE ×2 (18:50→20:22)
[2022-07-13] MEDS ORDERED: ASPIRIN 325 MG TAB PO ONE (18:50)
[2022-07-13] MEDS ORDERED: ENOXAPARIN 120 MG/0.8 ML SYR SUBQ ONE ×2 (18:50→20:22)
--- NOTE | 2022-07-13 19:18 | NUR ---
Pt report given to GITA OROZCO. Transfer of care at this time.
--- NOTE | 2022-07-13 19:30 | NUR ---
PT WAS RESTING, FELT NAUSEATED. A & O X 4. FOLLWO COMMAND. COOPERATIVE. UNSTEADY GAIT. USE WALKER AT HOME. WAITING FOR URINE SAMPLE.
[2022-07-13] MEDS ORDERED: ONDANSETRON 4 MG/2 ML VIAL IVP ONE (19:35)
[2022-07-13 19:38] LABS: BASOPHILS # (AUTO) 0.1 K/uL (0.00-0.22); BASOPHILS % (AUTO) 0.9 % (0.0-2.0); EOSINOPHILS # (AUTO) 0.4 K/uL (0-0.4); EOSINOPHILS % (AUTO) 3.2 % (0.0-4.0); HEMATOCRIT 41.5 % (36-52); LYMPHOCYTES # (AUTO) 2.3 K/uL (2.0-11.5); LYMPHOCYTES % (AUTO) 20.7 % (20.5-51.1); MEAN CORPUSCULAR HEMOGLOBIN 29 pg (27-31); MEAN CORPUSCULAR HGB CONC 34 g/dL (33-37); MEAN CORPUSCULAR VOLUME 87.3 fL (80-94); MONOCYTES # (AUTO) 1.3 K/uL (0.8-1.0); MONOCYTES % (AUTO) 12.2 % (1.7-9.3); NEUTROPHILS # (AUTO) 6.9 K/uL (1.8-7.7); PLATELET COUNT (AUTO) 355 K/uL (140-450); RED BLOOD CELL COUNT(AUTO) 4.76 MIL/uL (4.20-6.10); RED CELL DISTRIBUTION WIDTH 14.7 % (11.6-13.7)
[2022-07-13 20:13] LABS: ALBUMIN 3.1 g/dL (3.4-5.0); ANION GAP 14.1 (8-16); CARBON DIOXIDE 27.4 mmol/L (21-32); POTASSIUM 4.5 mmol/L (3.5-5.1); TOTAL BILIRUBIN 0.2 mg/dL (0.0-1.0)
[2022-07-13] MEDS ORDERED: ASPIRIN 325 MG TAB ONE (20:22)
[2022-07-13] MEDS ORDERED: MORPHINE SULFATE 4 MG/ML SYR IVP ONE ×2 (20:30→23:30)
--- NOTE | 2022-07-13 21:00 | NUR ---
PT FELT BETTER WITH 0/10 PAIN. CALM AND RESTING. URINAL AT BEDSIDE
[2022-07-13 21:36] LABS: APPEARANCE,URINE CLEAR (CLEAR); BILIRUBIN,URINE NEGATIVE (NEGATIVE); BLOOD, URINE NEGATIVE (NEGATIVE); COLOR,URINE YELLOW (YELLOW); LEUKOCYTE ESTERASE ,URINE NEGATIVE (NEGATIVE); NITRITE, URINE NEGATIVE (NEGATIVE); UGLUCOSE NEGATIVE (NEGATIVE)
[2022-07-13] MEDS ORDERED: HYDROcodone/APAP 5/325 MG 1 TAB TAB PO PRN (23:40)
[2022-07-14] MEDS ORDERED: MSCON15 PO (01:15)
--- NOTE | 2022-07-14 01:40 | NUR ---
PT WAS ADMITTED TO [facility] DEPARTMENT FROM ER WITH DX OF CHEST PAIN, ANGINA AND CHF. PT IS AOX4, AMBULATORY WITH ASSIST, ABLE TO VERBALIZE NEEDS AND ABLE TO FOLLOW COMMANDS. PT IS ON ROOM AIR AND ON CARDIAC DIET. PT HAS IV ON RIGHT WRIST GAUGE 25 SALINE LOCK. PT DENIES PAIN AT THIS TIME. NO S/S OF RESPIRATORY DISTRESS NOTED. PT SKIN IS INTACT. PT WAS ORIENTED TO HOSPITAL/ROOM, BED BUTTON AND CALL LIGHT. ALL SAFETY MEASURES IMPLEMENTED. BED WHEELS ON LOCKED , BED IN LOW POSITION AND CALL LIGHT WITHIN REACH.
--- NOTE | 2022-07-14 01:57 | NUR ---
Patient will be admitted to care of CHEST PAIN AND ANGINA. Admited to TELEMETRY ]. Will go to room 119 b. Belongings list completed. Report to DAVIE.
[2022-07-14 04:00] VITALS: BP 133/77
--- NOTE | 2022-07-14 04:11 | NUR ---
NOTIFIED DR. DAVIDSON FOR THE PRESCRIPTION OF ZOFRAN DUE TO PT IS FEELING NAUSEOUS. WAITING FOR THE REPLY OF DOCTOR.
[2022-07-14] MEDS: MORPHINE SULFATE 4 MG/ML SYR IVP PRN ×3 (04:42→13:01)
--- NOTE | 2022-07-14 04:42 | NUR ---
PT WAS GIVEN PRN PAIN MEDICATION DUE TO BACK PAIN WITH THE PAIN SCALE OF 7/10. ALL SAFETY MEASURES IMPLEMENTED. BED WHEELS ON LOCKED, BED IN LOW POSITION AND CALL LIGHT WITHIN REACH.
[2022-07-14 05:44] LABS: BASOPHILS # (AUTO) 0.1 K/uL (0.00-0.22); BASOPHILS % (AUTO) 0.6 % (0.0-2.0); EOSINOPHILS # (AUTO) 0.3 K/uL (0-0.4); HEMATOCRIT 41.9 % (36-52); HEMOGLOBIN 13.9 g/dL (12.0-18.0); LYMPHOCYTES # (AUTO) 2.6 K/uL (2.0-11.5); LYMPHOCYTES % (AUTO) 25.7 % (20.5-51.1); MEAN CORPUSCULAR HEMOGLOBIN 29 pg (27-31); MEAN CORPUSCULAR HGB CONC 33 g/dL (33-37); MEAN CORPUSCULAR VOLUME 88.5 fL (80-94); MONOCYTES # (AUTO) 1.1 K/uL (0.8-1.0); NEUTROPHILS # (AUTO) 6.1 K/uL (1.8-7.7); NEUTROPHILS % (AUTO) 59.7 % (42.2-75.2); PLATELET COUNT (AUTO) 381 K/uL (140-450); RED BLOOD CELL COUNT(AUTO) 4.74 MIL/uL (4.20-6.10); RED CELL DISTRIBUTION WIDTH 14.3 % (11.6-13.7); WHITE BLOOD COUNT (AUTO) 10.2 K/uL (4.8-10.8)
[2022-07-14 06:46] LABS: ANION GAP 14.2 (8-16); CARBON DIOXIDE 29.9 mmol/L (21-32); POTASSIUM 4.1 mmol/L (3.5-5.1)
--- NOTE | 2022-07-14 07:22 | NUR ---
PT IS STABLE. ENDORSED PT TO MORNING SHIFT NURSE FOR CONTINUITY OF CARE.
--- NOTE | 2022-07-14 07:50 | NUR ---
GOT REPORT FROM THE NIGHT NURSE, PT AWAKE NO SOB, DISCUSSED POC.[email or web address]
[2022-07-14 08:00] VITALS: BP 170/81
--- NOTE | 2022-07-14 08:47 | NUR ---
PATIENT HAS BEEN SCREENED AND CATEGORIZED MODERATE NUTRITION RISK. PATIENT WILL BE SEEN WITHIN 3-5 DAYS OF ADMISSION. 07/13/22-07/18/[address]
[2022-07-14] MEDS ORDERED: FUROSEMIDE 20 MG/2 ML VIAL IVP SCH (09:00)
[2022-07-14] MEDS ORDERED: NALOXONE HCL NS SCH (09:10)
[2022-07-14] MEDS ORDERED: NITROGLYCERIN 0.4 MG TAB SL PRN (09:10)
[2022-07-14] MEDS ORDERED: DOCUSATE SODIUM 100 MG GELCAP PO PRN (09:10)
[2022-07-14] MEDS ORDERED: MAG SULF 2000 MG/WATER PREMIX 50 ML IV PRN (09:10)
[2022-07-14] MEDS ORDERED: POTASSIUM CHLORIDE 10 MEQ TABER PO PRN (09:10)
[2022-07-14] MEDS: ENOXAPARIN 40 MG/0.4 ML SYR SUBQ SCH (09:12)
[2022-07-14 12:00] VITALS: BP 150/73
[2022-07-14] MEDS: hydrALAZINE 25 MG TAB PO SCH ×2 (13:16→16:33)
[2022-07-14] MEDS: SPIRONOLACTONE 50 MG TAB PO SCH (14:46)
--- NOTE | 2022-07-14 15:08 | NUR ---
DC PLANNING SW MET WITH PT AT BEDSIDE TO COMPLETE ASSESMENT. PT REPORTS RESIDING IN A SINGLE STORY HOME WITH HIS AND SON AT THE ADDRESS LISTED ON FILE. PT IDENTIFIED PAWEL BRENNAN, , EMERGENCY CONTACT AND MDM. PT DENIES HAVING AD IN PLACE AND DECLINED AD OFFERED BY SW. PT REPORTS MEETING WITH PCP, DR. AMELIA KELLEY, NEEDED, LAST VISIT; LAST MONTH. PT REPORTS MEDICATION COMPLIANCE AND DENIES BARRIERS IN ACCESS TO NEEDED MEDIATIONS. PT REPORTS RECEIVING MEDS FROM [facility], WHEN NEEDED. PT REPORTS BEING AMBULATORY WITH DME ASSISTANCE; FWW,WC, CANE, SB. PT REQUIRES ASSISTANCE WITH ADL'S, WHICH HIS AIDS WITH. PT REPORTS RECEIVING [facility] HOURS HOWEVER, UNABLE TO RECALL AMOUNT OF HRS ALLOTTED EACH MONTH. PT DENIES MH/BURKS HX. PT DENIES HX OF DIABETES, DIALYSIS TX AND HH. PT REPORTS SNF PLACEMENT WITH [facility] 2 MONTHS AGO. PT REPORTS LENGTH OF STAY WAS 14 DAYS. PT REOPRTS DC PLAN IS TO RETURN HOME WITH FAMILY PROVIDING TRANSPORTATION, WHEN MEDICALLY STABLE. LORENZO INQUIRED ON RESOURCES NEEDED, PT DECLINED. Addendum: 07/14/22 at 1509 by Sara Benson Amended: Links added.
[2022-07-14 16:00] VITALS: BP 130/84
[2022-07-14] MEDS: HYDROcodone/APAP 10/325 MG 1 TAB TAB PO PRN (16:33)
[2022-07-14] MEDS: FUROSEMIDE 40 MG/4 ML VIAL IVP SCH (16:34)
[2022-07-14] MEDS ORDERED: FUROSEMIDE 40 MG TAB PO SCH (17:00)
--- NOTE | 2022-07-14 19:00 | NUR ---
RECEIVED REPORT FROM DAY NURSE. PATIENT LYING ON THE BED, NO S/S OF DISTRESS NOTED, HEAD OF BED ELEVATED. IV SITE ON RIGHT WRIST G24. CALL LIGHT WITHIN REACH.
[2022-07-14 20:00] VITALS: BP 156/64
[2022-07-14] MEDS: carvediloL 6.25 MG TAB PO SCH (20:20)
[2022-07-14] MEDS: lisinopriL 20 MG TAB PO SCH (20:21)
--- NOTE | 2022-07-14 20:22 | NUR ---
DUE MEDICATIONS GIVEN ORDERED. C/O 6/10 PAIN ON BACK AND LEGS, GIVEN PRN PAIN MEDICATION ORDERED. IV SITE ON RIGHT WRIST FLUSHED WITHOUT DIFFICULTY. CALL LIGHT WITHIN REACH.
--- NOTE | 2022-07-14 21:22 | NUR ---
PATIENT DENIES PAIN UPON UPON ASSESSMENT. PATIENT IS WATCHING TV.
[2022-07-15] VITALS: BP 142/70
--- NOTE | 2022-07-15 00:10 | NUR ---
PATIENT'S VITALS T 96.9, HR 90, BP 142/70, RESP 20, O2 SAT 90% ON ROOM AIR. PATIENT DENIES PAIN, NO S/S OF DISTRESS NOTED. CALL LIGHT WITHIN REACH.
[2022-07-15] MEDS: HYDROcodone/APAP 10/325 MG 1 TAB TAB PO PRN ×2 (01:26→13:39)
--- NOTE | 2022-07-15 02:02 | NUR ---
PATIENT ASLEEP AT THIS TIME. VISIBLE CHEST RISE AND FALL NOTED. WILL CONTINUE TO OBSERVE.
[2022-07-15 04:00] VITALS: BP 152/80
--- NOTE | 2022-07-15 04:30 | NUR ---
PATIENT IS ASLEEP, NO SIGNS OF DISTRESS NOTED, SAFETY PRECAUTIONS MAINTAINED. WILL CONTINUE TO MONITOR THE PATIENT.
[2022-07-15 05:36] LABS: BASOPHILS # (AUTO) 0.1 K/uL (0.00-0.22); BASOPHILS % (AUTO) 0.5 % (0.0-2.0); EOSINOPHILS # (AUTO) 0.3 K/uL (0-0.4); EOSINOPHILS % (AUTO) 2.9 % (0.0-4.0); HEMATOCRIT 43.4 % (36-52); HEMOGLOBIN 14.6 g/dL (12.0-18.0); LYMPHOCYTES # (AUTO) 2.1 K/uL (2.0-11.5); LYMPHOCYTES % (AUTO) 20.7 % (20.5-51.1); MEAN CORPUSCULAR HEMOGLOBIN 30 pg (27-31); MEAN CORPUSCULAR HGB CONC 34 g/dL (33-37); MEAN CORPUSCULAR VOLUME 87.9 fL (80-94); MONOCYTES # (AUTO) 1.3 K/uL (0.8-1.0); MONOCYTES % (AUTO) 12.9 % (1.7-9.3); NEUTROPHILS # (AUTO) 6.4 K/uL (1.8-7.7); PLATELET COUNT (AUTO) 349 K/uL (140-450); RED BLOOD CELL COUNT(AUTO) 4.94 MIL/uL (4.20-6.10); RED CELL DISTRIBUTION WIDTH 14.3 % (11.6-13.7); WHITE BLOOD COUNT (AUTO) 10.2 K/uL (4.8-10.8)
[2022-07-15 05:56] LABS: ANION GAP 13.8 (8-16); CARBON DIOXIDE 31.4 mmol/L (21-32); CREATININE 1.2 mg/dL (0.6-1.3); POTASSIUM 4.2 mmol/L (3.5-5.1)
[2022-07-15 06:00] LABS: MAGNESIUM 2.2 mg/dL (1.8-2.4); PHOSPHORUS 4.2 mg/dL (2.5-4.9)
--- NOTE | 2022-07-15 06:42 | NUR ---
NO ACUTE EVENT THROUGHOUT THE NIGHT. PATIENT STABLE AND NOT ON ANY DISTRESS. NO COMPLAIN AT THIS TIME. ALL NEEDS ATTENDED. CALL LIGHT WITHIN REACH. WILL ENDORSE THE PATIENT TO THE ONCOMING NURSE FOR CONTINUITY OF CARE.
--- NOTE | 2022-07-15 07:18 | NUR ---
ENDORSED PATIENT TO DAY NURSE FOR CONTINUITY OF CARE. ALL NEEDS MET THROUGHOUT THE SHIFT. PATIENT IS STABLE.
--- NOTE | 2022-07-15 07:42 | NUR ---
GOT REPORT FROM THE NIGHT NURSE, PT AWAKE DISCUSSED POC,PT COMPLAIN OF HAVING PAIN. NO SOB. [email or web address]
[2022-07-15 08:00] VITALS: BP 156/85
[2022-07-15] MEDS ORDERED: TAMSULOSIN 0.4 MG CAP PO SCH (08:30)
[2022-07-15] MEDS ORDERED: MORPHINE SULFATE 2 MG/ML SYR IVP SCH (08:49)
[2022-07-15] MEDS ORDERED: PANTOPRAZOLE 40 MG TABEC PO SCH (09:00)
[2022-07-15] MEDS ORDERED: lisinopriL 5 MG TAB PO SCH (09:00)
[2022-07-15] MEDS ORDERED: ASPIRIN 81 MG TAB.CHEW PO SCH (09:00)
[2022-07-15] MEDS ORDERED: CHOLECALCIFEROL PO SCH (09:00)
[2022-07-15] MEDS ORDERED: ATORVASTATIN 80 MG TAB PO SCH (09:00)
[2022-07-15] MEDS ORDERED: DULoxetine 30 MG CAPDR PO SCH (09:00)
[2022-07-15] MEDS ORDERED: CHOLECALCIFEROL 1,000 IU TAB PO SCH (09:00)
[2022-07-15] MEDS: FUROSEMIDE 40 MG/4 ML VIAL IVP SCH (09:08)
[2022-07-15] MEDS: carvediloL 6.25 MG TAB PO SCH (09:09)
[2022-07-15] MEDS: hydrALAZINE 25 MG TAB PO SCH ×2 (09:09→12:41)
[2022-07-15] MEDS: lisinopriL 20 MG TAB PO SCH (09:10)
[2022-07-15] MEDS: ENOXAPARIN 40 MG/0.4 ML SYR SUBQ SCH (09:11)
[2022-07-15] MEDS: SPIRONOLACTONE 50 MG TAB PO SCH (09:20)
[2022-07-15] MEDS ORDERED: CHLORHEXADINE GLUC 2% CLOTH TP SCH (10:30)
[2022-07-15] MEDS ORDERED: MUPIROCIN CA NASAL 2% 1GM TUBE NS SCH (10:30)
[2022-07-15 12:00] VITALS: BP 117/67
[2022-07-15] MEDS ORDERED: ACET-8905 PO (12:43)
[2022-07-15] MEDS ORDERED: ONDANSETRON 4 MG/2 ML VIAL IVP PRN (12:45)
--- NOTE | 2022-07-15 13:20 | NUR ---
DC PLANNING: RECEIVED ORDER FOR DC HOME WITH [facility] FOR PT. MET WITH THE PATIENT AT THE BEDSIDE TO DISCUSS DC PLANNING AND IS IN AGREEMENT. IMM LETTER EXPLAINED, PROVIDED TO THE PATIENT. COPY OF SIGNED IMM LETTER PLACED IN CHART. Addendum: 07/15/22 at 1409 by Magaly Michel PER PATIENT, HE DOES NOT HAVE ANY PREFERENCE FOR HOME HEALTH. REFERRAL SENT TO [facility]. WILL FOLLOW UP.
--- NOTE | 2022-07-15 18:24 | NUR ---
PT DISCHARGED HOME, DISCHARGE INSTRUCTION GIVEN, AND ID AND IV REMOVED, PT ESCORTED OUT BY W\C WITH OUT .[email or web address]
== END 2022-07-15 17:20 | disposition home health service (06) | DRG 313 ==
LOC: MED 16:39 → MTU 23:42
DX: R07.89 Other chest pain (principal); I50.33 Acute on chronic diastolic (congestive) heart failure; E44.1 Mild protein-calorie malnutrition; Z68.42 Body mass index [BMI] 45.0-49.9, adult; E86.0 Dehydration; I11.0 Hypertensive heart disease with heart failure; E66.01 Morbid (severe) obesity due to excess calories; E78.5 Hyperlipidemia, unspecified; K21.9 Gastro-esophageal reflux disease without esophagitis; E55.9 Vitamin D deficiency, unspecified; N40.0 Benign prostatic hyperplasia without lower urinary tract symptoms; I25.119 Atherosclerotic heart disease of native coronary artery with unspecified angina pectoris; Z20.822 Contact with and (suspected) exposure to COVID-19; G47.33 Obstructive sleep apnea (adult) (pediatric); Z79.82 Long term (current) use of aspirin; Z79.899 Other long term (current) drug therapy
CPT/HCPCS: 36415; 71045; 72110; 80048; 80053; 81003; 83735; 83880; 84100; 84484; 85025; 85379; 87081; 93005; 93970; 96372; 96374; 96375; 96376; 97116; 97163-GP; 97530; 99285; J1650; J1940; J2270; J2405; Q0092

== ENCOUNTER 2022-09-09 15:05 | Inpatient (IN) | payer OTHER ==
[~2022-09-09] VITALS: Ht 182.9 cm; Wt 158.8 kg
[~2022-09-09 15:05] MED LIST changes: -HYDR-5080 PO; -IBUP-2213 PO; +MSCON15 PO; -NAPR-54 PO; -PRED20TA5 PO; -VITD400 PO
[2022-09-09 15:11] VITALS: BP 150/80
[2022-09-09] MEDS ORDERED: HYDROmorphone PFS 2 MG/ML SYR IM ONE (15:35)
--- NOTE | 2022-09-09 16:11 | NUR ---
PT W/C ASSISTED TO ER BED 9
--- NOTE | 2022-09-09 16:15 | NUR ---
66/M C/O CHRONIC BACK PAIN, STATES WORSENING THURSDAY. DENIES NEW INJURY OR TRAUMA, STATES HE WAS SEEN TWICE OVER THE WEEKEND AT [place] AND D/C HOME. PATIENT REPORTS TAKING HIS RX OF NORCO 10-325 AT 1000 AND OXYCODONE 15MG LAST NIGHT WITH NO RELIEF. PATIENT REPORTS 06/02, SHARP/CONSTANT, RADIATING TO RLE; WORSENS WITH PROLONGED SITTING/STANDING. DENIES INJURY, TRAUMA, FALLS. SOIL CHEMIST IN PLACE. BED LOCKED IN LOWEST POSITION, SIDE RAILS X 1. W/C ASSISTED. PMH: HTN MEDS: ATORVASTATIN, HYDRALAZINE, SULOSIN, HYDROXYZINE, PANTOPRAZOLE, LASIX, DULOXETINE, CARVEDILOL, NORCO, OXYCODONE SX: 10 BACK SX, BILATERAL HIPS, BILATERAL KNEES NKDA
--- NOTE | 2022-09-09 16:20 | NUR ---
Patient to CT via WC.
[2022-09-09 16:26] LABS: BASOPHILS # (AUTO) 0.1 K/uL (0.00-0.22); BASOPHILS % (AUTO) 0.8 % (0.0-2.0); EOSINOPHILS # (AUTO) 0.3 K/uL (0-0.4); EOSINOPHILS % (AUTO) 3.4 % (0.0-4.0); HEMATOCRIT 45.1 % (36-52); HEMOGLOBIN 15.3 g/dL (12.0-18.0); LYMPHOCYTES # (AUTO) 1.9 K/uL (2.0-11.5); LYMPHOCYTES % (AUTO) 19.1 % (20.5-51.1); MEAN CORPUSCULAR HEMOGLOBIN 29 pg (27-31); MEAN CORPUSCULAR HGB CONC 34 g/dL (33-37); MONOCYTES # (AUTO) 1.2 K/uL (0.8-1.0); MONOCYTES % (AUTO) 12.3 % (1.7-9.3); NEUTROPHILS # (AUTO) 6.4 K/uL (1.8-7.7); NEUTROPHILS % (AUTO) 64.4 % (42.2-75.2); PLATELET COUNT (AUTO) 346 K/uL (140-450); RED BLOOD CELL COUNT(AUTO) 5.31 MIL/uL (4.20-6.10); RED CELL DISTRIBUTION WIDTH 13.7 % (11.6-13.7)
--- NOTE | 2022-09-09 16:31 | NUR ---
Patient returned from CT via WC and assisted onto bed 09.
--- NOTE | 2022-09-09 16:39 | NUR ---
PA SINGLETARY EVALUATING PATIENT AT BEDSIDE
[2022-09-09 16:46] LABS: ALBUMIN 3.9 g/dL (3.4-5.0); ANION GAP 10.1 (8-16); CARBON DIOXIDE 29.5 mmol/L (21-32); POTASSIUM 4.6 mmol/L (3.5-5.1); TOTAL BILIRUBIN 0.5 mg/dL (0.0-1.0)
--- NOTE | 2022-09-09 17:06 | NUR ---
Patient resting in position of comfort. laboratory monitor in place. Minor relief to pain; 9/10 at this time.
[2022-09-09] MEDS ORDERED: LIDOCAINE 5% 1 EA PATCH TP ONE ×2 (19:05→20:14)
[2022-09-09] MEDS ORDERED: HYDROmorphone PFS 2 MG/ML SYR IVP ONE (19:05)
--- NOTE | 2022-09-09 19:20 | NUR ---
Report and transfer of care endorsed to ERNESTO Verdugo.
--- NOTE | 2022-09-09 19:30 | NUR ---
ASSUMED CARE OF PT AT THIS TIME. PT IN POSITION OF COMFORT. UPDATED PT ON POC WITH FULL RETURNED VERBAL UNDERSTANDING. WILL FOLLOW THROUGH WITH CURRENT MEDICATION ORDERS. VSS. AWAITING ADMISSION.
[2022-09-09] MEDS ORDERED: HYDROmorphone PFS 2 MG/ML SYR ONE (20:16)
[2022-09-09] MEDS ORDERED: HYDROcodone/APAP 5/325 MG 1 TAB TAB PO PRN (20:35)
--- NOTE | 2022-09-09 22:22 | NUR ---
Patient discharged with v/s stable. Written and verbal after care instructions given and explained. Patient alert, oriented and verbalized understanding of instructions. Ambulatory with steady gait. All questions addressed prior to discharge. ID band removed. Patient advised to follow up with PMD. Rx of IBUPROFEN, LIDODERM PATCH given. Patient educated on indication of medication including possible reaction and side effects. Opportunity to ask questions provided and answered.
[2022-09-09] MEDS: MORPHINE SULFATE 4 MG/ML SYR IVP PRN (23:05)
[2022-09-10] MEDS: MORPHINE SULFATE 4 MG/ML SYR IVP PRN ×4 (05:31→18:14)
--- NOTE | 2022-09-10 07:14 | NUR ---
REPORT TO JAYSON OROZCO
[2022-09-10 08:00] VITALS: BP 181/68
--- NOTE | 2022-09-10 08:02 | NUR ---
PT ARRIVED ONTO UNIT VIA WHEEL CHAIR, ACCOMPANIED BY ER NURSE AND TRANSPORTER. PT TRANSFERRED FROM WHEELCHAIR TO BED INDEPENDENTLY. PT IS ALERT AND ORIENTED X4, ABLE TO VERBALIZE NEEDS, ABLE TO FOLLOW COMMANDS. RESPIRATIONS ARE EVEN AND UNLABORED ON ROOM AIR. NO COMPLAINTS OF SOB, NO SIGNS OF DISTRESS NOTED. ABD IS NONTENDER, WITH BOWEL SOUNDS NOTED IN ALL QUADRANTS. PT IS CONTINENT OF BOWEL AND BLADDER, UTILIZES URINAL AT BEDSIDE. PT HAS FULL ROM TO UPPER AND LOWER EXTREMITIES. SKIN IS WARM, DRY, AND INTACT. PT COMPLAINTS OF PAIN, CHRONIC. STATES HE ALWAYS HAS THIS PAIN, BUT IS NOW UNBEARABLE. PT RECEIVED PAIN MEDICATION IN ER PRIOR TO TRANSFER TO THIS UNIT. MRSA SWAB DONE. VITALS TAKEN. CALL LIGHT WITHIN REACH. ALL SAFETY MEASURES IN PLACE.
--- NOTE | 2022-09-10 08:04 | NUR ---
Patient will be admitted to care of Dr. Prado. Admited to [facility]. Will go to [id number]. Belongings list completed. Report to
[2022-09-10] MEDS ORDERED: DOCUSATE SODIUM 100 MG GELCAP PO PRN (09:05)
--- NOTE | 2022-09-10 09:45 | NUR ---
PT COMPLAINING OF PAIN. STATES PAIN IS 9/10. MEDICATED.
--- NOTE | 2022-09-10 10:45 | NUR ---
WENT TO RE-ASSESS PT PAIN. PT SLEEPING AT THIS TIME.
--- NOTE | 2022-09-10 12:00 | NUR ---
DC PLANNING SW MET WITH PT AT BEDSIDE TO COMPLETE ASSESSMENT. PT ALERT AND ORIENTED AND ABLE TO PROVIDE ALL OF HIS OWN INFORMATION. PT REPORTS RESIDING IN A SINGLE STORY HOME WITH HIS AND SON AT THE ADDRESS LISTED ON FILE. PT IDENTIFIED PAWEL BRENNAN, , EMERGENCY CONTACT AND MDM.PT DECLINED TO ADD AN ADDITIONAL EC. PT DENIES HAVING AD IN PLACE AND DECLINED AD OFFERED BY SW. PT REPORTS MEETING WITH PCP, DR. AMELIA KELLEY, NEEDED, LAST VISIT; JULY 15. PT REPORTS MEDICATION COMPLIANCE AND DENIES BARRIERS IN ACCESS TO NEEDED MEDIATIONS. PT REPORTS RECEIVING MEDS FROM [facility], [facility], WHEN NEEDED. PT REPORTS BEING AMBULATORY WITH DME ASSISTANCE; FWW,WC, CANE, SB. PT REQUIRES ASSISTANCE WITH ADL'S, WHICH HIS AIDS WITH. PT REPORTS RECEIVING [facility] HOURS HOWEVER, STRUGGLED TO RECALL AMOUNT OF HRS ALLOTTED EACH MONTH. PT DENIES MH/BURKS HX. PT DENIES HX OF DIABETES, DIALYSIS TX AND HH. PT REPORTS SNF PLACEMENT WITH [facility] IN MAY 15. PT REPORTS LENGTH OF STAY WAS 14 DAYS. PT REPORTS MEETING WITH A "BACK SPECIALIST" LAST WEEK WHO RAN AN MRI. PT REPORTS THAT SPECIALIST REPORTED THAT HE MAY HAVE SPINAL DAMAGE AND PROVIDED PT WITH REFERRAL FOR OUT-PATIENT PHYSICAL THERAPY WITH [facility]. PT REPORTS HE HASN'T HAD A CHANCE TO FOLLOW UP ON OUT PT REFERRAL HOWEVER REPORTS HE PLANS ON RETURNING TO [facility] FOR PHYSICAL THERAPY. PT REPORTS TENTATIVE DC PLAN IS TO RETURN HOME WITH FAMILY PROVIDING TRANSPORTATION, WHEN MEDICALLY STABLE. SW INQUIRED ON RESOURCES NEEDED, PT DECLINED. Addendum: 09/11/22 at 0810 by Sara PARKS Amended: Links added.
[2022-09-10] MEDS: hydrALAZINE 25 MG TAB PO SCH ×2 (13:18→17:55)
--- NOTE | 2022-09-10 13:50 | NUR ---
PT COMPLAINING OF PAIN. WILL ASK ERNESTO ELIZABETH TO MEDICATE.
[2022-09-10 16:00] VITALS: BP 174/86
--- NOTE | 2022-09-10 16:21 | NUR ---
PT CALLED TO HAVE STAFF EMPTY URINAL.
--- NOTE | 2022-09-10 16:39 | NUR ---
PATIENT HAS BEEN SCREENED AND CATEGORIZED LOW NUTRITION RISK. PATIENT WILL BE SEEN WITHIN 7 DAYS OF ADMISSION. 09/16/[address] REVIEWED BY SHILO MURRAY RD
--- NOTE | 2022-09-10 17:00 | NUR ---
P.T. NOTES P.T. EVAL COMPLETED; REFER TO EVAL FOR DETAILS.
[2022-09-10] MEDS: FUROSEMIDE 40 MG TAB PO SCH (17:55)
--- NOTE | 2022-09-10 18:14 | NUR ---
PT COMPLAINING OF PAIN. MEDICATED.
--- NOTE | 2022-09-10 19:14 | NUR ---
WENT TO RE-ASSESS PT PAIN LEVEL. PT STATES PAIN IS AT 3/10, TOLERABLE.
--- NOTE | 2022-09-10 19:28 | NUR ---
RECEIVED ENDORSEMENT FROM DAY SHIFT NURSE FOR CONTINUITY OF CARE. PT IS AWAKE, ALERT AND VERBALLY RESPONSIVE. PT IS COMPLAINTS OF LOWER BACK PAIN. IV SITE IS ON RIGHT UPPER ARM 18G INTACT, HE IS ON SALINE LOCK. PT STATED THAT HE CONSUMED 100% OF HIS DINNER. SKIN INTACT. CONTINUE MONITORING.
--- NOTE | 2022-09-10 19:29 | NUR ---
ENDORSED PT TO EXTENSION EDGER NURSEJANELLE. PT IS STABLE.
[2022-09-10] MEDS: HYDROXYZINE HYDROCHLORIDE 25 MG TAB PO SCH (21:24)
[2022-09-10] MEDS: carvediloL 6.25 MG TAB PO SCH (21:25)
--- NOTE | 2022-09-10 22:27 | NUR ---
PT COMPLAINTS OF LOW BACK PAIN 05/03, PER PT, MORPHINE IS NOT EFFECTIVE AT ALL EVEN AFTER INJECTION. REPORTED TO DR. JUSTINE MD ORDER DILAUDID 1MG Q6H PRN. DR. JUSTINE GANDHI MORPHINE
[2022-09-10] MEDS: HYDROmorphone 1 MG/ML AMP IVP PRN (22:48)
--- NOTE | 2022-09-10 22:48 | NUR ---
PT COMPLAINTS OF SEVERE BACK PAIN OF 9/10, PAIN MEDICATION DILAUDID ADMINISTERED ORDER.
--- NOTE | 2022-09-10 23:48 | NUR ---
REASSESSMENT OF PAIN: PT IS SLEEPING SOUNDLY. NONFACIAL GRIMACING.
[2022-09-11] MEDS: HYDROmorphone 1 MG/ML AMP IVP PRN ×2 (05:28→11:31)
--- NOTE | 2022-09-11 05:28 | NUR ---
PT COMPLAINTS OF LOW BACK PAIN 05/03, DILAUDID ADMINISTERED ORDER.
--- NOTE | 2022-09-11 06:28 | NUR ---
RECHECKED PT, PT IS ASLEEP.
--- NOTE | 2022-09-11 07:30 | NUR ---
RECIEVED THE PATIENT FROM STREET LIGHT MECHANIC NURSE.PATIENT IS ALERT AND ORIENTED.VITALS ARE STABLE.VERBALLY RESPONSED. DISCUSSED THE PLAN OF CARE.WILL CONTINUE TO MONITOR.
--- NOTE | 2022-09-11 07:35 | NUR ---
PT IS ON STABLE CONDITION. NO COMPLAINTS OF CHEST PAIN, NO SOB OR DISTRESS. ALL SAFETY MEASURES ARE IN PLACE. ENDORSED TO DAY SHIFT NURSE FOR CONTINUITY OF CARE.
--- NOTE | 2022-09-11 07:36 | NUR ---
RECEIVED PT FROM NIGHT RN, PT IS ASLEEP AND LYING ON THE BED WITH SIDE RAILS UP AND CALL LIGHT WITHIN REACH, IV LINE NOTED ON THE RIGHT AC G. 18 ON SALINE LOCK, PT IS ON ROOM AIR, VISIBLE CHEST RISE AND FALL, RESPIRATION IS EVEN, NO SIGN OF DISTRESS NOTED AND WILL CONTINUE TO MONITOR PT.
[2022-09-11 08:00] VITALS: BP 142/88
[2022-09-11] MEDS: FUROSEMIDE 40 MG TAB PO SCH (08:56)
[2022-09-11] MEDS ORDERED: ASPIRIN 81 MG TAB.CHEW PO SCH (09:00)
[2022-09-11] MEDS ORDERED: PANTOPRAZOLE 40 MG TABEC PO SCH (09:00)
[2022-09-11] MEDS ORDERED: CHOLECALCIFEROL 1,000 IU TAB PO SCH (09:00)
[2022-09-11] MEDS ORDERED: DULoxetine 30 MG CAPDR PO SCH (09:00)
[2022-09-11] MEDS ORDERED: ATORVASTATIN 80 MG TAB PO SCH (09:00)
[2022-09-11] MEDS ORDERED: TAMSULOSIN 0.4 MG CAP PO SCH (09:00)
[2022-09-11] MEDS: hydrALAZINE 25 MG TAB PO SCH ×2 (09:01→13:00)
[2022-09-11] MEDS ORDERED: HYDR-5080 PO (09:02)
[2022-09-11] MEDS: carvediloL 6.25 MG TAB PO SCH (09:03)
[2022-09-11] MEDS: HYDROXYZINE HYDROCHLORIDE 25 MG TAB PO SCH (09:20)
--- NOTE | 2022-09-11 13:18 | NUR ---
DISCHARGED PT TO HOME ACCOMPANIED BY , DISCHARGE TEACHINGS AND INSTRUCTION GIVEN TO PT AND VERBALIZED UNDERSTANDING, IV LINE AND ARM BAND REMOVED.
== END 2022-09-11 13:18 | disposition home or self-care (01) | DRG 552 ==
LOC: MED 15:05 → MMU 20:38
DX: M54.59 Other low back pain (principal); E87.1 Hypo-osmolality and hyponatremia; I25.10 Atherosclerotic heart disease of native coronary artery without angina pectoris; E78.5 Hyperlipidemia, unspecified; G62.9 Polyneuropathy, unspecified; K21.9 Gastro-esophageal reflux disease without esophagitis; I10 Essential (primary) hypertension; N40.0 Benign prostatic hyperplasia without lower urinary tract symptoms; M47.896 Other spondylosis, lumbar region; Z20.822 Contact with and (suspected) exposure to COVID-19
CPT/HCPCS: 36415; 72131; 80053; 85025; 85651; 86140; 87081; 93005; 96372; 96374; 97112; 97116; 97530; 99285; J1170; J2270

== ENCOUNTER 2022-11-15 12:15 | Emergency (ER) | payer OTHER ==
[~2022-11-15] VITALS: Ht 182.9 cm; Wt 158.8 kg
[~2022-11-15 12:15] MED LIST changes: -ACET-8905 PO; +HYDR-5080 PO
[2022-11-15 12:20] VITALS: BP 130/78
[2022-11-15 13:10] LABS: BASOPHILS # (AUTO) 0.1 K/uL (0.00-0.22); BASOPHILS % (AUTO) 0.6 % (0.0-2.0); EOSINOPHILS # (AUTO) 0.3 K/uL (0-0.4); EOSINOPHILS % (AUTO) 2.3 % (0.0-4.0); HEMOGLOBIN 13.9 g/dL (12.0-18.0); LYMPHOCYTES # (AUTO) 1.5 K/uL (2.0-11.5); LYMPHOCYTES % (AUTO) 11.5 % (20.5-51.1); MEAN CORPUSCULAR HEMOGLOBIN 29 pg (27-31); MEAN CORPUSCULAR HGB CONC 33 g/dL (33-37); MEAN CORPUSCULAR VOLUME 86.2 fL (80-94); MONOCYTES # (AUTO) 1.7 K/uL (0.8-1.0); MONOCYTES % (AUTO) 13.1 % (1.7-9.3); NEUTROPHILS # (AUTO) 9.5 K/uL (1.8-7.7); NEUTROPHILS % (AUTO) 72.5 % (42.2-75.2); PLATELET COUNT (AUTO) 346 K/uL (140-450); RED BLOOD CELL COUNT(AUTO) 4.87 MIL/uL (4.20-6.10); RED CELL DISTRIBUTION WIDTH 14.6 % (11.6-13.7); WHITE BLOOD COUNT (AUTO) 13.1 K/uL (4.8-10.8)
[2022-11-15 13:23] LABS: CARBON DIOXIDE 30.9 mmol/L (21-32); CREATININE 1.2 mg/dL (0.6-1.3); POTASSIUM 3.9 mmol/L (3.5-5.1); TOTAL BILIRUBIN 0.4 mg/dL (0.0-1.0)
[2022-11-15] MEDS ORDERED: MORPHINE SULFATE 4 MG/ML SYR IVP ONE (13:40)
--- NOTE | 2022-11-15 14:10 | NUR ---
MEDICATED FOR KRAIG FLANK PAIN 04/02,
--- NOTE | 2022-11-15 14:29 | NUR ---
HAD CT DONE, KRAIG FLANK PAIN IMPROVED TO 2/10
[2022-11-15 16:10] LABS: APPEARANCE,URINE CLEAR (CLEAR); BILIRUBIN,URINE NEGATIVE (NEGATIVE); BLOOD, URINE 3+ (NEGATIVE); COLOR,URINE YELLOW (YELLOW); LEUKOCYTE ESTERASE ,URINE 1+ (NEGATIVE); NITRITE, URINE NEGATIVE (NEGATIVE); UGLUCOSE NEGATIVE (NEGATIVE)
--- NOTE | 2022-11-15 16:20 | NUR ---
SLEEPING, NO AC DISTRESS, O2 SAT 98% RA, SR UP TIMES 2, AWAITS DISPO.
[2022-11-15 17:00] LABS: RBC,URINE >20 (MANY) /HPF (0-5); WBC,URINE >25 (MANY) /HPF (0-5)
[2022-11-15 17:01] LABS: TRICHOMONAS,URINE None Seen /HPF (None Seen); YEAST,URINE None Seen /HPF (None Seen)
--- NOTE | 2022-11-15 17:10 | NUR ---
URINARY BAG REMOVED, CHANGED TO LEG BAG, EDUCATION ABOUT [facility] CARE GIVEN, WILL BE DC HOME
--- NOTE | 2022-11-15 17:37 | NUR ---
Patient discharged with v/s stable. Written and verbal after care instructions given and explained. Patient verbalized understanding. Pt to lobby via wc, ambulatory with steady gait. All questions addressed prior to discharge. Advised to follow up with PMD.
[2022-11-15 17:44] VITALS: BP 133/75
[2022-11-17] MEDS ORDERED: AMOX-1230 PO (22:16)
--- NOTE | 2022-11-18 08:07 | NUR ---
LATE ENTRY. RECEIVED POSITIVE URINE CULTURE. FORM GIVEN TO DR TONG. TREATMENT APPROPRIATE. FORM PLACED IN BINDER.
== END 2022-11-15 17:37 | disposition home or self-care (01) ==
LOC: MED 12:15
DX: R33.9 Retention of urine, unspecified (principal); I25.2 Old myocardial infarction; I10 Essential (primary) hypertension; Z79.899 Other long term (current) drug therapy; Z79.891 Long term (current) use of opiate analgesic; Z79.82 Long term (current) use of aspirin
CPT/HCPCS: 36415; 51702; 74177; 80053; 81001; 83690; 85025; 87086; 96374; 99285; J2270; Q9967

== ENCOUNTER 2023-01-21 18:33 | Emergency (ER) | payer OTHER ==
[~2023-01-21] VITALS: Ht 182.9 cm; Wt 163.3 kg
[~2023-01-21 18:33] MED LIST changes: +AMOX-1230 PO
[2023-01-21 18:49] VITALS: BP 138/105
--- NOTE | 2023-01-21 19:42 | NUR ---
PT TAKEN TO RADIOLOGY
[2023-01-21] MEDS ORDERED: LIDOCAINE 5% 1 EA PATCH TP ONE (20:50)
[2023-01-21] MEDS ORDERED: MORPHINE SULFATE 4 MG/ML SYR IM ONE (20:50)
[2023-01-21] MEDS ORDERED: KETOROLAC 30 MG/ML VIAL IM ONE (20:50)
--- NOTE | 2023-01-21 21:22 | NUR ---
PT SEEN LEAVING FACILITY AT THIS TIME. PT ELOPED.
== END 2023-01-21 21:22 | disposition left against medical advice (07) ==
LOC: MED 18:33
DX: S39.012A Strain of muscle, fascia and tendon of lower back, initial encounter (principal); S60.211A Contusion of right wrist, initial encounter; S40.011A Contusion of right shoulder, initial encounter; I11.0 Hypertensive heart disease with heart failure; Z79.899 Other long term (current) drug therapy; Z98.890 Other specified postprocedural states; W01.0XXA Fall on same level from slipping, tripping and stumbling without subsequent striking against object, initial encounter; Y93.89 Activity, other specified; Y92.89 Other specified places as the place of occurrence of the external cause; Y99.8 Other external cause status
CPT/HCPCS: 72131; 73030; 73110; 99284

== ENCOUNTER 2023-04-19 23:55 | Emergency (ER) | payer OTHER ==
[~2023-04-19] VITALS: Ht 182.9 cm; Wt 163.3 kg
[2023-04-20 00:03] VITALS: BP 185/108; PULSE 110; RESP 24; TEMP 97.7; O2SAT 95
[2023-04-20] MEDS ORDERED: HYDROmorphone PFS 2 MG/ML SYR IM ONE (00:55)
[2023-04-20] MEDS ORDERED: KETOROLAC 30 MG/ML VIAL IM ONE (00:55)
[2023-04-20] MEDS ORDERED: LIDOCAINE 5% 1 EA PATCH TP STA (01:05)
[2023-04-20 01:08] VITALS: BP 187/91; PULSE 89; RESP 21; O2SAT 100
[2023-04-20] MEDS ORDERED: LIDOCAINE 5% 1 EA PATCH TP SCH (09:00)
== END 2023-04-20 01:21 | disposition home or self-care (01) ==
LOC: MED 23:55
DX: M54.50 Low back pain, unspecified (principal); G89.29 Other chronic pain; J06.9 Acute upper respiratory infection, unspecified; I25.2 Old myocardial infarction; I11.0 Hypertensive heart disease with heart failure; I50.9 Heart failure, unspecified; Z79.899 Other long term (current) drug therapy; Z98.890 Other specified postprocedural states; Z20.822 Contact with and (suspected) exposure to COVID-19
CPT/HCPCS: 87426; 96372; 99284; J1170; J1885

== ENCOUNTER 2023-04-22 23:25 | Inpatient (IN) | payer OTHER ==
[~2023-04-22] VITALS: Ht 182.9 cm; Wt 165.6 kg
[2023-04-22 23:32] VITALS: BP 172/92; PULSE 100; RESP 20; TEMP 97.6; O2SAT 99
[2023-04-23] MEDS ORDERED: methylPREDNISolone SS 125 MG in WATER STERILE 2 ML IV ONE (03:20)
[2023-04-23] MEDS ORDERED: ONDANSETRON 4 MG/2 ML VIAL IVP ONE (03:20)
[2023-04-23] MEDS ORDERED: MORPHINE SULFATE 4 MG/ML SYR IVP ONE (03:20)
[2023-04-23] MEDS ORDERED: KETOROLAC 30 MG/ML VIAL IVP ONE (03:20)
[2023-04-23 03:37] LABS: BASOPHILS # (AUTO) 0.1 K/uL (0.00-0.22); BASOPHILS % (AUTO) 1.1 % (0.0-2.0); EOSINOPHILS # (AUTO) 0.7 K/uL (0-0.4); EOSINOPHILS % (AUTO) 6.6 % (0.0-4.0); HEMATOCRIT 40.8 % (36-52); HEMOGLOBIN 13.5 g/dL (12.0-18.0); LYMPHOCYTES # (AUTO) 2.4 K/uL (2.0-11.5); LYMPHOCYTES % (AUTO) 21.1 % (20.5-51.1); MEAN CORPUSCULAR HEMOGLOBIN 29 pg (27-31); MEAN CORPUSCULAR HGB CONC 33 g/dL (33-37); MEAN CORPUSCULAR VOLUME 86.9 fL (80-94); MONOCYTES # (AUTO) 1.1 K/uL (0.8-1.0); MONOCYTES % (AUTO) 9.6 % (1.7-9.3); NEUTROPHILS # (AUTO) 6.9 K/uL (1.8-7.7); NEUTROPHILS % (AUTO) 61.6 % (42.2-75.2); PLATELET COUNT (AUTO) 366 K/uL (140-450); RED BLOOD CELL COUNT(AUTO) 4.69 MIL/uL (4.20-6.10); RED CELL DISTRIBUTION WIDTH 15.1 % (11.6-13.7); WHITE BLOOD COUNT (AUTO) 11.3 K/uL (4.8-10.8)
[2023-04-23 03:49] LABS: APPEARANCE,URINE CLEAR (CLEAR); BILIRUBIN,URINE NEGATIVE (NEGATIVE); BLOOD, URINE NEGATIVE (NEGATIVE); COLOR,URINE YELLOW (YELLOW); LEUKOCYTE ESTERASE ,URINE NEGATIVE (NEGATIVE); NITRITE, URINE NEGATIVE (NEGATIVE); PROTEIN,URINE NEGATIVE (NEGATIVE); UGLUCOSE NEGATIVE (NEGATIVE); UROBILINOGEN,URINE 0.2 EU/dL (0.2 - 1)
[2023-04-23 03:57] LABS: ALBUMIN 2.9 g/dL (3.4-5.0); CALCIUM 8.6 mg/dL (8.5-10.1); CARBON DIOXIDE 27.8 mmol/L (21-32); CREATININE 1.2 mg/dL (0.6-1.3); POTASSIUM 3.8 mmol/L (3.5-5.1); TOTAL BILIRUBIN 0.2 mg/dL (0.0-1.0); TOTAL PROTEIN, SERUM 6.9 g/dL (6.4-8.2)
[2023-04-23] MEDS ORDERED: HYDROmorphone 1 MG/ML AMP IVP ONE (05:20)
[2023-04-23] MEDS ORDERED: methylPREDNISolone SS 125 MG/2 ML VIAL IVP ONE ×2 (05:35→06:30)
[2023-04-23] MEDS ORDERED: ACETAMINOPHEN 325 MG TAB PO PRN (07:10)
[2023-04-23] MEDS ORDERED: MAG SULF 2000 MG/WATER PREMIX 50 ML IV PRN (07:10)
[2023-04-23] MEDS ORDERED: ONDANSETRON 4 MG/2 ML VIAL IVP PRN (07:10)
[2023-04-23] MEDS ORDERED: ZOLPIDEM 10 MG TAB PO PRN (07:10)
[2023-04-23] MEDS ORDERED: POTASSIUM CHLORIDE 10 MEQ TABER PO PRN (07:10)
[2023-04-23] MEDS ORDERED: DOCUSATE SODIUM 100 MG GELCAP PO PRN (07:10)
[2023-04-23] MEDS ORDERED: MORPHINE SULFATE 2 MG/ML SYR IVP PRN (07:10)
[2023-04-23] MEDS: NACL 0.9% 1,000 ML IV SCH ×2 (08:16→17:15)
[2023-04-23] MEDS: MORPHINE SULFATE 4 MG/ML SYR IVP PRN ×4 (08:18→22:28)
[2023-04-23 08:40] VITALS: BP 155/91; PULSE 87; RESP 18; TEMP 97.1; O2SAT 95
[2023-04-23] MEDS: DULoxetine 30 MG CAPDR PO SCH (10:26)
[2023-04-23] MEDS: TAMSULOSIN 0.4 MG CAP PO SCH (10:26)
[2023-04-23] MEDS: FUROSEMIDE 40 MG TAB PO SCH ×2 (10:27→17:17)
[2023-04-23] MEDS: ASPIRIN 81 MG TAB.CHEW PO SCH (10:27)
[2023-04-23] MEDS: CYCLOBENZAPRINE 10 MG TAB PO SCH ×3 (10:27→17:17)
[2023-04-23] MEDS: carvediloL 6.25 MG TAB PO SCH ×2 (10:27→21:10)
[2023-04-23] MEDS: ATORVASTATIN 80 MG TAB PO SCH (10:28)
[2023-04-23] MEDS: LORazepam 2 MG/ML VIAL IVP PRN ×2 (10:30→21:13)
[2023-04-23 16:00] VITALS: BP 145/68; PULSE 87; RESP 18; TEMP 98.3; O2SAT 100
[2023-04-23 20:00] VITALS: BP 145/75; PULSE 107; RESP 20; TEMP 97.6; O2SAT 92
[2023-04-24] MEDS: MORPHINE SULFATE 4 MG/ML SYR IVP PRN ×3 (02:30→11:24)
[2023-04-24] MEDS: LORazepam 2 MG/ML VIAL IVP PRN ×2 (03:40→13:12)
[2023-04-24] MEDS: NACL 0.9% 1,000 ML IV SCH (03:41)
[2023-04-24 04:00] VITALS: BP 166/92; PULSE 102; RESP 20; TEMP 96; O2SAT 92
[2023-04-24] MEDS ORDERED: hydrALAZINE 20 MG/ML VIAL IVP ONE (06:05)
[2023-04-24 08:00] VITALS: BP 165/95; PULSE 91; PULSE 98; RESP 18; TEMP 98; O2SAT 96
[2023-04-24] MEDS ORDERED: hydrALAZINE 25 MG TAB PO SCH (09:00)
[2023-04-24] MEDS: TAMSULOSIN 0.4 MG CAP PO SCH (09:02)
[2023-04-24] MEDS: DULoxetine 30 MG CAPDR PO SCH (09:02)
[2023-04-24] MEDS: carvediloL 6.25 MG TAB PO SCH (09:03)
[2023-04-24] MEDS: CYCLOBENZAPRINE 10 MG TAB PO SCH ×2 (09:04→13:11)
[2023-04-24] MEDS: hydrALAZINE 25 MG TAB PO SCH ×2 (09:04→13:12)
[2023-04-24] MEDS: FUROSEMIDE 40 MG TAB PO SCH (09:04)
[2023-04-24] MEDS: ATORVASTATIN 80 MG TAB PO SCH (09:05)
[2023-04-24] MEDS: ASPIRIN 81 MG TAB.CHEW PO SCH (09:08)
[2023-04-24] MEDS ORDERED: HYDROcodone/APAP 10/325 MG 1 TAB TAB PO PRN (09:50)
[2023-04-24] MEDS ORDERED: HYDR-5080 PO (11:39)
[2023-04-24 13:00] VITALS: BP 138/73
[2023-04-24 14:40] VITALS: BP 165/95; PULSE 91; RESP 18; TEMP 98
== END 2023-04-24 17:55 | disposition home or self-care (01) | DRG 552 ==
LOC: MED 23:25 → MMU 04-23 07:18 → MTU 04-23 08:27
PROVIDERS: ADMIT General Practice; ATTEND General Practice
DX: M51.36 Other intervertebral disc degeneration, lumbar region (principal); F11.20 Opioid dependence, uncomplicated; Z68.42 Body mass index [BMI] 45.0-49.9, adult; E44.0 Moderate protein-calorie malnutrition; G89.29 Other chronic pain; M47.816 Spondylosis without myelopathy or radiculopathy, lumbar region; K21.9 Gastro-esophageal reflux disease without esophagitis; E66.01 Morbid (severe) obesity due to excess calories; I10 Essential (primary) hypertension; I25.10 Atherosclerotic heart disease of native coronary artery without angina pectoris; E78.5 Hyperlipidemia, unspecified; F32.A Depression, unspecified
CPT/HCPCS: 36415; 80053; 81003; 85025; 87081; 96374; 96375; 99285; J0360; J1170; J1644; J1885; J2060; J2270; J2405; J2930

== ENCOUNTER 2024-06-09 12:31 | Emergency (ER) | payer OTHER ==
[~2024-06-09] VITALS: Ht 182.9 cm; Wt 167.8 kg
[~2024-06-09 12:31] MED LIST changes: -AMOX-1230 PO; -HYDR-4420 PO; +HYDR-5856 PO
[2024-06-09 12:51] VITALS: BP 141/93; PULSE 95; RESP 19; TEMP 98.1; O2SAT 95
[2024-06-09] MEDS ORDERED: diphenhydrAMINE 50 MG/ML VIAL ONE (13:54)
[2024-06-09] MEDS: diphenhydrAMINE 50 MG/ML VIAL IVP ONE (13:56)
[2024-06-09] MEDS: MORPHINE SULFATE 4 MG/ML SYR IVP ONE ×3 (13:58→16:41)
[2024-06-09 14:04] LABS: BASOPHILS # (AUTO) 0.1 K/uL (0.00-0.22); BASOPHILS % (AUTO) 0.5 % (0.0-2.0); EOSINOPHILS # (AUTO) 0.3 K/uL (0-0.4); EOSINOPHILS % (AUTO) 2.8 % (0.0-4.0); HEMOGLOBIN 16.5 g/dL (12.0-18.0); LYMPHOCYTES # (AUTO) 1.9 K/uL (2.0-11.5); LYMPHOCYTES % (AUTO) 17.1 % (20.5-51.1); MEAN CORPUSCULAR HEMOGLOBIN 29 pg (27-31); MEAN CORPUSCULAR HGB CONC 33 g/dL (33-37); MONOCYTES # (AUTO) 1.2 K/uL (0.8-1.0); MONOCYTES % (AUTO) 10.2 % (1.7-9.3); NEUTROPHILS # (AUTO) 7.9 K/uL (1.8-7.7); NEUTROPHILS % (AUTO) 69.4 % (42.2-75.2); PLATELET COUNT (AUTO) 360 K/uL (140-450); RED BLOOD CELL COUNT(AUTO) 5.68 MIL/uL (4.20-6.10); RED CELL DISTRIBUTION WIDTH 14.5 % (11.6-13.7); WHITE BLOOD COUNT (AUTO) 11.4 K/uL (4.8-10.8)
[2024-06-09 14:14] LABS: ANION GAP 11.4 (8-16); CALCIUM 9.1 mg/dL (8.5-10.1); CREATININE 1.1 mg/dL (0.6-1.3); POTASSIUM 4.4 mmol/L (3.5-5.1)
[2024-06-09 16:04] LABS: APPEARANCE,URINE CLEAR (CLEAR); BILIRUBIN,URINE NEGATIVE (NEGATIVE); BLOOD, URINE NEGATIVE (NEGATIVE); COLOR,URINE YELLOW (YELLOW); LEUKOCYTE ESTERASE ,URINE NEGATIVE (NEGATIVE); NITRITE, URINE NEGATIVE (NEGATIVE); PROTEIN,URINE NEGATIVE (NEGATIVE); UGLUCOSE NEGATIVE (NEGATIVE); UROBILINOGEN,URINE 0.2 EU/dL (0.2 - 1)
[2024-06-09 17:20] VITALS: BP 168/96; PULSE 84; RESP 12; TEMP 98; O2SAT 97
== END 2024-06-09 17:20 | disposition home or self-care (01) ==
LOC: MED 12:31
DX: G89.29 Other chronic pain (principal); M54.50 Low back pain, unspecified; R30.0 Dysuria; R31.9 Hematuria, unspecified; I11.0 Hypertensive heart disease with heart failure; I50.9 Heart failure, unspecified; I25.10 Atherosclerotic heart disease of native coronary artery without angina pectoris; I25.2 Old myocardial infarction; Z98.890 Other specified postprocedural states; Z79.899 Other long term (current) drug therapy
CPT/HCPCS: 36415; 71045; 80048; 81003; 84484; 85025; 93005; 96374; 96375; 96376; 99285; J1200; J2270